=== PATIENT | male | born 1945 | race Caucasian/White ===

== ENCOUNTER 2017-10-27 09:12 | Observation (INO) | payer MEDICARE, OTHER ==
[2017-10-27] VITALS (9 sets, daily range): BP systolic 100–132; BP diastolic 65–89; PULSE 86–107; RESP 16–20; TEMP 96.9–97.9; O2SAT 96–98
[~2017-10-27] VITALS: Ht 185.4 cm; Wt 118.0 kg
[2017-10-27] MEDS ORDERED: CENTCHW4 CHEW (09:22)
[2017-10-27] MEDS ORDERED: LIPI10TA PO (09:22)
[2017-10-27] MEDS ORDERED: LISI2.5T3 PO (09:22)
[2017-10-27] MEDS ORDERED: CORE25TA PO (09:22)
[2017-10-27] MEDS ORDERED: APIX2.5T PO (09:22)
[2017-10-27] MEDS ORDERED: METF500T PO (09:22)
[2017-10-27] MEDS ORDERED: FENO50TA PO (09:22)
[2017-10-27] MEDS ORDERED: ASPI-516 CHEW (09:22)
--- NOTE | 2017-10-27 10:06 | PD ---
HPI Chief Complaint: Back/ Neck Pain or Injury Time Seen by Provider: 09:33 Travel History International Travel<30 days: No Contact w/Intl Traveler<30days: No Traveled to known affect area: No History of Present Illness HPI 72yo M with PMH of CAD, AICD, sleep apnea presents to the ED with c/o bilateral lower extremity numbness that lasted about 5 minutes today. Pt said he was at [facility] and all of a sudden felt a little tingling in left leg. Then he was not able to feel both his legs from thigh down. He said he was not able to move as well. Said he has never had this before. He does have history of sciatica but never had numbness in bilateral lower extremities. Denies any history of TIA or CVA. Denies any fever, chest pain, sob, n/v, abdominal pain, back pain, fall. PFSH Past Medical History Hx Anticoagulant Therapy: Yes Atrial Fibrillation: Yes Heart Rhythm Problems: Yes (A-fib) Cardiac Catheterization: Yes Cardiovascular Problems: Yes (A-fib, MCCARTHY x5) High Cholesterol: Yes Chest Pain: Yes Diabetes: Yes Patient Takes Glucophage: Yes Diminished Hearing: No Hypertension: Yes Myocardial Infarction: Yes (x5) Tetanus Vaccination: Unknown Influenza Vaccination: No ?: Not Past Surgical History AICD: Yes Cardiac Surgery: Yes (CABG x5, Pacer in/out, second pacer in) Coronary Stent: Yes Social History Alcohol Use: No Tobacco Use: No Substance Use: No Allergies-Medications (Allergen,Severity, Reaction): Coded Allergies: MRI PRECAUTION (Verified Allergy, Severe, DEFIBRILLATOR, 10/27/17) PACEMAKER DIFIBRILLATOR, 10/27/17 DML amitriptyline (Verified Allergy, Unknown, 10/27/17) indomethacin (Verified Allergy, Unknown, 10/27/17) meperidine (Verified Allergy, Unknown, 10/27/17) Reported Meds & Prescriptions Reported Meds & Active Scripts Active Reported Lasix (Furosemide) 20 Mg Tab Unknown Dose PO BID Ecotrin Low Strength (Aspirin) 81 Mg Tabdr 81 Mg PO DAILY Eliquis (Apixaban) 2.5 Mg Tab 2.5 Mg PO BID Tricor (Fenofibrate) 145 Mg Tab 145 Mg PO EVERY OTHER DAY Takw with food. Metformin (Metformin HCl) 500 Mg Tab 500 Mg PO BIDPC Lisinopril 2.5 Mg Tab 2.5 Mg PO DAILY Lipitor (Atorvastatin Calcium) 10 Mg Tab 10 Mg PO HS Coreg (Carvedilol) 25 Mg Tab 25 Mg PO DAILY Centrum (Multiple Vitamins W/ Minerals) 1 Chew 1 Tab CHEW DAILY Review of Systems Except as stated in HPI: all other systems reviewed are Neg Physical Exam Narrative GENERAL: 72yo M not in distress. SKIN: Focused skin assessment warm/dry. HEAD: Atraumatic. Normocephalic. EYES: Pupils equal and round. No scleral icterus. No injection or drainage. CARDIOVASCULAR: Regular rate and rhythm. No murmur appreciated. RESPIRATORY: No accessory muscle use. Clear to auscultation. Breath sounds equal bilaterally. GASTROINTESTINAL: Abdomen soft, non-tender, nondistended. BACK: No midline ttp thoracic or lumbar ttp. MUSCULOSKELETAL: No obvious deformities. No clubbing. No cyanosis. No edema. NEUROLOGICAL: Awake and alert. No obvious cranial nerve deficits. Motor grossly within normal limits. Normal speech. PSYCHIATRIC: Appropriate mood and affect; insight and judgment normal. Data Data Last Documented VS Vital Signs Date Time Temp Pulse Resp B/P (MAP) Pulse Ox O2 Delivery O2 Flow Rate FiO2 10/27/17 11:08 95 102/66 (78) 96 10/27/17 09:23 97[address] Brain W/O Iv Contrast(Rout) (10/27/17 ) Complete Blood Count With Diff (10/27/17 09:43) Basic Metabolic Panel (Bmp) (10/27/17 09:43) Prothrombin Time / Inr (Pt) (10/27/17 09:43) Act Partial Throm Time (Ptt) (10/27/17 09:43) Electrocardiogram (10/27/17 ) Admit Order (Ed Use Only) (10/27/17 11:34) Labs Laboratory Tests Test 10/27/17 10:02 White Blood Count 4.0 TH/MM3 Red Blood Count 4.40 MIL/MM3 Hemoglobin 12.1 GM/DL Hematocrit 38.3 % Mean Corpuscular Volume 87.1 FL Mean Corpuscular Hemoglobin 27.5 PG Mean Corpuscular Hemoglobin Concent 31.6 % Red Cell Distribution Width 16.2 % Platelet Count 214 TH/MM3 Mean Platelet Volume 8.7 FL Neutrophils (%) (Auto) 64.7 % Lymphocytes (%) (Auto) 20.4 % Monocytes (%) (Auto) 8.2 % Eosinophils (%) (Auto) 3.0 % Basophils (%) (Auto) 3.7 % Neutrophils # (Auto) 2.7 TH/MM3 Lymphocytes # (Auto) 0.8 TH/MM3 Monocytes # (Auto) 0.3 TH/MM3 Eosinophils # (Auto) 0.1 TH/MM3 Basophils # (Auto) 0.1 TH/MM3 CBC Comment DIFF FINAL Differential Comment Prothrombin Time 16.2 SEC Prothromb Time International Ratio 1.6 RATIO Activated Partial Thromboplast Time 27.1 SEC Blood Urea Nitrogen 24 MG/DL Creatinine 1.30 MG/DL Random Glucose 100 MG/DL Calcium Level 8.8 MG/DL Sodium Level 141 MEQ/L Potassium Level 4.1 MEQ/L Chloride Level 104 MEQ/L Carbon Dioxide Level 27.6 MEQ/L Anion Gap 9 MEQ/L Estimat Glomerular Filtration Rate 55 ML/MIN MDM Medical Decision Making Medical Screen Exam Complete: Yes Emergency Medical Condition: Yes Interpretation(s) EKG: Paced rhythm. Differential Diagnosis TIA vs. sciatica vs. radiculopathy Narrative Course 72yo M here with sudden onset bilateral lower extremity numbness for about 5 minutes. Said he was not able to feel his legs from waist down and was not able to move. However, pt has full sensation now and no focal neurologic deficit. Denies any fall, back pain or urinary complaints. Labs reviewed, no leukocytosis. BMP unremarkable. CT brain negative. Pt given aspirin. Will admit for TIA work up and consult neurology. Discussed with Dr. Henriquez and accepted to his service. Pt took his ecotrin today already. Diagnosis Primary Impression: TIA (transient ischemic attack) Qualified Codes: G45.9 - Transient cerebral ischemic attack, unspecified Admitting Information Admitting Physician Requests: Observation JerilynMarily DO Oct 27, 2017 10:06
[2017-10-27 10:09] LABS: AUTOMATED NEUTROPHIL # 2.7 TH/MM3 (1.8-7.7); BASOPHIL # 0.1 TH/MM3 (0-0.2); BASOPHIL % 3.7 % (0.0-2.0); EOSINOPHIL # 0.1 TH/MM3 (0-0.4); HEMATOCRIT 38.3 % (39.0-51.0); HEMOGLOBIN 12.1 GM/DL (13.0-17.0); LYMPH % 20.4 % (9.0-44.0); LYMPHOCYTE # 0.8 TH/MM3 (1.0-4.8); MEAN CELL VOLUME 87.1 FL (80.0-100.0); MEAN CORPUSCULAR HEMOGLOBIN 27.5 PG (27.0-34.0); MEAN CORPUSCULAR HGB CONC 31.6 % (32.0-36.0); MEAN PLATELET VOLUME 8.7 FL (7.0-11.0); MONO % 8.2 % (0.0-8.0); MONOCYTE # 0.3 TH/MM3 (0-0.9); NEUT % 64.7 % (16.0-70.0); PLATELET COUNT 214 TH/MM3 (150-450); RED CELL DISTRIBUTION WIDTH 16.2 % (11.6-17.2)
[2017-10-27 10:27] LABS: CALCIUM 8.8 MG/DL (8.5-10.1)
[2017-10-27 10:28] LABS: BICARBONATE 27.6 MEQ/L (21.0-32.0)
[2017-10-27 10:30] LABS: INTERNATIONAL NORMALIZED RATIO 1.6 RATIO; PROTHROMBIN TIME - PATIENT 16.2 SEC (9.8-11.6)
[2017-10-27 10:31] LABS: CREATININE 1.3 MG/DL (0.60-1.30)
--- NOTE | 2017-10-27 10:56 | RADRPT ---
EXAM DATE/TIME: 10/27/2017 10:21 [facility] COMPARISON: No previous studies available for comparison. INDICATIONS : Leg weakness, TIA RADIATION DOSE: 64.16 CTDIvol (mGy) MEDICAL HISTORY : Cardiovascular disease. Hypercholesterolemia. Afib, stents SURGICAL HISTORY : CABG Pacemaker. ENCOUNTER: Initial ACUITY: 2 days PAIN SCALE: 0/10 LOCATION: Bilateral lower extremity TECHNIQUE: Multiple contiguous axial images were obtained of the head. Using automated exposure control and adj ustment of the mA and/or kV according to patient size, radiation dose was kept as low as reasonably a chievable to obtain optimal diagnostic quality images. DICOM format image data is available electro nically for review and comparison. FINDINGS: CEREBRUM: The ventricles are normal for age. No evidence of midline shift, mass lesion, hemorrhage or acute in farction. No extra-axial fluid collections are seen. POSTERIOR FOSSA: The cerebellum and brainstem are intact. The 4th ventricle is midline. The cerebellopontine angle i s unremarkable. EXTRACRANIAL: The visualized portion of the orbits is intact. SKULL: The calvaria is intact. No evidence of skull fracture. CONCLUSION: Normal examination. Jaci Aquino MD on October 27, 2017 at 10:53 Board Certified Radiologist. This report was verified electronically.
[2017-10-27] MEDS ORDERED: ASPI-147 PO (11:36)
[2017-10-27] MEDS ORDERED: FURO1TAB62 PO (12:56)
[2017-10-27] MEDS ORDERED: BISACODYL 10 MG SUPP RECTAL PRN (13:15)
[2017-10-27] MEDS ORDERED: MAGNESIUM HYDROXIDE SUSP 30 ML CUP PO PRN (13:15)
[2017-10-27] MEDS ORDERED: NALOXONE HCL 0.4 MG/ML AMP IV PUSH PRN (13:15)
[2017-10-27] MEDS ORDERED: SENNOSIDES 8.6 MG TAB PO PRN (13:15)
[2017-10-27] MEDS ORDERED: ACETAMINOPHEN 325 MG TAB PO PRN (13:15)
[2017-10-27] MEDS ORDERED: ONDANSETRON HCL 4 MG/2 ML VIAL IVP PRN (13:15)
[2017-10-27] MEDS ORDERED: SODIUM CHLORIDE 0.9% FLUSH 10 ML FLUSH IV FLUSH PRN (13:15)
[2017-10-27] MEDS ORDERED: PILL SPLITTER OTHER PRN (13:45)
--- NOTE | 2017-10-27 14:53 | RADRPT ---
EXAM DATE/TIME: 10/27/2017 13:42 [facility] COMPARISON: No previous studies available for comparison. INDICATIONS : Transient ischemic attack. MEDICAL HISTORY : Myocardial infarction. Hypercholesterolemia. Hypertension. Atrial fibrillation. Anticoagulant therapy . Diabetes. SURGICAL HISTORY : Pacemaker. Coronary artery stent. Cardiac catheterization. Rotator cuff surgery. Bilateral knee art hroscopy. ENCOUNTER: Initial ACUITY: 1 day PAIN SCORE: 0/10 LOCATION: Bilateral neck PEAK SYSTOLIC VELOCITIES (cm/sec): ICA/CCA RATIO: Right: 1.4 Left: 0.8 ICA: Right: 82.7 Left: 62.5 CCA: Right: 57.0 Left: 77.4 ECA: Right: 54.8 Left: 50.5 VERTEBRAL: Right: 36.2 antegrade Left: 36.5 antegrade Elevated flow velocities and ICA/CCA ratios have been found to correlate with increased degrees of vessel stenosis, calculated as percentage of diameter relative to a normal segment of distal ICA/CCA FINDINGS: RIGHT CAROTID: No significant stenosis is visualized. The waveforms are within normal limits. LEFT CAROTID: No significant stenosis is visualized. The waveforms are within normal limits. VERTEBRAL ARTERIES: Antegrade flow is seen in both vertebral arteries. MISCELLANEOUS: None. CONCLUSION: No evidence of hemodynamically significant carotid stenosis. Sixto Garcia MD on October 27, 2017 at 14:50 Board Certified Radiologist. This report was verified electronically.
[2017-10-27] MEDS ORDERED: ASPIRIN 325 MG TAB PO ONE (15:30)
[2017-10-27] MEDS: APIXABAN 2.5 MG TABLET PO SCH (20:11)
[2017-10-27] MEDS: CARVEDILOL 12.5 MG TAB PO SCH (20:12)
[2017-10-27] MEDS: FUROSEMIDE 40 MG TAB PO SCH (20:12)
[2017-10-27] MEDS: SODIUM CHLORIDE 0.9% FLUSH 10 ML FLUSH IV FLUSH SCH (20:12)
[2017-10-27] MEDS: DOCUSATE SODIUM 50 MG/SENNA 8.6 MG TAB PO SCH (20:12)
[2017-10-27] MEDS: metFORMIN HCL 500 MG TAB PO SCH (20:12)
--- NOTE | 2017-10-27 20:22 | RADRPT ---
EXAM DATE/TIME: 10/27/2017 19:20 [facility] COMPARISON: No previous studies available for comparison. INDICATIONS : Low back pain and leg weakness RADIATION DOSE: 40.45 CTDIvol (mGy) ; Patient body habitus MEDICAL HISTORY : Cardiovascular disease. Hypertension. Diabetes mellitus type 2. SURGICAL HISTORY : Pacemaker. CABGrotator cuff, bilat knee ENCOUNTER: Initial ACUITY: 1 day PAIN SCALE: 5/10 LOCATION: lower back TECHNIQUE: Volumetric scanning of the lumbar spine was performed. Multiplanar reconstructions in the sagittal, coronal and oblique axial planes were performed. Using automated exposure control and adjustment of the mA and/or kV according to patient size, radiation dose was kept as low as reasonably achievable t o obtain optimal diagnostic quality images. DICOM format image data is available electronically for review and comparison. FINDINGS: Mild to moderate levoconvex curvature of the lumbar spine centered around L3. No fracture or subluxat ion. Vertebral bodies have normal height. T12-L1: The disc height is within normal limits. Mild bilateral facet osteoarthritis. No foraminal or spinal stenosis. L1-L2: The disc has mild/moderate loss of height and vacuum phenomena. There is a small, broad/diffuse disc osteophyte complex and mild bilateral facet osteoarthritis. There is mild spinal stenosis, mostly lef t lateral recess. There is mild right and mild to moderate left foraminal stenosis. L2-L3: The disc has moderate to severe loss of height and vacuum phenomena. There is a small, broad/diffuse disc osteophyte complex and moderate bilateral facet osteoarthritis. No significant spinal stenosis. There is moderate bilateral foraminal stenosis. L3-L4: The disc has moderate loss of height and vacuum phenomena. There is a small, broad/diffuse disc osteo phyte complex. A superimposed and potentially more acute broad right paracentral/foraminal disc protr usion is present and probably impinging on the exiting right L3 nerve root. There is also mild mass e ffect on the right lateral recess. There is moderate to severe chronic appearing foraminal stenosis o n the left. L4-L5: The disc has moderate loss of height and vacuum phenomena. There is a small moderate, broad/diffuse d isc osteophyte complex and moderate to severe bilateral facet osteoarthritis. There is mild spinal st enosis, mostly the right lateral recess. There is moderate right and mild to moderate left foraminal stenosis. L5-S1: The disc has moderate loss of height and vacuum phenomena. There is a small, broad/diffuse disc osteo phyte complex and moderate to severe bilateral facet osteoarthritis. No significant spinal stenosis. There is severe bilateral foraminal stenosis. CONCLUSION: 1. Multilevel lumbar spine degenerative changes as above. 2. High-grade bilateral foraminal stenosis at L5/S1 and on the right at L3/L4.. Mostly mild and moder ate degrees foraminal stenosis at the other levels. Please see above. 3. No high-grade spinal stenosis demonstrated. 4. Mild to moderate levoconvex curvature. No fracture or acute appearing malalignment. Santana Garcia MD on October 27, 2017 at 20:12 Board Certified Radiologist. This report was verified electronically.
[2017-10-27] MEDS ORDERED: ATORVASTATIN 10 MG TAB PO SCH (21:00)
--- NOTE | 2017-10-27 21:10 | MB ---
cc: MIGUELINA NGUYỄN MD DATE OF CONSULTATION 10/27/17 He is a 72-year-old seen in neurological consultation. The patient was at the ____ store today when he developed leg numbness bilaterally. It started with lower back pain. It was a bit different from his usual sciatica in the past, because this time both legs were involved and, in the past, it used to be only one leg. He has a history of sciatica and he took shots to the lower back for quite some time but has not had a shot in months. He also has a history of left foot neuropathy which he admits being related to a vein being harvested for surgery in the past. He is diabetic. He describes that he was not quite able to walk for five or 10 minutes this morning. Then the symptoms subsided. He did not lose bladder control. He feels he is back to baseline. He has a history of atrial fibrillation. MEDICATIONS 1. Eliquis 2. Ecotrin. 3. Tricor 4. Metformin, 5. Lisinopril 6. Lipitor 7. Coreg NEUROLOGIC EXAM The patient is alert and very pleasant, oriented. Mentation is completely normal. Multiple family members are at bedside. Ocular movements and visual singh full. His strength seems normal. He is able to walk independently. He has good dorsiflexion of the feet. His reflexes were absent throughout and plantar response is flexor. Perception to position sense was normal in the distal lower extremities. ASSESSMENT 1. Transient lower back pain with some numbness in the lower extremities, lasting only a few minutes. 2. History of sciatica treated with injections in the past. 3. History of atrial fibrillation on aspirin and Eliquis. CT brain and carotid ultrasound were unremarkable. He denies a history of cancer. CBC essentially unremarkable as well as basic chemistry. I am going to add a lumbar spine CT scan without contrast. The patient has a pacemaker/AICD and there had been some arrhythmia. If the CT scan lumbar spine is unremarkable, then neurologic wong he could be followed as outpatient. Thank you for asking us to assist in his care. MD KAMRAN Izaguirre/SA /4:51 PM /8:44 PM
[2017-10-28] VITALS: BP 105/72; PULSE 84; RESP 16; TEMP 97.4; O2SAT 98
[2017-10-28 04:00] VITALS: BP 104/73; PULSE 70; RESP 16; TEMP 96.5; O2SAT 99
[2017-10-28 08:00] VITALS: BP 141/79; PULSE 78; RESP 18; TEMP 97.2; O2SAT 93
[2017-10-28 08:03] LABS: AUTOMATED NEUTROPHIL # 2.4 TH/MM3 (1.8-7.7); EOSINOPHIL # 0.1 TH/MM3 (0-0.4); EOSINOPHIL % 3.3 % (0.0-4.0); HEMATOCRIT 37.7 % (39.0-51.0); HEMOGLOBIN 11.9 GM/DL (13.0-17.0); LYMPH % 29.8 % (9.0-44.0); LYMPHOCYTE # 1.3 TH/MM3 (1.0-4.8); MEAN CELL VOLUME 87.3 FL (80.0-100.0); MEAN CORPUSCULAR HEMOGLOBIN 27.7 PG (27.0-34.0); MEAN CORPUSCULAR HGB CONC 31.7 % (32.0-36.0); MEAN PLATELET VOLUME 8.9 FL (7.0-11.0); MONO % 10.6 % (0.0-8.0); MONOCYTE # 0.4 TH/MM3 (0-0.9); NEUT % 55.3 % (16.0-70.0); PLATELET COUNT 201 TH/MM3 (150-450); RED BLOOD COUNT 4.31 MIL/MM3 (4.50-5.90); RED CELL DISTRIBUTION WIDTH 15.6 % (11.6-17.2); WHITE BLOOD COUNT 4.2 TH/MM3 (4.0-11.0)
--- NOTE | 2017-10-28 08:15 | HHI.HP ---
[facility]Staff Ad[facility] Diagnosis TIA Diagnoses: Travel History International Travel<30 Days: No Contact w/Intl Traveler <30 Da: No Traveled to Known Affected Are: No History of Present Illness LATE ENTRY DOS 10/27 72-year-old white male being admitted for possible strokelike symptoms. Patient was in his usual state of health until earlier today when he was at a gas station and experienced a sudden onset of bilateral lower extremity dysesthesias. He says this was alarming to him since he only has some pain and dysesthesias intermittently in his left leg with a known history of sciatica. But this was a new bilateral onset picture and he felt as if he also had an unsteady gait at the same time. This spontaneously self resolved shortly afterwards but alarmed him enough to come to the emergency department. He denies having any new pain anywhere in his body. Denies any facial droop, slurred speech, visual disturbances, or any focal weakness in any limb. He denies having any changes in his urinary or defecation abilities. He reports being compliant with all his medications. Identifies himself as a snowbird. Past Medical History Atrial Fibrillation: CAD Diabetes Hypertension Past Surgical History AICD: CABG x5, Pacer in/out, second pacer in Coronary Stent Social History Alcohol Use: No Tobacco Use: No Substance Use: No Review of Systems Except as stated in HPI: all other systems reviewed are Neg Past Family Social History Allergies: Coded Allergies: MRI PRECAUTION (Verified Allergy, Severe, DEFIBRILLATOR, 10/27/17) PACEMAKER DIFIBRILLATOR, 10/27/17 DML amitriptyline (Verified Allergy, Unknown, 10/27/17) indomethacin (Verified Allergy, Unknown, 10/27/17) meperidine (Verified Allergy, Unknown, 10/27/17) Physical Exam Vital Signs Vital Signs Date Time Temp Pulse Resp B/P (MAP) Pulse Ox O2 Delivery O2 Flow Rate FiO2 10/28/17 04:00 96.5 70 16 104/73 (83) 99 10/28/17 00:00 97.4 84 16 105/72 (83) 98 1/27/18 20:16 96 21 10/27/17 20:15 100/82 (88) 10/27/17 20:00 97.8 98 16 100/89 (93) 97 10/27/17 15:50 96.9 107 20 132/76 (94) 96 10/27/17 15:01 99 10/27/17 13:45 97.2 86 20 115/65 (82) 96 10/27/17 13:30 10/27/17 13:00 102 16 108/74 (85) 98 Room Air 10/27/17 11:08 95 102/66 (78) 96 10/27/17 09:23 97.9 91 18 115/89 (98) 96 Physical Exam VS: afebrile GENERAL: [Elderly white male, well-nourished, no acute distress SKIN: Warm and dry. EYES: Pupils equal and round. No scleral icterus. No injection or drainage. ENT: No nasal bleeding or discharge. CARDIOVASCULAR: Regular rate and rhythm. no murmurs RESPIRATORY: No accessory muscle use. Clear to auscultation. Breath sounds equal bilaterally. GASTROINTESTINAL: Abdomen soft, non-tender, nondistended. Extremities: No clubbing, cyanosis, or edema. No obvious deformities. MUSCULOSKELETAL: grossly intact ROM with 5/5 strength in upper and lower extremities proximally; adequate muscle bulk and tone for age and habitus NEUROLOGICAL: Awake and alert. No obvious cranial nerve deficits. No facial droop nor slurred speech noted. Intact sensation to light finger touch bilaterally over face, upper extremities and lower extremities. Has symmetrical +1 reflexes over bilateral patellas. PSYCHIATRIC: Appropriate mood and affect; insight and judgment normal. Laboratory Laboratory Tests Test 10/27/17 10:02 10/28/17 07:31 White Blood Count 4.0 4.2 Red Blood Count 4.40 4.31 Hemoglobin 12.1 11.9 Hematocrit 38.3 37.7 Mean Corpuscular Volume 87.1 87.3 Mean Corpuscular Hemoglobin 27.5 27.7 Mean Corpuscular Hemoglobin Concent 31.6 31.7 Red Cell Distribution Width 16.2 15.6 Platelet Count 214 201 Mean Platelet Volume 8.7 8.9 Neutrophils (%) (Auto) 64.7 55.3 Lymphocytes (%) (Auto) 20.4 29.8 Monocytes (%) (Auto) 8.2 10.6 Eosinophils (%) (Auto) 3.0 3.3 Basophils (%) (Auto) 3.7 1.0 Neutrophils # (Auto) 2.7 2.4 Lymphocytes # (Auto) 0.8 1.3 Monocytes # (Auto) 0.3 0.4 Eosinophils # (Auto) 0.1 0.1 Basophils # (Auto) 0.1 0.0 CBC Comment DIFF FINAL DIFF FINAL Differential Comment Prothrombin Time 16.2 Prothromb Time International Ratio 1.6 Activated Partial Thromboplast Time 27.1 Blood Urea Nitrogen 24 Creatinine 1.30 Random Glucose 100 Calcium Level 8.8 Sodium Level 141 141 Potassium Level 4.1 3.5 Chloride Level 104 103 Carbon Dioxide Level 27.6 Anion Gap 9 Estimat Glomerular Filtration Rate 55 Result Diagram: 10/28/17 0731 10/27/17 1002 Gabrielle VTE Risk Assessment Caprini VTE Risk Assessment: Mod/High Risk (score >= 2) Caprini Risk Assessment Model Point Value = 1 Point Value = 2 Point Value = 3 Point Value = 5 Age 41-60 Minor surgery BMI > 25 kg/m2 Swollen legs Varicose veins or History of unexplained or recurrent spontaneous Oral contraceptives or hormone replacement Sepsis (< 1 month) Serious lung disease, including pneumonia (< 1 month) Abnormal pulmonary function Acute myocardial infarction Congestive heart failure (< 1 month) History of inflammatory bowel disease Medical patient at bed rest Age 61-74 Arthroscopic surgery Major open surgery (> 45 min) Laparoscopic surgery (> 45 min) Malignancy Confined to bed (> 72 hours) Immobilizing plaster cast Central venous access Age >= 75 History of VTE Family history of VTE Factor V Leiden Prothrombin [id number] Lupus anticoagulant Anticardiolipin antibodies Elevated serum homocysteine Heparin-induced thrombocytopenia Other congenital or acquired thrombophilia Stroke (< 1 month) Elective arthroplasty Hip, pelvis, or leg fracture Acute spinal cord injury (< 1 month) Prophylaxis Regimen Total Risk Factor Score Risk Level Prophylaxis Regimen 0-1 Low Early ambulation 2 Moderate Order ONE of the following: *Sequential Compression Device (SCD) *Heparin 5000 units SQ BID 3-4 Higher Order ONE of the following medications: *Heparin 5000 units SQ TID *Enoxaparin/Lovenox 40 mg SQ daily (WT < 150 kg, CrCl > 30 mL/min) *Enoxaparin/Lovenox 30 mg SQ daily (WT < 150 kg, CrCl > 10-29 mL/min) *Enoxaparin/Lovenox 30 mg SQ BID (WT < 150 kg, CrCl > 30 mL/min) AND/OR *Sequential Compression Device (SCD) 5 or more Highest Order ONE of the following medications: *Heparin 5000 units SQ TID (Preferred with Epidurals) *Enoxaparin/Lovenox 40 mg SQ daily (WT < 150 kg, CrCl > 30 mL/min) *Enoxaparin/Lovenox 30 mg SQ daily (WT < 150 kg, CrCl > 10-29 mL/min) *Enoxaparin/Lovenox 30 mg SQ BID (WT < 150 kg, CrCl > 30 mL/min) AND *Sequential Compression Device (SCD) Assessment and Plan Assessment and Plan Bilateral lower stomach dysesthesias - Suspect some nerve pinching, maybe spinal stenosis. Appreciate neurology consultation. Case was discussed with emergency room physician. CT spine scan is pending - aspirin A. fib - Continue home Eliquis Diabetes - Continue home metformin CAD/hypertension - Continue Lasix, lisinopril, Coreg On eliquis. Bennett Henriquez MD Oct 28, 2017 08:15
[2017-10-28 08:19] LABS: BICARBONATE 30.9 MEQ/L (21.0-32.0); CALCIUM 8.7 MG/DL (8.5-10.1)
[2017-10-28 08:23] LABS: CREATININE 1.3 MG/DL (0.60-1.30)
[2017-10-28] MEDS ORDERED: ASPIRIN 81 MG CHEW TAB CHEW SCH (09:00)
[2017-10-28] MEDS ORDERED: LISINOPRIL 5 MG TAB PO SCH (09:00)
[2017-10-28] MEDS: DOCUSATE SODIUM 50 MG/SENNA 8.6 MG TAB PO SCH (09:00)
[2017-10-28] MEDS: APIXABAN 2.5 MG TABLET PO SCH (09:32)
[2017-10-28] MEDS: CARVEDILOL 12.5 MG TAB PO SCH (09:33)
[2017-10-28] MEDS: metFORMIN HCL 500 MG TAB PO SCH (09:33)
[2017-10-28] MEDS: FUROSEMIDE 40 MG TAB PO SCH (09:33)
[2017-10-28] MEDS: SODIUM CHLORIDE 0.9% FLUSH 10 ML FLUSH IV FLUSH SCH (09:34)
--- NOTE | 2017-10-28 09:48 | HHI.DCPOC ---
Discharge Care Plan Diagnosis: (1) Lumbar foraminal stenosis Goals to Promote Your Health * To prevent worsening of your condition and complications * To maintain your health at the optimal level Directions to Meet Your Goals Take your medications as prescribed Follow your dietary instruction Follow activity as directed Keep your appointments as scheduled Take your immunizations and boosters as scheduled If your symptoms worsen call your PCP, if no PCP go to Urgent Care Center or Emergency Room Smoking is Dangerous to Your Health. Avoid second hand smoke Call the 24-hour hour crisis hotline for domestic abuse at Bennett Henriquez MD Oct 28, 2017 09:48
--- NOTE | 2017-10-28 09:51 | HHI.PR ---
Subjective Remarks Nursing denies any deterioration since last night. Patient says he feels great , just as well as a. Wanting to go home. Objective Vital Signs Date Time Temp Pulse Resp B/P (MAP) Pulse Ox O2 Delivery O2 Flow Rate FiO2 10/28/17 08:00 97.2 78 18 141/79 (99) 93 10/28/17 04:00 96.5 70 16 104/73 (83) 99 10/28/17 00:00 97.4 84 16 105/72 (83) 98 10/27/17 20:16 96 21 10/27/17 20:15 100/82 (88) 10/27/17 20:00 97.8 98 16 100/89 (93) 97 10/27/17 15:50 96.9 107 20 132/76 (94) 96 10/27/17 15:01 99 10/27/17 13:45 97.2 86 20 115/65 (82) 96 10/27/17 13:30 10/27/17 13:00 102 16 108/74 (85) 98 Room Air 10/27/17 11:08 95 102/66 (78) 96 I/O 10/27/17 10/27/17 10/27/17 10/28/17 10/28/17 10/28/17 07:00 15:00 23:00 07:00 15:00 23:00 Intake Total 480 ml 480 ml Balance 480 ml 480 ml Intake Oral 480 ml 480 ml # Voids 4 3 # Bowel Movements 0 0 Result Diagram: 10/28/17 0731 10/28/17 0731 Objective Remarks Stands up with no issue, intact gait which is steady No acute distress A/P Assessment and Plan Lower extremity dysesthesias - This is most likely from the lumbar foraminal stenosis that is noted on the patient's CT. No evidence of any strokelike symptoms in the history or during his hospitalization. Patient was counseled on the importance of seeing a neurosurgeon sometime in the future especially if his symptoms return. Patient has met maximal benefit from hospitalization and is currently stable for discharge. Requires no assistive ambulatory devices from physical therapy standpoint. Bennett Henriquez MD Oct 28, 2017 09:51
--- NOTE | 2017-10-28 11:01 | HHI.PR ---
Review/Management Daily Summary 10/28 no sx recurrence ok neuro wong to d/c and follow as outpt Subjective Subjective Comments No acute events reported No headache No chest pain No dyspnea Active Medications Current Medications Medications (Trade) Dose Ordered Sig/Ruperto Route Start Time Stop Time Status Last Admin (NS Flush) 2 ml UNSCH PRN IV FLUSH 10/27/17 13:15 (NS Flush) 2 ml BID IV FLUSH 10/27/17 21:00 10/28/17 09:34 (Tylenol) 650 mg Q4H PRN PO 10/27/17 13:15 (Zofran Inj) 4 mg Q6H PRN IVP 10/27/17 13:15 (Narcan Inj) 0.4 mg UNSCH PRN IV PUSH 10/27/17 13:15 (Samantha-Colace) 1 tab BID PO 10/27/17 21:00 (Milk Of Magnesia Liq) 30 ml Q12H PRN PO 10/27/17 13:15 (Senokot) 17.2 mg Q12H PRN PO 10/27/17 13:15 (Dulcolax Supp) 10 mg DAILY PRN RECTAL 10/27/17 13:15 (Lipitor) 10 mg HS PO 10/27/17 21:00 10/27/17 20:12 (Coreg) 12.5 mg BID PO 10/27/17 21:00 10/28/17 09:33 (Tricor) 145 mg EVERY OTHER DAY PO 10/29/17 09:00 (Prinivil) 2.5 mg DAILY PO 10/28/17 09:00 10/28/17 09:33 (Pill Splitter) 1 ea UNSCH PRN OTHER 10/27/17 13:45 (Aspirin Chew) 81 mg DAILY CHEW 10/28/17 09:00 10/28/17 09:33 (Lasix) 40 mg BID@0900,1900 PO 10/27/17 19:00 10/28/17 09:33 (Glucophage) 500 mg BIDPC PO 10/27/17 19:00 10/28/17 09:33 (Eliquis) 2.5 mg BID PO 10/27/17 21:00 10/28/17 09:32 Allergies Allergies Coded Allergies MRI PRECAUTION (Verified Allergy, Severe, DEFIBRILLATOR, 10/27/17) amitriptyline (Verified Allergy, Unknown, 10/27/17) indomethacin (Verified Allergy, Unknown, 10/27/17) meperidine (Verified Allergy, Unknown, 10/27/17) Exam I&O / VS Vital Signs Date Time Temp Pulse Resp B/P (MAP) Pulse Ox O2 Delivery O2 Flow Rate FiO2 10/28/17 08:00 97.2 78 18 141/79 (99) 93 10/28/17 04:00 96.5 70 16 104/73 (83) 99 10/28/17 00:00 97.4 84 16 105/72 (83) 98 10/27/17 20:16 96 21 10/27/17 20:15 100/82 (88) 10/27/17 20:00 97.8 98 16 100/89 (93) 97 10/27/17 15:50 96.9 107 20 132/76 (94) 96 10/27/17 15:01 99 10/27/17 13:45 97.2 86 20 115/65 (82) 96 10/27/17 13:30 10/27/17 13:00 102 16 108/74 (85) 98 Room Air 10/27/17 11:08 95 102/66 (78) 96 Objective Radiology Results Last 48 hours Impressions Lumbar Spine CT 10/27/17 0000 Signed Impressions: Service Date/Time: Friday, October 27, 2017 19:20 - CONCLUSION: 1. Multilevel lumbar spine degenerative changes as above. 2. High-grade bilateral foraminal stenosis at L5/S1 and on the right at L3/L4.. Mostly mild and moderate degrees foraminal stenosis at the other levels. Please see above. 3. No high-grade spinal stenosis demonstrated. 4. Mild to moderate levoconvex curvature. No fracture or acute appearing malalignment. Santana Garcia MD Head CT 10/27/17 0000 Signed Impressions: Service Date/Time: Friday, October 27, 2017 10:21 - CONCLUSION: Normal examination. Jaci Aquino MD Carotid Artery Ultrasound 10/27/17 0000 Signed Impressions: Service Date/Time: Friday, October 27, 2017 13:42 - CONCLUSION: No evidence of hemodynamically significant carotid stenosis. Sixto Garcia MD Micro and Labs Laboratory Tests Test 10/28/17 07:31 White Blood Count 4.2 Red Blood Count 4.31 Hemoglobin 11.9 Hematocrit 37.7 Mean Corpuscular Volume 87.3 Mean Corpuscular Hemoglobin 27.7 Mean Corpuscular Hemoglobin Concent 31.7 Red Cell Distribution Width 15.6 Platelet Count 201 Mean Platelet Volume 8.9 Neutrophils (%) (Auto) 55.3 Lymphocytes (%) (Auto) 29.8 Monocytes (%) (Auto) 10.6 Eosinophils (%) (Auto) 3.3 Basophils (%) (Auto) 1.0 Neutrophils # (Auto) 2.4 Lymphocytes # (Auto) 1.3 Monocytes # (Auto) 0.4 Eosinophils # (Auto) 0.1 Basophils # (Auto) 0.0 CBC Comment DIFF FINAL Differential Comment Blood Urea Nitrogen 22 Creatinine 1.30 Random Glucose 81 Calcium Level 8.7 Sodium Level 141 Potassium Level 3.5 Chloride Level 103 Carbon Dioxide Level 30.9 Anion Gap 7 Estimat Glomerular Filtration Rate 55 Sarah Burgos MD Oct 28, 2017 11:01
--- NOTE | 2017-10-28 12:41 | EKG ---
Date Performed: 10/27/2017 Time Performed: 10:54:22 PTAGE: 72 years EKG: UNCERTAIN IRREGULAR RHYTHM ELECTRONIC VENTRICULAR PACEMAKER -- CONTOUR ANALYSIS BASED ON IN TRINSIC RHYTHM INTRAVENTRICULAR CONDUCTION DELAY Clinical correlation is recommended ABNORMAL ECG PREVIOUS TRACING : 10/27/2017 10.11 DOCTOR: Marquez Almanzar Interpretating Date/Time 10/28/2017 12:39:29
[2017-10-29] MEDS ORDERED: FENOFIBRATE 145 MG TAB PO SCH (09:00)
== END 2017-10-28 11:54 | disposition home or self-care (01) ==
LOC: PHED 09:12 → PHEDA 11:35 → PH3B 13:24
PROVIDERS: ADMIT Hospitalist; ATTEND Hospitalist
DX: M48.061 Spinal stenosis, lumbar region without neurogenic claudication (principal); R20.8 Other disturbances of skin sensation; I10 Essential (primary) hypertension; I25.10 Atherosclerotic heart disease of native coronary artery without angina pectoris; I25.2 Old myocardial infarction; I48.91 Unspecified atrial fibrillation; E11.9 Type 2 diabetes mellitus without complications; E78.00 Pure hypercholesterolemia, unspecified; G47.30 Sleep apnea, unspecified; Z79.84 Long term (current) use of oral hypoglycemic drugs; Z95.0 Presence of cardiac pacemaker; Z95.5 Presence of coronary angioplasty implant and graft; Z95.1 Presence of aortocoronary bypass graft
CPT/HCPCS: 70450; 72131; 80048; 85025; 85610; 85730; 93005; 93880; 97161; 97166; 99285; G0378; G8987; G8988; G8989

== ENCOUNTER 2017-12-09 11:24 | Inpatient (IN) | payer MEDICARE, OTHER ==
[2017-12-09] VITALS (33 sets, daily range): BP systolic 74–113; BP diastolic 46–75; PULSE 108–140; RESP 18–34; TEMP 99.1–99.9; O2SAT 92–100
[~2017-12-09] VITALS: Ht 182.9 cm; Wt 116.9 kg
[~2017-12-09 11:24] MED LIST: APIX2.5T PO; ASPI-147 PO; CENTCHW4 CHEW; CORE25TA PO; FENO50TA PO; FURO1TAB62 PO; LIPI10TA PO; LISI2.5T3 PO; METF500T PO
[2017-12-09 12:15] LABS: AUTOMATED NEUTROPHIL # 10.6 TH/MM3 (1.8-7.7); BASOPHIL # 0.3 TH/MM3 (0-0.2); BASOPHIL % 2.7 % (0.0-2.0); HEMATOCRIT 36.9 % (39.0-51.0); HEMOGLOBIN 12.3 GM/DL (13.0-17.0); LYMPH % 5.7 % (9.0-44.0); LYMPHOCYTE # 0.7 TH/MM3 (1.0-4.8); MEAN CELL VOLUME 87.5 FL (80.0-100.0); MEAN CORPUSCULAR HEMOGLOBIN 29.1 PG (27.0-34.0); MEAN CORPUSCULAR HGB CONC 33.2 % (32.0-36.0); MEAN PLATELET VOLUME 10.2 FL (7.0-11.0); MONO % 6.1 % (0.0-8.0); MONOCYTE # 0.7 TH/MM3 (0-0.9); NEUT % 85.5 % (16.0-70.0); PLATELET COUNT 127 TH/MM3 (150-450); RED BLOOD COUNT 4.21 MIL/MM3 (4.50-5.90); RED CELL DISTRIBUTION WIDTH 16.8 % (11.6-17.2); WHITE BLOOD COUNT 12.3 TH/MM3 (4.0-11.0)
[2017-12-09] MEDS ORDERED: SODIUM CHLORID 0.9% 500 ML INJ 500 ML IV ONE (12:15)
[2017-12-09] MEDS ORDERED: cefTRIAXone INJ 1,000 MG in SODIUM CHLORIDE 0.9% INJ 100 ML IV ONE (12:15)
--- NOTE | 2017-12-09 12:23 | PD ---
HPI Chief Complaint: Complaint Time Seen by Provider: 12:11 Travel History International Travel<30 days: No Contact w/Intl Traveler<30days: No Traveled to known affect area: No History of Present Illness HPI Patient primarily presents with complaints of dysuria and urinary retention over the last 2-3 days. Reports a subjective fever. States that his urine is concentrated and foul-smelling. Denies any pain on urination frequency of urination or hematuria. Denies any history of enlarged prostate. Reports a recent history of constipation with a bowel movement this morning. Reports a past medical history of cardiomyopathy with coronary artery disease and CABG. [place] 5. Defibrillator placement. History of atrial fibrillation. Currently on Eliquis. Uses C Pap for obstructive sleep apnea. No local patient placement coordinator[place] Additionally reports left testicular discomfort with any manipulation. Denies any new chest pain or shortness of breath. Denies any nausea vomiting or diarrhea. No new rashes. PFSH Past Medical History Hx Anticoagulant Therapy: Yes Arthritis: Yes Atrial Fibrillation: Yes Heart Rhythm Problems: Yes (A-fib) Cancer: No Cardiac Catheterization: Yes Cardiovascular Problems: Yes (A-fib, MCCARTHY x5) High Cholesterol: Yes Chest Pain: Yes Cerebrovascular Accident: Yes (WORKUP WITH THIS ADMISSION ) Diabetes: Yes (TYPE 2 ) Patient Takes Glucophage: No Diminished Hearing: No Endocrine: Yes Genitourinary: No Hypertension: Yes Implanted Vascular Access Dvce: Yes Musculoskeletal: Yes Neurologic: Yes Psychiatric: No Reproductive: No Respiratory: No Myocardial Infarction: Yes (x5) ?: Not Past Surgical History AICD: Yes Cardiac Surgery: Yes (DOUBLE BYPASS, Pacer in/out, DEFIB ABD PACER IN ) Coronary Stent: Yes Pacemaker: Yes Other Surgery: Yes Social History Alcohol Use: No Tobacco Use: No Substance Use: No Allergies-Medications (Allergen,Severity, Reaction): Coded Allergies: MRI PRECAUTION (Verified Allergy, Severe, DEFIBRILLATOR, 12/09/17) PACEMAKER DIFIBRILLATOR, 10/27/17 DML amitriptyline (Verified Allergy, Unknown, 12/09/17) indomethacin (Verified Allergy, Unknown, 12/09/17) meperidine (Verified Allergy, Unknown, 12/09/17) Reported Meds & Prescriptions Reported Meds & Active Scripts Active Reported Lasix (Furosemide) 20 Mg Tab Unknown Dose PO BID Ecotrin Low Strength (Aspirin) 81 Mg Tabdr 81 Mg PO DAILY Eliquis (Apixaban) 2.5 Mg Tab 2.5 Mg PO BID Tricor (Fenofibrate) 145 Mg Tab 145 Mg PO EVERY OTHER DAY Takw with food. Lisinopril 2.5 Mg Tab 2.5 Mg PO DAILY Coreg (Carvedilol) 25 Mg Tab 25 Mg PO DAILY Centrum (Multiple Vitamins W/ Minerals) 1 Chew 1 Tab CHEW DAILY Review of Systems General / Constitutional: Positive: Chills Eyes: No: Visual changes HENT: No: Headaches Cardiovascular: No: Chest Pain or Discomfort Respiratory: No: Shortness of Breath Gastrointestinal: No: Abdominal Pain Genitourinary: Positive: Dysuria, Decreased Urinary Output Musculoskeletal: No: Pain Skin: No Rash Neurologic: No: Weakness Psychiatric: No: Depression Endocrine: No: Polydipsia Hematologic/Lymphatic: No: Easy Bruising Physical Exam Narrative GENERAL: Well-nourished, well-developed patient. SKIN: Focused skin assessment warm/dry. HEAD: Normocephalic. EYES: No scleral icterus. No injection or drainage. NECK: Supple, trachea midline. No JVD or lymphadenopathy. CARDIOVASCULAR: Tachycardic with irregular rhythm RESPIRATORY: Breath sounds equal bilaterally. No accessory muscle use. GASTROINTESTINAL: Abdomen soft, non-tender, nondistended. Examination left testicle reveals no abnormalities tender to touch MUSCULOSKELETAL: No cyanosis, or edema. BACK: Nontender without obvious deformity. No CVA tenderness. Data Data Last Documented VS Vital Signs Date Time Temp Pulse Resp B/P (MAP) Pulse Ox O2 Delivery O2 Flow Rate FiO2 12/09/17 14:41 120 20 76/64 (68) 100 Nasal Cannula 1.00 12/09/17 13:29 99.9 Orders Orders Complete Blood Count With Diff (12/09/17 11:38) Comprehensive Metabolic Panel (12/09/17 11:38) Urinalysis - C+S If Indicated (12/09/17 11:38) Troponin I (12/09/17 11:38) Act Partial Throm Time (Ptt) (12/09/17 11:38) Prothrombin Time / Inr (Pt) (12/09/17 11:38) Electrocardiogram (12/09/17 ) Lactic Acid Sepsis Protocol (12/09/17 12:11) Blood Culture (12/09/17 12:11) Chest, Single Ap (12/09/17 12:11) Blood Glucose (12/09/17 12:11) Ecg Monitoring (12/09/17 12:11) Iv Access Insert/Monitor (12/09/17 12:11) Oximetry (12/09/17 12:11) Oxygen Administration (12/09/17 12:11) Sodium Chlorid 0.9% 500 Ml Inj (Ns 500 M (12/09/17 12:15) Ceftriaxone Inj (Rocephin Inj) (12/09/17 12:15) Sepsis Workup Initiated (12/09/17 ) Urinary Catheter Insert/Apply (12/09/17 12:23) Urine Culture (12/09/17 13:10) Admit Order (Ed Use Only) (12/09/17 ) Inshore [employer]sea [employer] Officer / Telemetry [id number] (12/09/17 15:07) Vital Signs (Adult) Q4H (12/09/17 15:07) Activity Oob With Assistance (12/09/17 15:07) Notify Dr: Other (12/09/17 15:07) Labs Laboratory Tests Test 12/09/17 11:45 12/09/17 12:20 12/09/17 13:10 White Blood Count 12.3 TH/MM3 Red Blood Count 4.21 MIL/MM3 Hemoglobin 12.3 GM/DL Hematocrit 36.9 % Mean Corpuscular Volume 87.5 FL Mean Corpuscular Hemoglobin 29.1 PG Mean Corpuscular Hemoglobin Concent 33.2 % Red Cell Distribution Width 16.8 % Platelet Count 127 TH/MM3 Mean Platelet Volume 10.2 FL Neutrophils (%) (Auto) 85.5 % Lymphocytes (%) (Auto) 5.7 % Monocytes (%) (Auto) 6.1 % Eosinophils (%) (Auto) 0.0 % Basophils (%) (Auto) 2.7 % Neutrophils # (Auto) 10.6 TH/MM3 Lymphocytes # (Auto) 0.7 TH/MM3 Monocytes # (Auto) 0.7 TH/MM3 Eosinophils # (Auto) 0.0 TH/MM3 Basophils # (Auto) 0.3 TH/MM3 CBC Comment AUTO DIFF Differential Total Cells Counted 100 Neutrophils % (Manual) 72 % Band Neutrophils % 15 % Lymphocytes % 5 % Monocytes % 8 % Neutrophils # (Manual) 10.7 TH/MM3 Differential Comment FINAL DIFF MANUAL Platelet Estimate LOW Platelet Morphology Comment NORMAL Red Cell Morphology Comment NORMAL Prothrombin Time 17.4 SEC Prothromb Time International Ratio 1.7 RATIO Activated Partial Thromboplast Time 30.8 SEC Blood Urea Nitrogen 35 MG/DL Creatinine 1.80 MG/DL Random Glucose 103 MG/DL Total Protein 7.4 GM/DL Albumin 3.3 GM/DL Calcium Level 9.2 MG/DL Alkaline Phosphatase 74 U/L Aspartate Amino Transf (AST/SGOT) 20 U/L Alanine Aminotransferase (ALT/SGPT) 25 U/L Total Bilirubin 2.4 MG/DL Sodium Level 135 MEQ/L Potassium Level 4.2 MEQ/L Chloride Level 99 MEQ/L Carbon Dioxide Level 25.1 MEQ/L Anion Gap 11 MEQ/L Estimat Glomerular Filtration Rate 37 ML/MIN Troponin I 0.02 NG/ML Lactic Acid Level 1.6 mmol/L Urine Collection Type CLEAN CATCH Urine Color ORANGE Urine Turbidity TURBID Urine pH 5.0 Urine Specific [place] GREATER/EQUAL 1.030 Urine Protein 100 mg/dL Urine Glucose (UA) NEG mg/dL Urine Ketones TRACE mg/dL Urine Occult Blood LARGE Urine Nitrite POS Urine Bilirubin MOD Urine Urobilinogen MG/DL Urine Leukocyte Esterase TRACE Urine RBC 15-19 /hpf Urine WBC 9-14 /hpf Urine WBC Clumps FEW Urine Squamous Epithelial Cells 6-8 /hpf Urine Amorphous Sediment MOD Urine Bacteria FEW /hpf Urine Hyaline Casts 0-2 /lpf Microscopic Urinalysis Comment CULTURE INDICATED Urine Collection Time 1300 MDM Medical Decision Making Medical Screen Exam Complete: Yes Emergency Medical Condition: Yes Differential Diagnosis Urinary retention, UTI, urosepsis, uncontrolled A. fib with RVR, hypotension Narrative Course Assessment and plan discussed with patient and at bedside. EKG reveals atrial fibrillation with RVR rate of 136. Septic workup initiated. Hypotension noted with 500 cc normal saline given. We'll reassess tachycardia after fluids. Urinary catheter for retention. Initial dose of antibiotics provided. Urinalysis was positive for UTI. Leukocytosis is noted. Patient continues with a fibrillation with or the RVR and mild hypotension. Chest X-Ray 12/09/17 1211 Signed Impressions: Service Date/Time: Saturday, December 09, 2017 12:22 - CONCLUSION: 1. Cardiomegaly without evidence of significant congestion or acute air space disease. 2. Status post open heart surgery. 3. Cardiac pacemaker. Fracisco Espinoza MD Sepsis Criteria SIRS Criteria (2 or more): Heart rate over 90, WBC > 93935, < 4000 or > 10% bands Sepsis Criteria (SIRS+source): Infect source susp/known Severe Sepsis (+one): Hypotension Physician Communication Physician Communication Spoke with Dr Juan Ureña who is in agreement will admit. Diagnosis Primary Impression: UTI (urinary tract infection) Qualified Codes: N39.0 - Urinary tract infection, site not specified; R31.9 - Hematuria, unspecified Additional Impressions: Leukocytosis Qualified Codes: D72.829 - Elevated white blood cell count, unspecified Hypotension Qualified Codes: I95.9 - Hypotension, unspecified Tachycardia Afib Qualified Codes: I48.1 - Persistent atrial fibrillation Flako Balbuena MD Dec 09, 2017 12:23
[2017-12-09 12:37] LABS: INTERNATIONAL NORMALIZED RATIO 1.7 RATIO; PROTHROMBIN TIME - PATIENT 17.4 SEC (9.8-11.6)
--- NOTE | 2017-12-09 12:46 | RADRPT ---
EXAM DATE/TIME: 12/09/2017 12:22 [facility] COMPARISON: No previous studies available for comparison. INDICATIONS : Fever, cough MEDICAL HISTORY : None. SURGICAL HISTORY : Pacemaker. CABG. ENCOUNTER: Initial ACUITY: 3 days PAIN SCORE: 0/10 LOCATION: Bilateral chest FINDINGS: Heart is moderately enlarged. Postsurgical changes from prior open heart surgery are noted. Pacemaker is in place. The lungs are hypoaerated but otherwise free of significant airspace disease or congestion. Osseous structures appear intact. CONCLUSION: 1. Cardiomegaly without evidence of significant congestion or acute air space disease. 2. Status post open heart surgery. 3. Cardiac pacemaker. Fracisco Espinoza MD on December 09, 2017 at 12:43 Board Certified Radiologist. This report was verified electronically.
[2017-12-09 12:55] LABS: CHLORIDE 99 MEQ/L (98-107); SODIUM (NA) 135 MEQ/L (136-145)
[2017-12-09 12:59] LABS: CALCIUM 9.2 MG/DL (8.5-10.1)
[2017-12-09 13:00] LABS: ALBUMIN 3.3 GM/DL (3.4-5.0); BANDS 15 % (0-6); BICARBONATE 25.1 MEQ/L (21.0-32.0); BLOOD UREA NITROGEN 35 MG/DL (7-18); GLUCOSE,RANDOM 103 MG/DL (74-106); LYMPHOCYTES 5 % (9-44); MONOCYTES 8 % (0-8); NEUTROPHIL # MANUAL DIFF 10.7 TH/MM3 (1.8-7.7); POLYS (SEG NEUTROPHILS) 72 % (16-70)
[2017-12-09 13:03] LABS: ALT (GPT) 25 U/L (12-78); AST (GOT) 20 U/L (15-37); GLOMERULAR FILTRATION RATE 37 ML/MIN (>89)
[2017-12-09 13:04] LABS: TOTAL BILIRUBIN ADULT 2.4 MG/DL (0.2-1.0)
[2017-12-09 13:05] LABS: TOTAL PROTEIN 7.4 GM/DL (6.4-8.2)
[2017-12-09 13:06] LABS: ALKALINE PHOSPHATASE 74 U/L (45-117)
[2017-12-09 13:08] LABS: TROPONIN I 0.02 NG/ML (0.02-0.05)
[2017-12-09 13:32] LABS: BILIRUBIN, URINE MOD (NEG); BLOOD, URINE LARGE (NEG); GLUCOSE,URINE NEG (NEG); KETONE, URINE TRACE mg/dL (NEG); NITRITE,URINE POS (NEG); URINE LEUKOCYTE ESTERASE TRACE (NEG)
[2017-12-09 13:41] LABS: URINE COLOR ORANGE (YELLW/STRAW)
[2017-12-09 14:11] LABS: AMORPHOUS SEDIMENT, URINE MOD; BACTERIA, URINE FEW /hpf; HYALINE CAST, URINE 0-2 /lpf (RARE); RBC, URINE 15-19 /hpf (0-3); WHITE BLOOD CELL CLUMPS FEW
[2017-12-09] MEDS ORDERED: MAGNESIUM HYDROXIDE SUSP 30 ML CUP PO PRN (15:30)
[2017-12-09] MEDS ORDERED: TERBUTALINE INJ 1 MG/ML AMP SQ PRN (15:30)
[2017-12-09] MEDS ORDERED: SODIUM CHLORIDE 0.9% FLUSH 10 ML FLUSH IV FLUSH PRN ×2 (15:30)
[2017-12-09] MEDS ORDERED: CHLORHEXIDINE GLUCONATE 2 % 1 PACK (2 CLOTHS) TOP PRN (15:30)
[2017-12-09] MEDS ORDERED: NALOXONE HCL 0.4 MG/ML AMP IV PUSH PRN (15:30)
[2017-12-09] MEDS ORDERED: MISCELLANEOUS NURSING INFORMATION XX SCH (15:30)
[2017-12-09] MEDS ORDERED: ONDANSETRON HCL 4 MG/2 ML VIAL IVP PRN (15:30)
[2017-12-09] MEDS ORDERED: ENOXAPARIN SODIUM 40 MG/0.4 ML SYRINGE SQ SCH (16:00)
[2017-12-09] MEDS ORDERED: GLUCAGON 1 MG/ML VIAL OTHER PRN (16:30)
[2017-12-09] MEDS ORDERED: DEXTROSE 50% IN WATER 50 ML VIAL(D50) IV PUSH PRN (16:30)
[2017-12-09] MEDS ORDERED: Vancomycin Consult Pharmacy 1 EA OTHER SCH (16:30)
[2017-12-09] MEDS ORDERED: VANCOMYCIN INJ 1,000 MG in SODIUM CHLOR 0.9% 250 ML INJ 250 ML IV SCH (16:30)
--- NOTE | 2017-12-09 16:42 | HHI.HP ---
[facility]Staff Admission Diagnosis Urosepsis vs UTI with Afib and RVR Diagnoses: Travel History International Travel<30 Days: No Contact w/Intl Traveler <30 Da: No Traveled to Known Affected Are: No History of Present Illness Mr. Dunlap is a 72-year-old male. She does not have any knowledge of a history of BPH. He says that for the past 3 days she's been having difficulty urinating and difficulty holding his urine. She cites numerous episodes of extenuating himself. He is also been feeling bad, with decreased energy and chills. He came in to the emergency department and is found to have urinary retention, fever, and tachycardia. At baseline he has A. fib. This may be A. fib RVR or represent tachycardia sepsis. Blood cultures have been obtained in the ER. His hypotension makes poor candidate for diltiazem drip. Fluid boluses have been provided in the emergency department and are not providing much long-term benefit in regards to his blood pressure. He has no previous history of urinary tract infection. At baseline he does have cardiomyopathy, 5 myocardial infarctions, 2 vessel bypass surgery, and 7 coronary stents. She does not smoke or drink alcohol. 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 Review of Systems Constitutional: COMPLAINS OF: Fatigue, Fever, Chills, Night Sweats Eyes: DENIES: Blurred vision, Diplopia, Eye inflammation, Eye pain Ears, nose, mouth, throat: DENIES: Tinnitus, Hearing loss, Vertigo, Nasal discharge Respiratory: DENIES: Apneas, Cough, Snoring, Wheezing Cardiovascular: DENIES: Chest pain, Palpitations, Syncope, Dyspnea on Exertion Genitourinary: COMPLAINS OF: Urinary frequency, Urinary incontinence, Urgency, Dysuria Musculoskeletal: DENIES: Joint pain, Muscle aches, Stiffness, Joint Swelling Integumentary: DENIES: Abnormal pigmentation, Nail changes, Pruritus, Rash Hematologic/lymphatic: DENIES: Bruising, Lymphadenopathy Immunologic/allergic: DENIES: Eczema, Urticaria Neurologic: DENIES: Abnormal gait, Headache, Paresthesias Psychiatric: DENIES: Anxiety, Confusion, Hallucinations Past Family Social History Past Medical History Coronary artery disease Diabetes mellitus type 2 Hypertension Hyperlipidemia Atrial fibrillation Old myocardial infarction 5 Past Surgical History CABG 2 Defibrillator placement Bilateral knee surgeries Right rotator cuff surgery Coronary stents Reported Medications Reported Meds & Active Scripts Active Reported Lasix (Furosemide) 20 Mg Tab Unknown Dose PO BID Ecotrin Low Strength (Aspirin) 81 Mg Tabdr 81 Mg PO DAILY Eliquis (Apixaban) 2.5 Mg Tab 2.5 Mg PO BID Tricor (Fenofibrate) 145 Mg Tab 145 Mg PO EVERY OTHER DAY Takw with food. Lisinopril 2.5 Mg Tab 2.5 Mg PO DAILY Coreg (Carvedilol) 25 Mg Tab 25 Mg PO DAILY Centrum (Multiple Vitamins W/ Minerals) 1 Chew 1 Tab CHEW DAILY Allergies: Coded Allergies: MRI PRECAUTION (Verified Allergy, Severe, DEFIBRILLATOR, 12/09/17) PACEMAKER DIFIBRILLATOR, 10/27/17 DML amitriptyline (Verified Allergy, Unknown, 12/09/17) indomethacin (Verified Allergy, Unknown, 12/09/17) meperidine (Verified Allergy, Unknown, 12/09/17) Active Ordered Medications Administered Medications Medications (Trade) Dose Ordered Sig/Ruperto Route PRN Reason Start Time Stop Time Status Last Admin Dose Admin Enoxaparin Sodium (Lovenox Inj) 40 mg Q24H SQ 12/09/17 16:00 12/09/17 16:10 Family History No smoking, no alcohol, no illicit drug abuse Social History Coronary artery disease in patient's father and numerous males on father's side of the family Physical Exam Vital Signs Vital Signs Date Time Temp Pulse Resp B/P (MAP) Pulse Ox O2 Delivery O2 Flow Rate FiO2 12/09/17 16:00 122 20 100/70 (80) 96 Nasal Cannula 2.00 12/09/17 15:34 129 20 85/48 (60) 98 Nasal Cannula 1.00 12/09/17 14:41 120 20 76/64 (68) 100 Nasal Cannula 1.00 12/09/17 13:29 99.9 122 20 95/47 (63) 96 12/09/17 13:03 113 20 84/67 (73) 94 12/09/17 12:18 131 20 76/57 (63) 94 12/09/17 12:17 95 12/09/17 11:26 99.9 140 18 91/46 (20) 93 Physical Exam GENERAL: NAD, A&Ox3 HEAD: Normocephalic. NECK: Supple, trachea midline. No lymphadenopathy. EYES: No scleral icterus. No injection or drainage. CARDIOVASCULAR: Irregularly irregular rhythm with tachycardia, no murmurs RESPIRATORY: Breath sounds equal bilaterally. No accessory muscle use. GASTROINTESTINAL: Abdomen soft, non-tender, nondistended. MUSCULOSKELETAL: No cyanosis, or edema. SKIN: Warm and dry. NEURO: No focal neurological deficitis. Laboratory Laboratory Tests Test 12/09/17 11:45 12/09/17 12:20 12/09/17 13:10 White Blood Count 12.3 Red Blood Count 4.21 Hemoglobin 12.3 Hematocrit 36.9 Mean Corpuscular Volume 87.5 Mean Corpuscular Hemoglobin 29.1 Mean Corpuscular Hemoglobin Concent 33.2 Red Cell Distribution Width 16.8 Platelet Count 127 Mean Platelet Volume 10.2 Neutrophils (%) (Auto) 85.5 Lymphocytes (%) (Auto) 5.7 Monocytes (%) (Auto) 6.1 Eosinophils (%) (Auto) 0.0 Basophils (%) (Auto) 2.7 Neutrophils # (Auto) 10.6 Lymphocytes # (Auto) 0.7 Monocytes # (Auto) 0.7 Eosinophils # (Auto) 0.0 Basophils # (Auto) 0.3 CBC Comment AUTO DIFF Differential Total Cells Counted 100 Neutrophils % (Manual) 72 Band Neutrophils % 15 Lymphocytes % 5 Monocytes % 8 Neutrophils # (Manual) 10.7 Differential Comment FINAL DIFF MANUAL Platelet Estimate LOW Platelet Morphology Comment NORMAL Red Cell Morphology Comment NORMAL Prothrombin Time 17.4 Prothromb Time International Ratio 1.7 Activated Partial Thromboplast Time 30.8 Blood Urea Nitrogen 35 Creatinine 1.80 Random Glucose 103 Total Protein 7.4 Albumin 3.3 Calcium Level 9.2 Alkaline Phosphatase 74 Aspartate Amino Transf (AST/SGOT) 20 Alanine Aminotransferase (ALT/SGPT) 25 Total Bilirubin 2.4 Sodium Level 135 Potassium Level 4.2 Chloride Level 99 Carbon Dioxide Level 25.1 Anion Gap 11 Estimat Glomerular Filtration Rate 37 Troponin I 0.02 Lactic Acid Level 1.6 Urine Collection Type CLEAN CATCH Urine Color ORANGE Urine Turbidity TURBID Urine pH 5.0 Urine Specific [place] GREATER/EQUAL 1.030 Urine Protein 100 Urine Glucose (UA) NEG Urine Ketones TRACE Urine Occult Blood LARGE Urine Nitrite POS Urine Bilirubin MOD Urine Urobilinogen Urine Leukocyte Esterase TRACE Urine RBC 15-19 Urine WBC 9-14 Urine WBC Clumps FEW Urine Squamous Epithelial Cells 6-8 Urine Amorphous Sediment MOD Urine Bacteria FEW Urine Hyaline Casts 0-2 Microscopic Urinalysis Comment CULTURE INDICATED Urine Collection Time 1300 Date/Time Source Procedure Growth Status 12/09/17 12:20 Blood Peripheral Aerobic Blood Culture Pending Received 12/09/17 12:20 Blood Peripheral Anaerobic Blood Culture Pending Received 12/09/17 13:10 Urine Clean Catch Urine Culture Pending Received Result Diagram: 12/09/17 1145 12/09/17 1145 Imaging Last Impressions Chest X-Ray 12/09/17 1211 Signed Impressions: Service Date/Time: Saturday, December 09, 2017 12:22 - CONCLUSION: 1. Cardiomegaly without evidence of significant congestion or acute air space disease. 2. Status post open heart surgery. 3. Cardiac pacemaker. Fracisco Espinoza MD Septic Shock Reassessment Septic shock perfusion: reassessment completed Caprini VTE Risk Assessment Caprini VTE Risk Assessment: Mod/High Risk (score >= 2) Caprini Risk Assessment Model Point Value = 1 Point Value = 2 Point Value = 3 Point Value = 5 Age 41-60 Minor surgery BMI > 25 kg/m2 Swollen legs Varicose veins or History of unexplained or recurrent spontaneous Oral contraceptives or hormone replacement Sepsis (< 1 month) Serious lung disease, including pneumonia (< 1 month) Abnormal pulmonary function Acute myocardial infarction Congestive heart failure (< 1 month) History of inflammatory bowel disease Medical patient at bed rest Age 61-74 Arthroscopic surgery Major open surgery (> 45 min) Laparoscopic surgery (> 45 min) Malignancy Confined to bed (> 72 hours) Immobilizing plaster cast Central venous access Age >= 75 History of VTE Family history of VTE Factor V Leiden Prothrombin [id number] Lupus anticoagulant Anticardiolipin antibodies Elevated serum homocysteine Heparin-induced thrombocytopenia Other congenital or acquired thrombophilia Stroke (< 1 month) Elective arthroplasty Hip, pelvis, or leg fracture Acute spinal cord injury (< 1 month) Prophylaxis Regimen Total Risk Factor Score Risk Level Prophylaxis Regimen 0-1 Low Early ambulation 2 Moderate Order ONE of the following: *Sequential Compression Device (SCD) *Heparin 5000 units SQ BID 3-4 Higher Order ONE of the following medications: *Heparin 5000 units SQ TID *Enoxaparin/Lovenox 40 mg SQ daily (WT < 150 kg, CrCl > 30 mL/min) *Enoxaparin/Lovenox 30 mg SQ daily (WT < 150 kg, CrCl > 10-29 mL/min) *Enoxaparin/Lovenox 30 mg SQ BID (WT < 150 kg, CrCl > 30 mL/min) AND/OR *Sequential Compression Device (SCD) 5 or more Highest Order ONE of the following medications: *Heparin 5000 units SQ TID (Preferred with Epidurals) *Enoxaparin/Lovenox 40 mg SQ daily (WT < 150 kg, CrCl > 30 mL/min) *Enoxaparin/Lovenox 30 mg SQ daily (WT < 150 kg, CrCl > 10-29 mL/min) *Enoxaparin/Lovenox 30 mg SQ BID (WT < 150 kg, CrCl > 30 mL/min) AND *Sequential Compression Device (SCD) Assessment and Plan Problem List: (1) Afib ICD Code: I48.91 - Unspecified atrial fibrillation Status: Acute (2) Hypotension ICD Code: I95.9 - Hypotension, unspecified Status: Acute (3) UTI (urinary tract infection) ICD Code: N39.0 - Urinary tract infection, site not specified Status: Acute (4) Tachycardia ICD Code: R00.0 - Tachycardia, unspecified Status: Acute (5) Leukocytosis ICD Code: D72.829 - Elevated white blood cell count, unspecified Status: Acute (6) Septic shock ICD Code: A41.9 - Sepsis, unspecified organism; R65.21 - Severe sepsis with septic shock Assessment and Plan 72-year-old male admitted secondary to septic shock related to urinary tract infection Septic shock IV Levophed Admit to ICU Fluid boluses provided in the ER Treatment infections as below Follow blood cultures Urinary tract infection Rocephin Vancomycin Follow urine cultures A. fib RVR RVR may be related to tachycardia from sepsis Patient is a poor candidate for diltiazem IV right now due to hypotension Monitor on telemetry for now Treat infection Consider amiodarone if needed Diabetes mellitus type 2 Follow blood sugars Insulin sliding scale Diabetic diet Hyperlipidemia Continue present treatment Follow as an outpatient Hx of HTN Hold BP treatments for now Follow BP Old myocardial infarction CAD Asymptomatic Follow clinically No change to baseline management planned at this point Physician Certification 2 Midnight Certification Type: Admission for Inpatient Services Order for Inpatient Services The services are ordered in accordance with Medicare regulations or non- Medicare payer requirements, as applicable. In the case of services not specified as inpatient-only, they are appropriately provided as inpatient services in accordance with the 2-midnight benchmark. Estimated LOS (days): 5 days is the estimated time the patient will need to remain in the hospital, assuming treatment plan goals are met and no additional complications. Post-Hospital Plan: Home Problem Qualifiers (1) Afib: Qualified Codes: I48.1 - Persistent atrial fibrillation (2) Hypotension: Qualified Codes: I95.9 - Hypotension, unspecified (3) UTI (urinary tract infection): Qualified Codes: N39.0 - Urinary tract infection, site not specified; R31.9 - Hematuria, unspecified (4) Leukocytosis: Qualified Codes: D72.829 - Elevated white blood cell count, unspecified Hector Ureña MD Dec 09, 2017 16:42
[2017-12-09] MEDS: INSULIN ASPART SUPPLEMENTAL SCALE SQ SCH ×2 (17:00→20:37)
[2017-12-09] MEDS: VANCOMYCIN INJ 1,700 MG in SODIUM CHLORID 0.9% 500 ML INJ 500 ML IV SCH (17:41)
[2017-12-09] MEDS: NOREPINEPHRINE-DEXTROSE DRIP 250 ML IV PRN (18:43)
[2017-12-09] MEDS: APIXABAN 2.5 MG TABLET PO SCH (20:36)
[2017-12-09] MEDS: SODIUM CHLORIDE 0.9% FLUSH 10 ML FLUSH IV FLUSH SCH (20:36)
[2017-12-09] MEDS ORDERED: FAMOTIDINE 20 MG/2 ML VIAL IV PUSH PRN (21:00)
[2017-12-09] MEDS ORDERED: SODIUM CHLORIDE 0.9% FLUSH 10 ML FLUSH IV FLUSH SCH (21:00)
[2017-12-09] MEDS ORDERED: FAMOTIDINE 20 MG TAB PO SCH (21:00)
[2017-12-10] VITALS (48 sets, daily range): BP systolic 78–133; BP diastolic 56–84; PULSE 98–138; RESP 15–39; TEMP 97.8–99.1; O2SAT 90–98
[2017-12-10] MEDS ORDERED: DOCUSATE SODIUM 100 MG CAP PO ONE (00:30)
[2017-12-10] MEDS: NOREPINEPHRINE-DEXTROSE DRIP 250 ML IV PRN ×3 (02:22→17:17)
[2017-12-10] MEDS: CHLORHEXIDINE GLUCONATE 2 % 1 PACK (2 CLOTHS) TOP SCH (04:00)
[2017-12-10 05:30] LABS: BASOPHIL # 0.1 TH/MM3 (0-0.2); BASOPHIL % 0.8 % (0.0-2.0); EOSINOPHIL % 0.2 % (0.0-4.0); HEMATOCRIT 35.8 % (39.0-51.0); HEMOGLOBIN 11.8 GM/DL (13.0-17.0); LYMPH % 8.6 % (9.0-44.0); LYMPHOCYTE # 1.1 TH/MM3 (1.0-4.8); MEAN CORPUSCULAR HEMOGLOBIN 28.7 PG (27.0-34.0); MEAN PLATELET VOLUME 9.8 FL (7.0-11.0); MONO % 5.8 % (0.0-8.0); MONOCYTE # 0.7 TH/MM3 (0-0.9); NEUT % 84.6 % (16.0-70.0); PLATELET COUNT 128 TH/MM3 (150-450); RED BLOOD COUNT 4.11 MIL/MM3 (4.50-5.90); RED CELL DISTRIBUTION WIDTH 17.1 % (11.6-17.2); WHITE BLOOD COUNT 12.9 TH/MM3 (4.0-11.0)
[2017-12-10 05:37] LABS: CHLORIDE 101 MEQ/L (98-107); SODIUM (NA) 137 MEQ/L (136-145)
[2017-12-10 05:41] LABS: CALCIUM 8.6 MG/DL (8.5-10.1)
[2017-12-10 05:42] LABS: BLOOD UREA NITROGEN 39 MG/DL (7-18); GLUCOSE,RANDOM 174 MG/DL (74-106)
[2017-12-10 05:45] LABS: ALT (GPT) 19 U/L (12-78); AST (GOT) 10 U/L (15-37); GLOMERULAR FILTRATION RATE 46 ML/MIN (>89)
[2017-12-10 05:47] LABS: TOTAL PROTEIN 6.8 GM/DL (6.4-8.2)
[2017-12-10 05:48] LABS: ALKALINE PHOSPHATASE 62 U/L (45-117)
--- NOTE | 2017-12-10 07:17 | PD.CONS ---
[facility] Service Critical Care Medicine Consult Requested By Dr. Ureña Reason for Consult Severe sepsis requiring vasopressors Primary Care Physician Non-Staff History of Present Illness 72-year-old male. The admission 12/09/2017. Date of consultation 12/10. Past medical history include atrial fibrillation on apixaban, sciatica, coronary disease status post myocardial infarctions 5, hypertension, dyslipidemia, diabetes mellitus type 2 and obstructive sleep apnea requiring CPAP. History of CABG 2. Patient presents to [facility] on with a 3 days history of urinary retention. Documentation of prior attempts to self catheterize he is also been feeling bad, with decreased energy and chills. He came in to the emergency department and is found to have urinary retention, fever, and atrial fibrillation with RVR. Urine culture blood cultures have been obtained in the ER. Patient received multiple fluid boluses have been provided in the emergency department and are not providing much long- term benefit in regards to his blood pressure. Patient started on ceftriaxone and vancomycin is currently on a norepinephrine drip at 12 mcg/min. He will require central line placement for vasopressor support and just with antibiotic Review of Systems Constitutional: COMPLAINS OF: Fatigue, Fever, Weight loss, Chills, DENIES: Weight gain Endocrine: DENIES: Polydipsia, Polyuria Eyes: DENIES: Blurred vision Ears, nose, mouth, throat: DENIES: Tinnitus, Hearing loss Respiratory: DENIES: Cough Cardiovascular: DENIES: Chest pain, Palpitations Gastrointestinal: DENIES: Abdominal pain Genitourinary: COMPLAINS OF: Urinary frequency, Urinary incontinence, Urgency, Dysuria, DENIES: Testicular Pain Musculoskeletal: DENIES: Joint pain Integumentary: DENIES: Abnormal pigmentation Hematologic/lymphatic: DENIES: Bruising Immunologic/allergic: DENIES: Eczema Neurologic: DENIES: Abnormal gait Psychiatric: DENIES: Anxiety, Depression Past Family Social History Allergies: Coded Allergies: MRI PRECAUTION (Verified Allergy, Severe, DEFIBRILLATOR, 12/09/17) PACEMAKER DIFIBRILLATOR, 10/27/17 DML amitriptyline (Verified Allergy, Unknown, 12/09/17) indomethacin (Verified Allergy, Unknown, 12/09/17) meperidine (Verified Allergy, Unknown, 12/09/17) Past Medical History Atrial fibrillation Coronary artery disease history of myocardial infarction 5 Hypertension Dyslipidemia Diabetes mellitus type 2 SANTOS requiring CPAP Past Surgical History Coronary artery stent Right rotator cuff repair CABG 2 Bilateral total knee replacement Reported Medications Apixaban 2.5 mg p.o. twice daily Fenofibrate 145 mg p.o. every other day Lisinopril 2.5 mg p.o. daily Multivitamin 1 tablet p.o. daily Carvedilol 20 mg p.o. daily Furosemide 20 mg p.o. twice daily Enteric-coated aspirin 81 mg p.o. daily Active Ordered Medications Reviewed in EMR Family History Father and several first-degree relatives with coronary artery disease/GA Social History Denies tobacco, alcohol or illicit drug use Physical Exam Vital Signs Vital Signs Date Time Temp Pulse Resp B/P (MAP) Pulse Ox O2 Delivery O2 Flow Rate FiO2 12/10/17 06:01 112 19 99/73 (82) 98 12/10/17 06:00 118 12/10/17 06:00 118 99/73 12/10/17 05:31 106 15 85/65 (72) 97 12/10/17 05:16 108 15 97/67 (77) 97 12/10/17 05:01 110 16 93/68 (76) 96 12/10/17 04:46 106 27 85/64 (71) 98 12/10/17 04:31 106 19 95/64 (74) 97 12/10/17 04:16 114 22 98/66 (77) 97 12/10/17 04:01 97.8 110 19 101/72 (82) 97 12/10/17 04:00 121 12/10/17 03:46 114 18 97/65 (76) 98 12/10/17 03:31 112 18 98/67 (77) 97 12/10/17 03:01 112 20 102/68 (79) 97 12/10/17 02:46 114 17 92/66 (75) 98 12/10/17 02:31 104 16 86/68 (74) 98 12/10/17 02:22 124 95/65 12/10/17 02:01 112 18 100/68 (79) 96 12/10/17 02:00 103 12/10/17 01:46 126 24 95/84 (88) 97 12/10/17 01:31 116 18 97/71 (80) 97 12/10/17 01:16 114 17 87/65 (72) 96 12/10/17 01:01 112 19 87/74 (78) 97 12/10/17 01:01 112 19 87/74 (78) 97 12/10/17 00:46 122 26 86/69 (75) 96 12/10/17 00:46 122 26 86/69 (75) 96 12/10/17 00:31 118 27 90/67 (75) 96 12/10/17 00:31 118 27 90/67 (75) 96 12/10/17 00:16 134 29 99/81 (87) 93 12/10/17 00:16 134 29 99/81 (87) 93 12/10/17 00:15 126 35 92 12/10/17 00:01 124 22 78/56 (63) 96 12/10/17 00:01 99.1 124 22 78/56 (63) 96 12/10/17 00:00 124 21 96 12/10/17 00:00 116 12/09/17 23:31 122 21 89/63 (72) 95 12/09/17 23:16 116 24 81/62 (68) 96 12/09/17 23:01 116 21 83/62 (69) 96 12/09/17 22:31 134 30 113/68 (83) 12/09/17 22:16 108 21 88/59 (69) 95 12/09/17 22:01 110 26 77/59 (65) 95 12/09/17 22:00 123 12/09/17 21:46 126 21 76/50 (59) 94 12/09/17 21:31 120 21 77/59 (65) 94 12/09/17 21:01 126 23 82/72 (75) 96 12/09/17 21:01 96 Nasal Cannula 2.00 12/09/17 20:46 122 25 83/57 (66) 95 12/09/17 20:31 124 23 81/56 (64) 95 12/09/17 20:16 124 25 75/62 (66) 94 12/09/17 20:01 99.5 122 27 84/65 (71) 95 12/09/17 20:00 124 12/09/17 19:46 120 22 85/58 (67) 96 12/09/17 19:31 132 34 96/75 (82) 95 12/09/17 19:16 120 23 81/52 (62) 94 12/09/17 19:14 130 27 74/58 (63) 93 12/09/17 19:07 126 26 85/64 (71) 92 12/09/17 18:43 124 77/55 12/09/17 18:30 126 27 85/52 (63) 97 12/09/17 18:20 118 28 77/55 (62) 94 12/09/17 18:15 122 22 77/59 (65) 96 12/09/17 18:00 122 20 85/64 (71) 95 12/09/17 18:00 124 12/09/17 17:10 99.1 124 20 83/59 (67) 96 12/09/17 17:10 126 12/09/17 17:08 12/09/17 16:00 122 20 100/70 (80) 96 Nasal Cannula 2.00 12/09/17 15:34 129 20 85/48 (60) 98 Nasal Cannula 1.00 12/09/17 14:41 120 20 76/64 (68) 100 Nasal Cannula 1.00 12/09/17 13:29 99.9 122 20 95/47 (63) 96 12/09/17 13:03 113 20 84/67 (73) 94 12/09/17 12:18 131 20 76/57 (63) 94 12/09/17 12:17 95 12/09/17 11:26 99.9 140 18 91/46 (61) 93 Physical Exam GENERAL: 72-year-old male currently resting in bed in no acute distress SKIN: Warm and dry. No rash HEAD: Atraumatic. Normocephalic. EYES: Pupils equal and round. No scleral icterus. No injection or drainage. ENT: No nasal bleeding or discharge. Mucous membranes pink and moist. NECK: Trachea midline. No JVD. CARDIOVASCULAR: Tachycardic, IR. Intermittently paced. S1, S2. No S4. RESPIRATORY: No accessory muscle use. Clear to auscultation. Breath sounds equal bilaterally. GASTROINTESTINAL: Abdomen soft, non-tender, nondistended. Hepatic and splenic margins not palpable. MUSCULOSKELETAL: Extremities with trace bilateral lower extremity edema NEUROLOGICAL: Awake and alert. No obvious cranial nerve deficits. Motor grossly within normal limits. Five out of 5 muscle strength in the arms and legs. Normal speech. PSYCHIATRIC: Appropriate mood and affect; insight and judgment normal. Laboratory Laboratory Tests Test 12/09/17 11:45 12/09/17 12:20 12/09/17 13:10 12/09/17 17:10 White Blood Count 12.3 Red Blood Count 4.21 Hemoglobin 12.3 Hematocrit 36.9 Mean Corpuscular Volume 87.5 Mean Corpuscular Hemoglobin 29.1 Mean Corpuscular Hemoglobin Concent 33.2 Red Cell Distribution Width 16.8 Platelet Count 127 Mean Platelet Volume 10.2 Neutrophils (%) (Auto) 85.5 Lymphocytes (%) (Auto) 5.7 Monocytes (%) (Auto) 6.1 Eosinophils (%) (Auto) 0.0 Basophils (%) (Auto) 2.7 Neutrophils # (Auto) 10.6 Lymphocytes # (Auto) 0.7 Monocytes # (Auto) 0.7 Eosinophils # (Auto) 0.0 Basophils # (Auto) 0.3 CBC Comment AUTO DIFF Differential Total Cells Counted 100 Neutrophils % (Manual) 72 Band Neutrophils % 15 Lymphocytes % 5 Monocytes % 8 Neutrophils # (Manual) 10.7 Differential Comment FINAL DIFF MANUAL Platelet Estimate LOW Platelet Morphology Comment NORMAL Red Cell Morphology Comment NORMAL Prothrombin Time 17.4 Prothromb Time International Ratio 1.7 Activated Partial Thromboplast Time 30.8 Blood Urea Nitrogen 35 Creatinine 1.80 Random Glucose 103 Total Protein 7.4 Albumin 3.3 Calcium Level 9.2 Alkaline Phosphatase 74 Aspartate Amino Transf (AST/SGOT) 20 Alanine Aminotransferase (ALT/SGPT) 25 Total Bilirubin 2.4 Sodium Level 135 Potassium Level 4.2 Chloride Level 99 Carbon Dioxide Level 25.1 Anion Gap 11 Estimat Glomerular Filtration Rate 37 Troponin I 0.02 Lactic Acid Level 1.6 Urine Collection Type CLEAN CATCH Urine Color ORANGE Urine Turbidity TURBID Urine pH 5.0 Urine Specific [place] GREATER/EQUAL 1.030 Urine Protein 100 Urine Glucose (UA) NEG Urine Ketones TRACE Urine Occult Blood LARGE Urine Nitrite POS Urine Bilirubin MOD Urine Urobilinogen Urine Leukocyte Esterase TRACE Urine RBC 15-19 Urine WBC 9-14 Urine WBC Clumps FEW Urine Squamous Epithelial Cells 6-8 Urine Amorphous Sediment MOD Urine Bacteria FEW Urine Hyaline Casts 0-2 Microscopic Urinalysis Comment CULTURE INDICATED Urine Collection Time 1300 Nasal Screen MRSA (PCR) MRSA NOT DETECTED Test 12/09/17 17:40 12/10/17 05:00 Lactic Acid Level 1.6 White Blood Count 12.9 Red Blood Count 4.11 Hemoglobin 11.8 Hematocrit 35.8 Mean Corpuscular Volume 87.0 Mean Corpuscular Hemoglobin 28.7 Mean Corpuscular Hemoglobin Concent 33.0 Red Cell Distribution Width 17.1 Platelet Count 128 Mean Platelet Volume 9.8 Neutrophils (%) (Auto) 84.6 Lymphocytes (%) (Auto) 8.6 Monocytes (%) (Auto) 5.8 Eosinophils (%) (Auto) 0.2 Basophils (%) (Auto) 0.8 Neutrophils # (Auto) 11.0 Lymphocytes # (Auto) 1.1 Monocytes # (Auto) 0.7 Eosinophils # (Auto) 0.0 Basophils # (Auto) 0.1 CBC Comment DIFF FINAL Differential Comment Blood Urea Nitrogen 39 Creatinine 1.50 Random Glucose 174 Total Protein 6.8 Albumin 3.0 Calcium Level 8.6 Alkaline Phosphatase 62 Aspartate Amino Transf (AST/SGOT) 10 Alanine Aminotransferase (ALT/SGPT) 19 Total Bilirubin 2.0 Sodium Level 137 Potassium Level 3.8 Chloride Level 101 Carbon Dioxide Level 27.0 Anion Gap 9 Estimat Glomerular Filtration Rate 46 Date/Time Source Procedure Growth Status 12/09/17 12:20 Blood Peripheral Aerobic Blood Culture Pending Received 12/09/17 12:20 Blood Peripheral Anaerobic Blood Culture Pending Received 12/09/17 13:10 Urine Clean Catch Urine Culture Pending Received Result Diagram: 12/10/17 0500 12/10/17 0500 Imaging Last Impressions Chest X-Ray 12/09/17 1211 Signed Impressions: Service Date/Time: Saturday, December 09, 2017 12:22 - CONCLUSION: 1. Cardiomegaly without evidence of significant congestion or acute air space disease. 2. Status post open heart surgery. 3. Cardiac pacemaker. Fracisco Espinoza MD Septic Shock Reassessment Septic shock perfusion: reassessment completed Assessment and Plan Assessment and Plan Neuro/Psych: Acetaminophen 650 mg p.o. every 6 hours as needed fever Hydrocodone/acetaminophen 5/325 tablet every 4 hours as needed pain 1 through 5 Morphine sulfate 2 mg IV every 4 hours. Pain 6-10 CV: Atrial fibrillation with rapid ventricular response History of hypertension Dyslipidemia Coronary artery disease status post CABG 2 Placement of defibrillator Patient is currently on norepinephrine at 12 mg/min to maintain mean arterial pressure greater than or equal to [address] CVL and check CVP Limited 2D echocardiogram will be ordered to evaluate ejection fraction Holding lisinopril 2.5 mg p.o. daily light of hypotension Holding carvedilol 25 mg p.o. daily in light of hypotension Resume fenofibrate 145 mg p.o. every other day when clinically indicated Currently holding furosemide 20 mg twice daily Continue aspirin 81 mg p.o. daily Resp: Obstructive sleep apnea requiring CPAP Nasal cannula to maintain saturations greater than equal to 92% Incentive spirometry while awake Albuterol/ipratropium aerosols every 6 hours with albuterol aerosols every 2 hours. Dyspnea Follow-up chest x-ray in am. Chest x-ray admission revealed cardiomegaly. No focal infiltrates and/or effusions GI: Hypoalbuminemia Heart healthy/ADA diet Famotidine 20 mg daily for GI prophylaxis Docusate sodium 100 mg twice daily for bowel regimen : BPH? Placement of Rangel catheter if clinically indicated Start tamsulosin 0.4 mg p.o. daily once able to wean down vasopressors Endo: Diabetes mellitus type 2 Sliding scale insulin with Novulin R with Accu-Cheks before meals/at bedtime to maintain euglycemia/moderate regimen Check TSH Renal: Acute kidney injury Creatinine currently 1.5. Check urine electrolytes and eosinophils Continue gentle hydration Heme: Leukocytosis Normocytic anemia Thrombocytopenia Chronic apixaban use Monitor CBC daily. Follow trends Continue apixaban 2.5 mg p.o. twice daily ID: Severe sepsis with urinary tract infection Adjust antibiotics to cefepime and vancomycin. Discontinue ceftriaxone Pertinent cultures 12/09 -blood cultures 2 -pending 12/09 -urine culture -pending MSK: Sciatica PT evaluate and treat FEN: Replace electrolytes as clinically indicated Access -Utilize peripheral IV. We will place central line Prophylaxis -GI -famotidine -DVT -SCD/apixaban provides pharmacological prophylaxis Critical Care: The total critical care time was 35 minutes. Time to perform other separately billable procedures was not included in the critical care time. Code Status Full code Discussed Condition With Patient. FLIGHT AGENT. CARE plan discussed and all questions answered. Carlos Márquez MD Dec 10, 2017 07:17
[2017-12-10] MEDS ORDERED: MORPHINE SULFATE 4 MG/ML INJ IV PUSH PRN (08:00)
[2017-12-10] MEDS ORDERED: RESP: ALBUTEROL 2.5 MG/3 ML NEB (PRN) INH (08:00)
[2017-12-10] MEDS ORDERED: oxyCODONE/ACETAMINOPHEN 5 MG/325 MG TAB PO PRN (08:00)
[2017-12-10] MEDS ORDERED: ACETAMINOPHEN 325 MG TAB PO PRN (08:00)
[2017-12-10] MEDS ORDERED: SODIUM CHLORIDE 0.9% FLUSH 10 ML FLUSH IV FLUSH PRN (08:00)
[2017-12-10] MEDS: INSULIN ASPART SUPPLEMENTAL SCALE SQ SCH ×4 (08:00→19:53)
--- NOTE | 2017-12-10 08:02 | PD.PROCEDR ---
Central Line Procedure REASON FOR PROCEDURE Central venous access PROCEDURE PERFORMED Central line placement: Left IJ CVL CONSENT Informed consent for procedure was obtained. The risks and benefits of the procedure were discussed to include but limited to bleeding, clot formation, infection, and even . ANESTHESIA Local injection of 1% Lidocaine DESCRIPTION OF THE PROCEDURE The patient was placed in supine, mild Trendelenburg position. The area was exposed and cleansed with ChloraPrep, times two. Large sterile drape was used to cover the patient, with the site exposed, under sterile conditions including cap, face mask, sterile gown, and sterile gloves. On single attempt, the introducer needle was inserted with negative pressure in syringe and venous flash was obtained. The guide wire was then advanced without any restriction and the needle was removed. The dilator was used without any complications. Using Seldinger technique the antibiotic coated triple lumen catheter was advanced over the guide wire to a depth of 20 centimeters. The guide wire was removed. All ports were aspirated with dark venous blood return and flushed easily with sterile saline. All ports were capped. Antibiotic disc was placed around central line at puncture site. The central line was secured to the skin with a StatLock per [facility] policy. The area was bandaged with sterile see-through central line bandage. RADIOLOGICAL DATA Ultrasound guidance was used to locate left internal jugular vein. Doppler/ color flow was used to confirm venous flow. COMPLICATIONS: No apparent complications ESTIMATED BLOOD LOSS: Less than 1 cc. Carlos Márquez MD Dec 10, 2017 08:02
--- NOTE | 2017-12-10 08:17 | RADRPT ---
EXAM DATE/TIME: 12/10/2017 07:53 [place] COMPARISON: CHEST SINGLE AP, December 09, 2017, 12:22. INDICATIONS : Central line placement. MEDICAL HISTORY : None. SURGICAL HISTORY : Pacemaker. CABG. ENCOUNTER: Subsequent ACUITY: 4 - 6 days PAIN SCORE: 0/10 LOCATION: Left chest FINDINGS: Interval placement of left IJ central line with tip in the brachiocephalic SVC junction. There is no significant pneumothorax. Minimal left basilar airspace disease. Cardiomediastinal contours are stabl e. Remainder of exam is unchanged. CONCLUSION: 1. Left IJ central line with tip in the brachiocephalic SVC junction. No significant pneumothorax. 2. Minimal left lung base airspace disease, likely atelectasis. William Brar MD on December 10, 2017 at 8:14 Board Certified Radiologist. This report was verified electronically.
[2017-12-10] MEDS ORDERED: DIGOXIN 0.5 MG/2 ML VIAL IV PUSH ONE (08:30)
--- NOTE | 2017-12-10 08:37 | PD.CONS ---
HPI Consult Requested By Primary Care Physician Non-Staff History of Present Illness 72-year-old male with a past medical history of cardiomyopathy status post AICD/ pacer, NH 5, CABG 2, A. fib on Eliquis, SANTOS who presented for urinary retention. The patient presented with a three-day history of urinary retention and slightly pink urine. He is here visiting from [place] 3 months of the year and follows with cardiology up there. He denies any fevers. He was found to have urosepsis and is currently on norepinephrine drip to maintain BP, lisinopril and carvedilol have been held. Overnight the patient has had A. fib with RVR rate currently around 130. Creatinine has improved to 1.5 today. He denies any chest pain, shortness of breath, palpitations. (Mukesh Centeno) Review of Systems Negative except as stated in history of present illness (Mukesh Centeno) Past Family Social History Allergies: Coded Allergies: MRI PRECAUTION (Verified Allergy, Severe, DEFIBRILLATOR, 12/09/17) PACEMAKER DIFIBRILLATOR, 10/27/17 DML amitriptyline (Verified Allergy, Unknown, 12/09/17) indomethacin (Verified Allergy, Unknown, 12/09/17) meperidine (Verified Allergy, Unknown, 12/09/17) Past Medical History Atrial fibrillation Coronary artery disease with history of NH 5 Hypertension Sleep apnea Past Surgical History Coronary artery bypass grafting 2 PCI with 7 total stents Rotator cuff repair Reported Medications Reported Meds & Active Scripts Active Reported Lasix (Furosemide) 20 Mg Tab Unknown Dose PO BID Ecotrin Low Strength (Aspirin) 81 Mg Tabdr 81 Mg PO DAILY Eliquis (Apixaban) 2.5 Mg Tab 2.5 Mg PO BID Lisinopril 2.5 Mg Tab 2.5 Mg PO DAILY Coreg (Carvedilol) 25 Mg Tab 25 Mg PO DAILY Centrum (Multiple Vitamins W/ Minerals) 1 Chew 1 Tab CHEW DAILY Active Ordered Medications Current Medications Medications (Trade) Dose Ordered Sig/Ruperto Route Start Time Stop Time Status Last Admin (NS Flush) 2 ml UNSCH PRN IV FLUSH 12/09/17 15:30 (NS Flush) 2 ml BID IV FLUSH 12/09/17 21:00 12/09/17 20:36 (Zofran Inj) 4 mg Q6H PRN IVP 12/09/17 15:30 (Narcan Inj) 0.4 mg UNSCH PRN IV PUSH 12/09/17 15:30 (Pepcid Inj) 20 mg Q12HR PRN IV PUSH 12/09/17 21:00 Miscellaneous Information 1 Q361D XX 12/09/17 15:30 12/09/17 15:30 (Chlorhexidine 2% Cloth) 3 pack Taper DAILY@04 TOP 12/10/17 04:00 12/06/18 03:59 12/10/17 04:00 (Chlorhexidine 2% Cloth) 3 pack UNSCH PRN TOP 12/09/17 15:30 Norepinephrine Bitartrate 250 ml @ 7.5 mls/hr TITRATE PRN IV 12/09/17 15:30 12/10/17 02:22 (Brethine Inj) 1 mg UNSCH PRN SQ 12/09/17 15:30 Pharmacy Profile Note 0 ml @ 0 mls/hr UNSCH OTHER 12/09/17 16:30 (D50w (Vial) Inj) 50 ml UNSCH PRN IV PUSH 12/09/17 16:30 (Glucagon Inj) 1 mg UNSCH PRN OTHER 12/09/17 16:30 (NovoLOG SUPPLEMENTAL SCALE) 1 ACHS SLIDING SCALE SQ 12/09/17 17:00 12/09/17 20:37 (Eliquis) 2.5 mg BID PO 12/09/17 21:00 12/09/17 20:36 (Ecotrin Ec) 81 mg DAILY PO 12/10/17 09:00 Vancomycin HCl 1700 mg/Sodium Chloride 517 ml @ 250 mls/hr Q18H IV 12/09/17 18:00 12/09/17 17:41 Miscellaneous Information SPECIFIC LAB TO BE DRAWN:[facility] TROUGH DATE TO... ONCE ONCE .XX 12/11/17 23:45 12/11/17 23:46 (Colace) 100 mg BID PO 12/10/17 09:00 (NS Flush) DAILY IV FLUSH 12/10/17 09:00 (NS Flush) UNSCH PRN IV FLUSH 12/10/17 08:00 (Pepcid) 20 mg DAILY PO 12/10/17 09:00 Cefepime HCl 1000 mg/Sodium Chloride 100 ml @ 200 mls/hr Q12H IV 12/10/17 08:00 Sodium Chloride 1,000 ml @ 84 mls/hr [id number] IV 12/10/17 07:54 (NS Flush) 2 ml UNSCH PRN IV FLUSH 12/10/17 08:00 (NS Flush) 2 ml BID IV FLUSH 12/10/17 09:00 (Tylenol) 650 mg Q6H PRN PO 12/10/17 08:00 (Percocet 5-325 Mg) 1 tab Q4H PRN PO 12/10/17 08:00 (Morphine Inj) 2 mg Q2H PRN IV PUSH 12/10/17 08:00 (Duoneb Neb) 1 ampule Q6HR NEB INH 12/10/17 10:00 (Albuterol Neb) 2.5 mg Q2HR NEB PRN INH 12/10/17 08:00 Vasopressin 40 units/Dextrose 100 ml @ 6 mls/hr [id number] IV 12/10/17 09:00 Family History Coronary artery disease in patient's father and numerous males on father's side of the family Social History No smoking, no alcohol, no illicit drug abuse (Mukesh Centeno) Physical Exam Vital Signs Vital Signs Date Time Temp Pulse Resp B/P (MAP) Pulse Ox O2 Delivery O2 Flow Rate FiO2 12/10/17 06:01 112 19 99/73 (82) 98 12/10/17 06:00 118 12/10/17 06:00 118 99/73 12/10/17 05:31 106 15 85/65 (72) 97 12/10/17 05:16 108 15 97/67 (77) 97 12/10/17 05:01 110 16 93/68 (76) 96 12/10/17 04:46 106 27 85/64 (71) 98 12/10/17 04:31 106 19 95/64 (74) 97 12/10/17 04:16 114 22 98/66 (77) 97 12/10/17 04:01 97.8 110 19 101/72 (82) 97 12/10/17 04:00 121 12/10/17 03:46 114 18 97/65 (76) 98 12/10/17 03:31 112 18 98/67 (77) 97 12/10/17 03:01 112 20 102/68 (79) 97 12/10/17 02:46 114 17 92/66 (75) 98 12/10/17 02:31 104 16 86/68 (74) 98 12/10/17 02:22 124 95/65 12/10/17 02:01 112 18 100/68 (79) 96 12/10/17 02:00 103 12/10/17 01:46 126 24 95/84 (88) 97 12/10/17 01:31 116 18 97/71 (80) 97 12/10/17 01:16 114 17 87/65 (72) 96 12/10/17 01:01 112 19 87/74 (78) 97 12/10/17 01:01 112 19 87/74 (78) 97 12/10/17 00:46 122 26 86/69 (75) 96 12/10/17 00:46 122 26 86/69 (75) 96 12/10/17 00:31 118 27 90/67 (75) 96 12/10/17 00:31 118 27 90/67 (75) 96 12/10/17 00:16 134 29 99/81 (87) 93 12/10/17 00:16 134 29 99/81 (87) 93 12/10/17 00:15 126 35 92 12/10/17 00:01 124 22 78/56 (63) 96 12/10/17 00:01 99.1 124 22 78/56 (63) 96 12/10/17 00:00 124 21 96 12/10/17 00:00 116 12/09/17 23:31 122 21 89/63 (72) 95 12/09/17 23:16 116 24 81/62 (68) 96 12/09/17 23:01 116 21 83/62 (69) 96 12/09/17 22:31 134 30 113/68 (83) 12/09/17 22:16 108 21 88/59 (69) 95 12/09/17 22:01 110 26 77/59 (65) 95 12/09/17 22:00 123 12/09/17 21:46 126 21 76/50 (59) 94 12/09/17 21:31 120 21 77/59 (65) 94 12/09/17 21:01 126 23 82/72 (75) 96 12/09/17 21:01 96 Nasal Cannula 2.00 12/09/17 20:46 122 25 83/57 (66) 95 12/09/17 20:31 124 23 81/56 (64) 95 12/09/17 20:16 124 25 75/62 (66) 94 12/09/17 20:01 99.5 122 27 84/65 (71) 95 12/09/17 20:00 124 12/09/17 19:46 120 22 85/58 (67) 96 12/09/17 19:31 132 34 96/75 (82) 95 12/09/17 19:16 120 23 81/52 (62) 94 12/09/17 19:14 130 27 74/58 (63) 93 12/09/17 19:07 126 26 85/64 (71) 92 12/09/17 18:43 124 77/55 12/09/17 18:30 126 27 85/52 (63) 97 12/09/17 18:20 118 28 77/55 (62) 94 12/09/17 18:15 122 22 77/59 (65) 96 12/09/17 18:00 122 20 85/64 (71) 95 12/09/17 18:00 124 12/09/17 17:10 99.1 124 20 83/59 (67) 96 12/09/17 17:10 126 12/09/17 17:08 12/09/17 16:00 122 20 100/70 (80) 96 Nasal Cannula 2.00 12/09/17 15:34 129 20 85/48 (60) 98 Nasal Cannula 1.00 12/09/17 14:41 120 20 76/64 (68) 100 Nasal Cannula 1.00 12/09/17 13:29 99.9 122 20 95/47 (63) 96 12/09/17 13:03 113 20 84/67 (73) 94 12/09/17 12:18 131 20 76/57 (63) 94 12/09/17 12:17 95 12/09/17 11:26 99.9 140 18 91/46 (61) 93 Physical Exam GENERAL: Well-developed well-nourished. In no acute distress. NECK: No carotid bruits. No JVD. CARDIOVASCULAR: Tachycardic irregular rate and rhythm. No murmur appreciated. RESPIRATORY: No accessory muscle use. Clear to auscultation. Breath sounds equal bilaterally. MUSCULOSKELETAL: No clubbing or cyanosis. No edema. NEUROLOGICAL: Awake and alert. Normal speech. Laboratory Laboratory Tests Test 12/09/17 11:45 12/09/17 12:20 12/09/17 13:10 12/09/17 17:10 White Blood Count 12.3 Red Blood Count 4.21 Hemoglobin 12.3 Hematocrit 36.9 Mean Corpuscular Volume 87.5 Mean Corpuscular Hemoglobin 29.1 Mean Corpuscular Hemoglobin Concent 33.2 Red Cell Distribution Width 16.8 Platelet Count 127 Mean Platelet Volume 10.2 Neutrophils (%) (Auto) 85.5 Lymphocytes (%) (Auto) 5.7 Monocytes (%) (Auto) 6.1 Eosinophils (%) (Auto) 0.0 Basophils (%) (Auto) 2.7 Neutrophils # (Auto) 10.6 Lymphocytes # (Auto) 0.7 Monocytes # (Auto) 0.7 Eosinophils # (Auto) 0.0 Basophils # (Auto) 0.3 CBC Comment AUTO DIFF Differential Total Cells Counted 100 Neutrophils % (Manual) 72 Band Neutrophils % 15 Lymphocytes % 5 Monocytes % 8 Neutrophils # (Manual) 10.7 Differential Comment FINAL DIFF MANUAL Platelet Estimate LOW Platelet Morphology Comment NORMAL Red Cell Morphology Comment NORMAL Prothrombin Time 17.4 Prothromb Time International Ratio 1.7 Activated Partial Thromboplast Time 30.8 Blood Urea Nitrogen 35 Creatinine 1.80 Random Glucose 103 Total Protein 7.4 Albumin 3.3 Calcium Level 9.2 Alkaline Phosphatase 74 Aspartate Amino Transf (AST/SGOT) 20 Alanine Aminotransferase (ALT/SGPT) 25 Total Bilirubin 2.4 Sodium Level 135 Potassium Level 4.2 Chloride Level 99 Carbon Dioxide Level 25.1 Anion Gap 11 Estimat Glomerular Filtration Rate 37 Troponin I 0.02 Lactic Acid Level 1.6 Urine Collection Type CLEAN CATCH Urine Color ORANGE Urine Turbidity TURBID Urine pH 5.0 Urine Specific [place] GREATER/EQUAL 1.030 Urine Protein 100 Urine Glucose (UA) NEG Urine Ketones TRACE Urine Occult Blood LARGE Urine Nitrite POS Urine Bilirubin MOD Urine Urobilinogen Urine Leukocyte Esterase TRACE Urine RBC 15-19 Urine WBC 9-14 Urine WBC Clumps FEW Urine Squamous Epithelial Cells 6-8 Urine Amorphous Sediment MOD Urine Bacteria FEW Urine Hyaline Casts 0-2 Microscopic Urinalysis Comment CULTURE INDICATED Urine Collection Time 1300 Nasal Screen MRSA (PCR) MRSA NOT DETECTED Test 12/09/17 17:40 12/10/17 05:00 Lactic Acid Level 1.6 White Blood Count 12.9 Red Blood Count 4.11 Hemoglobin 11.8 Hematocrit 35.8 Mean Corpuscular Volume 87.0 Mean Corpuscular Hemoglobin 28.7 Mean Corpuscular Hemoglobin Concent 33.0 Red Cell Distribution Width 17.1 Platelet Count 128 Mean Platelet Volume 9.8 Neutrophils (%) (Auto) 84.6 Lymphocytes (%) (Auto) 8.6 Monocytes (%) (Auto) 5.8 Eosinophils (%) (Auto) 0.2 Basophils (%) (Auto) 0.8 Neutrophils # (Auto) 11.0 Lymphocytes # (Auto) 1.1 Monocytes # (Auto) 0.7 Eosinophils # (Auto) 0.0 Basophils # (Auto) 0.1 CBC Comment DIFF FINAL Differential Comment Blood Urea Nitrogen 39 Creatinine 1.50 Random Glucose 174 Total Protein 6.8 Albumin 3.0 Calcium Level 8.6 Alkaline Phosphatase 62 Aspartate Amino Transf (AST/SGOT) 10 Alanine Aminotransferase (ALT/SGPT) 19 Total Bilirubin 2.0 Sodium Level 137 Potassium Level 3.8 Chloride Level 101 Carbon Dioxide Level 27.0 Anion Gap 9 Estimat Glomerular Filtration Rate 46 Date/Time Source Procedure Growth Status 12/09/17 12:20 Blood Peripheral Aerobic Blood Culture Pending Received 12/09/17 12:20 Blood Peripheral Anaerobic Blood Culture Pending Received 12/09/17 13:10 Urine Clean Catch Urine Culture Pending Received (Mukesh Centeno) Result Diagram: 12/10/17 0500 12/10/17 0500 Imaging Last Impressions Chest X-Ray 12/10/17 0748 Signed Impressions: Service Date/Time: Sunday, December 10, 2017 07:53 - CONCLUSION: 1. Left IJ central line with tip in the brachiocephalic SVC junction. No significant pneumothorax. 2. Minimal left lung base airspace disease, likely atelectasis. William Brar MD (Mukesh Centeno) Assessment and Plan Assessment and Plan 72-year-old male with a past medical history of cardiomyopathy status post AICD/ pacer, NH 5, CABG 2, A. fib on Eliquis, SANTOS admitted for urosepsis, consulted for A. fib with RVR A. fib with RVR: Give IV digoxin 1. Continue Eliquis for anticoagulation. Cardiomyopathy: Chronic, status post AICD/pacemaker. No evidence of CHF. Lisinopril and carvedilol are on hold for hypotension. CAD: Chronic, currently stable. Continue aspirin. Urosepsis: Management per primary team and critical care. Currently on norepinephrine drip and IV antibiotics. Discussed Condition With Patient with RN at bedside, Dr. Salazar (Mukesh Centeno) Assessment and Plan RVR due to increased adrenergic tone digoxin PRN for rate control due to hypotension follow digoxin level for dosing if BP allows, consider low dose cardizem gtt/PO I suspect RVR will resolve when urosepsis resolves call with further questions will sign off (Roscoe Salazar MD) Mukesh Centeno Dec 10, 2017 08:37 Roscoe Salazar MD Dec 10, 2017 17:56
[2017-12-10] MEDS: CEFEPIME INJ 1,000 MG in SODIUM CHLORIDE 0.9% INJ 100 ML IV SCH ×2 (08:42→19:42)
[2017-12-10] MEDS: FAMOTIDINE 20 MG TAB PO SCH (08:44)
[2017-12-10] MEDS: APIXABAN 2.5 MG TABLET PO SCH ×2 (08:45→19:40)
[2017-12-10] MEDS: ASPIRIN EC 81 MG TABEC PO SCH (08:45)
[2017-12-10] MEDS: DOCUSATE SODIUM 100 MG CAP PO SCH ×3 (08:45→19:53)
[2017-12-10] MEDS: SODIUM CHLORIDE 0.9% FLUSH 10 ML FLUSH IV FLUSH SCH ×5 (08:45→19:42)
[2017-12-10] MEDS: SODIUM CHLOR 0.9% 1000 ML INJ 1,000 ML IV SCH ×2 (09:29→19:41)
[2017-12-10] MEDS: RESP: ALBUTEROL 2.5 MG/IPRATROPIUM 0.5 MG NEB (SCH) INH ×3 (10:00→20:39)
[2017-12-10 10:18] LABS: INTERNATIONAL NORMALIZED RATIO 1.8 RATIO; MAGNESIUM 1.8 MG/DL (1.5-2.5); PROTHROMBIN TIME - PATIENT 18.3 SEC (9.8-11.6)
[2017-12-10] MEDS: VASOPRESSIN INJ 40 UNITS in DEXTROSE 5% IN WATER 100ML INJ 98 ML IV SCH ×2 (10:19)
[2017-12-10 10:21] LABS: PHOSPHORUS 2.6 MG/DL (2.5-4.9)
[2017-12-10 10:26] LABS: TROPONIN I 0.02 NG/ML (0.02-0.05)
[2017-12-10] MEDS ORDERED: POTASSIUM CHLORIDE 20 MEQ CONTROLLED RELEASE TAB PO ONE (11:00)
[2017-12-10] MEDS ORDERED: cefTRIAXone INJ 1,000 MG in SODIUM CHLORIDE 0.9% INJ 100 ML IV SCH (12:00)
[2017-12-10] MEDS: MAGNESIUM SULFATE 1 GM PREMIX 100 ML IV SCH ×2 (12:03→13:12)
--- NOTE | 2017-12-10 12:26 | RADRPT ---
EXAM DATE/TIME: 12/10/2017 10:39 [facility] COMPARISON: No previous studies available for comparison. INDICATIONS : Increased BUN/Creatinine. MEDICAL HISTORY : Hypercholesterolemia. Hypertension. Atrial fibrillation. Diabetes. SURGICAL HISTORY : Pacemaker. Coronary stent. Cardiac catheterization. Double bypass. Right rotator cuff. Bilateral knee arthroscopy. ENCOUNTER: Initial ACUITY: 1 day PAIN SCORE: 0/10 LOCATION: Bilateral flank MEASUREMENTS: RIGHT KIDNEY: 11.9 x 7.2 x 4.9 cm LEFT KIDNEY: 11.5 x 6.4 x 5.4 cm FINDINGS: No renal mass or hydronephrosis. No perinephric fluid. There is a small moderate free fluid around th e liver. Bladder decompressed by Rangel. CONCLUSION: 1. No renal mass or hydronephrosis. Mild ascites. Bladder decompressed by Rangel. Ignacio Lopez MD on December 10, 2017 at 12:24 Board Certified Radiologist. This report was verified electronically.
--- NOTE | 2017-12-10 12:36 | ECHRPT ---
Indication: ATRIAL FIB CONCLUSIONS The left ventricular systolic function is severely reduced with an estimated ejection fraction less than 20%. Moderately dilated left ventricle. Wall thickness is normal. There is global left ventricular dysfunction. A pacemaker wire is noted. Obfi-[id number] mitral valve regurgitation. Mitral annular calcification is present. Diffuse calcification of the aortic valve. Trace aortic valve regurgitation. There is trace tricuspid valve regurgitation. The estimated pulmonary arterial pressure is 48.2 mmHg. Mild pulmonary valve regurgitation. BP: 118 / 78 HR: Rhythm: Atrial fibrillation MEASUREMENTS (Male / Female) Normal Values Technical Quality:Good 2D ECHO LV Diastolic Diameter PLAX 6.7 cm 4.2 - 5.9 / 3.9 - 5.3 cm LV Systolic Diameter PLAX 6.3 cm IVS Diastolic Thickness 0.9 cm 0.6 - 1.0 / 0.6 - 0.9 cm LVPW Diastolic Thickness 0.9 cm 0.6 - 1.0 / 0.6 - 0.9 cm LV Relative Wall Thickness 0.3 RV Internal Dim ED PLAX 2.8 cm LVOT Diameter 1.9 cm LA Systolic Diameter LX 5.6 cm 3.0 - 4.0 / 2.7 - 3.8 cm LV Ejection Fraction MOD 4C 15.9 % LV Ejection Fraction 4C AL 14.5 % M-MODE Aortic Root Diameter MM 3.3 cm LA Systolic Diameter MM 5.6 cm LA Ao Ratio MM 1.7 AV Cusp Separation MM 1.0 cm DOPPLER AV Peak Velocity 169.0 cm/s AV Peak Gradient 11.4 mmHg AV Mean Gradient 8.0 mmHg AV Velocity Time Integral 23.6 cm AI Peak Velocity 316.5 cm/s AI Peak Gradient 40.1 mmHg AI Pressure Half Time 769.0 ms LVOT Peak Velocity 66.1 cm/s LVOT Peak Gradient 1.7 mmHg AV Area Cont Eq pk 1.1 cm MV Peak Velocity 132.0 cm/s MV Peak Gradient 7.0 mmHg MV Mean Velocity 75.9 cm/s MV Mean Gradient 3.0 mmHg MV Area PHT 9.2 cm TR Peak Velocity 309.0 cm/s TR Peak Gradient 38.2 mmHg Right Atrial Pressure 10.0 mmHg Pulmonary Artery Systolic Pressu 48.2 mmHg Right Ventricular Systolic Press 48.2 mmHg PV Peak Velocity 58.4 cm/s PV Peak Gradient 1.4 mmHg FINDINGS LEFT VENTRICLE The left ventricular systolic function is severely reduced with an estimated ejection fraction less than 20%. Moderately dilated left ventricle. Wall thickness is normal. There is global left ventricular dysfunction. RIGHT VENTRICLE A pacemaker wire is noted. LEFT ATRIUM The left atrial size is normal. RIGHT ATRIUM The right atrial size is normal. ATRIAL SEPTUM Normal atrial septal thickness without atrial level shunting by limited color doppler interrogation. AORTA The aortic root and proximal ascending aorta are normal in size on limited imaging. MITRAL VALVE Structurally normal mitral valve. Uhjk-qk-kuinfjse mitral valve regurgitation. Mitral annular calcification is present. AORTIC VALVE Trileaflet aortic valve. Diffuse calcification of the aortic valve. Trace aortic valve regurgitation. TRICUSPID VALVE Structurally normal tricuspid valve. There is trace tricuspid valve regurgitation. The estimated pulmonary arterial pressure is 48.2 mmHg. PULMONARY VALVE Mild pulmonary valve regurgitation. VESSELS The inferior vena cava is normal in size. PERICARDIUM No pericardial effusion. Roscoe Salazar MD, FACC (Electronically Signed) Final Date:10 December 2017 12:35
[2017-12-10] MEDS ORDERED: PHENAZOPYRIDINE HCL 100 MG TAB PO ONE (13:00)
[2017-12-10 13:11] LABS: CREATININE, RANDOM URINE 198.6 MG/DL
[2017-12-10] MEDS: VANCOMYCIN INJ 1,700 MG in SODIUM CHLORID 0.9% 500 ML INJ 500 ML IV SCH (13:12)
--- NOTE | 2017-12-10 13:53 | HHI.PR ---
Subjective Remarks Pressures have stabilized with levo fed. Patient's primary complaint today is dysuria. He remains tachycardic but without symptoms and currently would not tolerate any medications which would suppress blood pressure further. He is not a good candidate for digoxin. Objective Vital Signs Date Time Temp Pulse Resp B/P (MAP) Pulse Ox O2 Delivery O2 Flow Rate FiO2 12/10/17 13:00 107 104/69 12/10/17 12:00 120 12/10/17 12:00 98.4 116 29 107/79 (88) 97 12/10/17 11:00 122 27 109/80 (90) 97 12/10/17 11:00 122 12/10/17 10:19 128 118/78 12/10/17 10:00 116 12/10/17 10:00 118 20 98/81 (87) 97 12/10/17 09:36 96 Nasal Cannula 2.00 12/10/17 09:28 128 99/64 12/10/17 09:00 128 20 110/78 (89) 98 12/10/17 09:00 130 12/10/17 08:00 98.0 134 33 133/82 (99) 12/10/17 08:00 126 12/10/17 07:00 122 12/10/17 07:00 118 26 96/74 (81) 97 12/10/17 06:01 112 19 99/73 (82) 98 12/10/17 06:00 118 12/10/17 06:00 118 99/73 12/10/17 05:31 106 15 85/65 (72) 97 12/10/17 05:16 108 15 97/67 (77) 97 12/10/17 05:01 110 16 93/68 (76) 96 12/10/17 04:46 106 27 85/64 (71) 98 12/10/17 04:31 106 19 95/64 (74) 97 12/10/17 04:16 114 22 98/66 (77) 97 12/10/17 04:01 97.8 110 19 101/72 (82) 97 12/10/17 04:00 121 12/10/17 03:46 114 18 97/65 (76) 98 12/10/17 03:31 112 18 98/67 (77) 97 12/10/17 03:01 112 20 102/68 (79) 97 12/10/17 02:46 114 17 92/66 (75) 98 12/10/17 02:31 104 16 86/68 (74) 98 12/10/17 02:22 124 95/65 12/10/17 02:01 112 18 100/68 (79) 96 12/10/17 02:00 103 12/10/17 01:46 126 24 95/84 (88) 97 12/10/17 01:31 116 18 97/71 (80) 97 12/10/17 01:16 114 17 87/65 (72) 96 12/10/17 01:01 112 19 87/74 (78) 97 12/10/17 01:01 112 19 87/74 (78) 97 12/10/17 00:46 122 26 86/69 (75) 96 12/10/17 00:46 122 26 86/69 (75) 96 12/10/17 00:31 118 27 90/67 (75) 96 12/10/17 00:31 118 27 90/67 (75) 96 12/10/17 00:16 134 29 99/81 (87) 93 12/10/17 00:16 134 29 99/81 (87) 93 12/10/17 00:15 126 35 92 12/10/17 00:01 124 22 78/56 (63) 96 12/10/17 00:01 99.1 124 22 78/56 (63) 96 12/10/17 00:00 124 21 96 12/10/17 00:00 116 12/09/17 23:31 122 21 89/63 (72) 95 12/09/17 23:16 116 24 81/62 (68) 96 12/09/17 23:01 116 21 83/62 (69) 96 12/09/17 22:31 134 30 113/68 (83) 12/09/17 22:16 108 21 88/59 (69) 95 12/09/17 22:01 110 26 77/59 (65) 95 12/09/17 22:00 123 12/09/17 21:46 126 21 76/50 (59) 94 12/09/17 21:31 120 21 77/59 (65) 94 12/09/17 21:01 126 23 82/72 (75) 96 12/09/17 21:01 96 Nasal Cannula 2.00 12/09/17 20:46 122 25 83/57 (66) 95 12/09/17 20:31 124 23 81/56 (64) 95 12/09/17 20:16 124 25 75/62 (66) 94 12/09/17 20:01 99.5 122 27 84/65 (71) 95 12/09/17 20:00 124 12/09/17 19:46 120 22 85/58 (67) 96 12/09/17 19:31 132 34 96/75 (82) 95 12/09/17 19:16 120 23 81/52 (62) 94 12/09/17 19:14 130 27 74/58 (63) 93 12/09/17 19:07 126 26 85/64 (71) 92 12/09/17 18:43 124 77/55 12/09/17 18:30 126 27 85/52 (63) 97 12/09/17 18:20 118 28 77/55 (62) 94 12/09/17 18:15 122 22 77/59 (65) 96 12/09/17 18:00 122 20 85/64 (71) 95 12/09/17 18:00 124 12/09/17 17:10 99.1 124 20 83/59 (67) 96 12/09/17 17:10 126 12/09/17 17:08 12/09/17 16:00 122 20 100/70 (80) 96 Nasal Cannula 2.00 12/09/17 15:34 129 20 85/48 (60) 98 Nasal Cannula 1.00 12/09/17 14:41 120 20 76/64 (68) 100 Nasal Cannula 1.00 I/O 12/09/17 12/09/17 12/09/17 12/10/17 12/10/17 12/10/17 07:00 15:00 23:00 07:00 15:00 23:00 Intake Total 490 ml 695 ml 450 ml Output Total 500 ml Balance 490 ml 195 ml 450 ml Intake Oral 240 ml 240 ml IV Total 250 ml 455 ml 450 ml Output Urine Total 500 ml # Bowel Movements 1 Result Diagram: 12/10/17 0500 12/10/17 0500 Objective Remarks GENERAL: NAD, A&Ox3 HEAD: Normocephalic. NECK: Supple, trachea midline. No lymphadenopathy. EYES: No scleral icterus. No injection or drainage. CARDIOVASCULAR: Tachycardic rate and irregularly irregular rhythm without murmurs, gallops, or rubs. RESPIRATORY: Breath sounds equal bilaterally. No accessory muscle use. GASTROINTESTINAL: Abdomen soft, non-tender, nondistended. MUSCULOSKELETAL: No cyanosis, or edema. SKIN: Warm and dry. NEURO: No focal neurological deficitis. A/P Problem List: (1) Septic shock ICD Code: A41.9 - Sepsis, unspecified organism; R65.21 - Severe sepsis with septic shock (2) Afib ICD Code: I48.91 - Unspecified atrial fibrillation Status: Acute (3) Hypotension ICD Code: I95.9 - Hypotension, unspecified Status: Acute (4) UTI (urinary tract infection) ICD Code: N39.0 - Urinary tract infection, site not specified Status: Acute (5) Tachycardia ICD Code: R00.0 - Tachycardia, unspecified Status: Acute (6) Leukocytosis ICD Code: D72.829 - Elevated white blood cell count, unspecified Status: Acute Assessment and Plan 72-year-old male admitted secondary to septic shock related to urinary tract infection Septic shock Continue IV Levophed Continue to follow in ICU Treatment infections as below Follow blood cultures Urinary tract infection Rocephin Vancomycin Follow urine cultures A. fib RVR RVR may be related to tachycardia from sepsis Patient is a poor candidate for beta owen or diltiazem IV right now due to hypotension Monitor on telemetry for now Treat infection Consider amiodarone if needed Diabetes mellitus type 2 Follow blood sugars Insulin sliding scale Diabetic diet Hyperlipidemia Continue present treatment Follow as an outpatient Hx of HTN Hold BP treatments for now Follow BP Old myocardial infarction CAD Asymptomatic Follow clinically No change to baseline management planned at this point Problem Qualifiers (1) Afib: Qualified Codes: I48.1 - Persistent atrial fibrillation (2) Hypotension: Qualified Codes: I95.9 - Hypotension, unspecified (3) UTI (urinary tract infection): Qualified Codes: N39.0 - Urinary tract infection, site not specified; R31.9 - Hematuria, unspecified (4) Leukocytosis: Qualified Codes: D72.829 - Elevated white blood cell count, unspecified Hector Ureña MD Dec 10, 2017 13:53
[2017-12-10] MEDS ORDERED: DIGOXIN 0.5 MG/2 ML VIAL IVS ONE (18:00)
[2017-12-10] MEDS: PHENAZOPYRIDINE HCL 100 MG TAB PO SCH (19:40)
--- NOTE | 2017-12-10 20:23 | PD.CONS ---
History of Present Illness Service Infectious disease Consult Requested By Dr Hector Ureña Reason for Consult Urosepsis Primary Care Physician Non-Staff Diagnoses: (1) UTI (urinary tract infection) (2) Septic shock (3) Afib History of Present Illness 72 ? M with no past h/o UTI or prostate problems- is visiting here from [place] and says he started feeling bad on Sunday with dysuria and incontinence and so came to hosp - found to be in septic shock with hypotension and fast HR - feels better tooday though still with some dysuria and bladder cramps. Review of Systems Constitutional: COMPLAINS OF: Fatigue, Fever, Chills Endocrine: COMPLAINS OF: Polyuria, DENIES: Heat/cold intolerance Eyes: DENIES: Diplopia, Eye inflammation Ears, nose, mouth, throat: DENIES: Vertigo, Nasal discharge Respiratory: DENIES: Cough, Snoring, Wheezing, Hemoptysis Cardiovascular: DENIES: Dyspnea on Exertion, Lower Extremity Edema, Orthopnea Gastrointestinal: COMPLAINS OF: Abdominal pain, DENIES: Diarrhea, Nausea, Vomiting Genitourinary: COMPLAINS OF: Urinary frequency, Urinary incontinence, Urgency, Hematuria, Dysuria Musculoskeletal: DENIES: Muscle aches, Stiffness Integumentary: DENIES: Abnormal pigmentation, Pruritus Hematologic/lymphatic: DENIES: Lymphadenopathy Neurologic: DENIES: Abnormal gait, Headache, Localized weakness Psychiatric: DENIES: Confusion, Mood changes Past Family Social History Allergies: Coded Allergies: MRI PRECAUTION (Verified Allergy, Severe, DEFIBRILLATOR, 12/09/17) PACEMAKER DIFIBRILLATOR, 10/27/17 DML amitriptyline (Verified Allergy, Unknown, 12/09/17) indomethacin (Verified Allergy, Unknown, 12/09/17) meperidine (Verified Allergy, Unknown, 12/09/17) Past Medical History Coronary artery disease Diabetes mellitus type 2 Hypertension Hyperlipidemia Atrial fibrillation Old myocardial infarction 5 Past Surgical History CABG 2 Defibrillator placement Bilateral knee surgeries Right rotator cuff surgery Coronary stents Active Ordered Medications Cefepime, Vancomycin Family History Coronary artery disease in patient's father and numerous males on father's side of the family Social History - lives with his No h/o smoking Lives in [place] - here for the winter months. Physical Exam Vital Signs Vital Signs Date Time Temp Pulse Resp B/P (MAP) Pulse Ox O2 Delivery O2 Flow Rate FiO2 12/10/17 18:00 138 12/10/17 18:00 138 39 110/81 (91) 90 12/10/17 17:17 118 107/70 12/10/17 17:16 117 107/70 12/10/17 17:00 126 23 116/81 (93) 95 12/10/17 16:26 118 108/90 12/10/17 16:00 118 12/10/17 16:00 98.2 114 22 111/78 (89) 97 12/10/17 15:00 124 12/10/17 15:00 118 29 119/56 (77) 98 12/10/17 14:30 104 99/75 12/10/17 14:00 106 22 92/76 (81) 98 12/10/17 14:00 108 12/10/17 13:00 112 12/10/17 13:00 118 22 103/76 (85) 98 12/10/17 13:00 107 104/69 12/10/17 13:00 118 103/76 (85) 12/10/17 12:00 120 12/10/17 12:00 98.4 116 29 107/79 (88) 97 12/10/17 11:00 122 27 109/80 (90) 97 12/10/17 11:00 122 12/10/17 10:19 128 118/78 12/10/17 10:00 116 12/10/17 10:00 118 20 98/81 (87) 97 12/10/17 09:36 96 Nasal Cannula 2.00 12/10/17 09:28 128 99/64 12/10/17 09:00 128 20 110/78 (89) 98 12/10/17 09:00 130 12/10/17 08:00 98.0 134 33 133/82 (99) 12/10/17 08:00 126 12/10/17 07:00 122 12/10/17 07:00 118 26 96/74 (81) 97 12/10/17 06:01 112 19 99/73 (82) 98 12/10/17 06:00 118 12/10/17 06:00 118 99/73 12/10/17 05:31 106 15 85/65 (72) 97 12/10/17 05:16 108 15 97/67 (77) 97 12/10/17 05:01 110 16 93/68 (76) 96 12/10/17 04:46 106 27 85/64 (71) 98 12/10/17 04:31 106 19 95/64 (74) 97 12/10/17 04:16 114 22 98/66 (77) 97 12/10/17 04:01 97.8 110 19 101/72 (82) 97 12/10/17 04:00 121 12/10/17 03:46 114 18 97/65 (76) 98 12/10/17 03:31 112 18 98/67 (77) 97 12/10/17 03:01 112 20 102/68 (79) 97 12/10/17 02:46 114 17 92/66 (75) 98 12/10/17 02:31 104 16 86/68 (74) 98 12/10/17 02:22 124 95/65 12/10/17 02:01 112 18 100/68 (79) 96 12/10/17 02:00 103 12/10/17 01:46 126 24 95/84 (88) 97 12/10/17 01:31 116 18 97/71 (80) 97 12/10/17 01:16 114 17 87/65 (72) 96 12/10/17 01:01 112 19 87/74 (78) 97 12/10/17 01:01 112 19 87/74 (78) 97 12/10/17 00:46 122 26 86/69 (75) 96 12/10/17 00:46 122 26 86/69 (75) 96 12/10/17 00:31 118 27 90/67 (75) 96 12/10/17 00:31 118 27 90/67 (75) 96 12/10/17 00:16 134 29 99/81 (87) 93 12/10/17 00:16 134 29 99/81 (87) 93 12/10/17 00:15 126 35 92 12/10/17 00:01 124 22 78/56 (63) 96 12/10/17 00:01 99.1 124 22 78/56 (63) 96 12/10/17 00:00 124 21 96 12/10/17 00:00 116 12/09/17 23:31 122 21 89/63 (72) 95 12/09/17 23:16 116 24 81/62 (68) 96 12/09/17 23:01 116 21 83/62 (69) 96 12/09/17 22:31 134 30 113/68 (83) 12/09/17 22:16 108 21 88/59 (69) 95 12/09/17 22:01 110 26 77/59 (65) 95 12/09/17 22:00 123 12/09/17 21:46 126 21 76/50 (59) 94 12/09/17 21:31 120 21 77/59 (65) 94 12/09/17 21:01 126 23 82/72 (75) 96 12/09/17 21:01 96 Nasal Cannula 2.00 12/09/17 20:46 122 25 83/57 (66) 95 12/09/17 20:31 124 23 81/56 (64) 95 Physical Exam GENERAL: This is a chronically ill pleasant atient, in no apparent distress. SKIN: No rashes, ecchymoses or lesions. Cool and dry. HEAD: Atraumatic. Normocephalic. No temporal or scalp tenderness. EYES: Pupils equal round and reactive. Extraocular motions intact. No scleral icterus. No injection or drainage. ENT: Nose without bleeding, purulent drainage or septal hematoma. Throat without erythema, tonsillar hypertrophy or exudate. Uvula midline. Airway patent. NECK: Trachea midline. No JVD or lymphadenopathy. Supple, nontender, no meningeal signs. CARDIOVASCULAR: Irregular rate and rhythm with soft systolic murmurs,No gallops , or rubs. RESPIRATORY: Clear to auscultation. Breath sounds equal bilaterally. No wheezes , rales, or rhonchi. GASTROINTESTINAL: Abdomen soft, non-tender, nondistended. No hepato-splenomegaly , or palpable masses. No guarding. MUSCULOSKELETAL: Extremities without clubbing, cyanosis, or edema. No joint tenderness, effusion, or edema noted. No calf tenderness. Negative Homans sign bilaterally. NEUROLOGICAL: Awake and alert. Cranial nerves II through XII intact. Motor and sensory grossly within normal limits. Five out of 5 muscle strength in all muscle groups. Normal speech. Laboratory Laboratory Tests Test 12/10/17 05:00 12/10/17 09:35 12/10/17 09:36 White Blood Count 12.9 Red Blood Count 4.11 Hemoglobin 11.8 Hematocrit 35.8 Mean Corpuscular Volume 87.0 Mean Corpuscular Hemoglobin 28.7 Mean Corpuscular Hemoglobin Concent 33.0 Red Cell Distribution Width 17.1 Platelet Count 128 Mean Platelet Volume 9.8 Neutrophils (%) (Auto) 84.6 Lymphocytes (%) (Auto) 8.6 Monocytes (%) (Auto) 5.8 Eosinophils (%) (Auto) 0.2 Basophils (%) (Auto) 0.8 Neutrophils # (Auto) 11.0 Lymphocytes # (Auto) 1.1 Monocytes # (Auto) 0.7 Eosinophils # (Auto) 0.0 Basophils # (Auto) 0.1 CBC Comment DIFF FINAL Differential Comment Blood Urea Nitrogen 39 Creatinine 1.50 Random Glucose 174 Total Protein 6.8 Albumin 3.0 Calcium Level 8.6 Alkaline Phosphatase 62 Aspartate Amino Transf (AST/SGOT) 10 Alanine Aminotransferase (ALT/SGPT) 19 Total Bilirubin 2.0 Sodium Level 137 Potassium Level 3.8 Chloride Level 101 Carbon Dioxide Level 27.0 Anion Gap 9 Estimat Glomerular Filtration Rate 46 Prothrombin Time 18.3 Prothromb Time International Ratio 1.8 Activated Partial Thromboplast Time 32.4 Fibrinogen 368 Lactic Acid Level 1.4 Phosphorus Level 2.6 Magnesium Level 1.8 Total Creatine Kinase 28 Troponin I 0.02 Amylase Level 9 Lipase 74 Thyroid Stimulating Hormone 3rd Gen 2.600 Urine Eosinophils NONE SEEN Urine Random Creatinine 198.6 Urine Random Sodium 5 Date/Time Source Procedure Growth Status 12/09/17 12:20 Blood Peripheral Aerobic Blood Culture - Preliminary NO GROWTH IN 1 DAY Resulted 12/09/17 12:20 Blood Peripheral Anaerobic Blood Culture - Preliminary NO GROWTH IN 1 DAY Resulted 12/09/17 13:10 Urine Clean Catch Urine Culture - Preliminary Gram Negative Berry Resulted Result Diagram: 12/10/17 0500 12/10/17 0500 Assessment and Plan Problem List: (1) Septic shock ICD Codes: A41.9 - Sepsis, unspecified organism; R65.21 - Severe sepsis with septic shock Status: Acute Plan: Follow Blood cultures (2) UTI (urinary tract infection) ICD Codes: N39.0 - Urinary tract infection, site not specified Status: Acute Plan: Urine culture with GNR Stop IV Vancomycin Continue IV Cefepime Add Cipro 400 mg IV q12hrs (3) Leukocytosis ICD Codes: D72.829 - Elevated white blood cell count, unspecified Status: Acute Plan: Follow CBC (4) Afib ICD Codes: I48.91 - Unspecified atrial fibrillation Status: Acute Problem Qualifiers (1) UTI (urinary tract infection): Qualified Codes: N39.0 - Urinary tract infection, site not specified; R31.9 - Hematuria, unspecified (2) Afib: Qualified Codes: I48.1 - Persistent atrial fibrillation (3) Leukocytosis: Qualified Codes: D72.829 - Elevated white blood cell count, unspecified Anita Bell MD Dec 10, 2017 20:23
--- NOTE | 2017-12-10 20:24 | EKG ---
Date Performed: 12/09/2017 Time Performed: 11:40:13 PTAGE: 72 years EKG: ATRIAL FIBRILLATION WITH RAPID VENTRICULAR RESPONSE INTRAVENTRICULAR CONDUCTION DELAY Andrei red to previous tracing, there's no evidence of ventricular pacing, although there may be some pacema ker spikes without appropriate capture. There's been an increase to the ventricular response to what was probably underlying atrial fibrillation on the previous tracing. Clincal correlation will be impo rtant to assess the serial changes and pacemaker function ABNORMAL ECG PREVIOUS TRACING : 10/27/2017 10.54 DOCTOR: Zonia Soto Interpretating Date/Time 12/10/2017 20:22:45
[2017-12-10] MEDS: CIPROFLOXACIN 400 MG PREMIX 200 ML IV SCH (20:34)
[2017-12-11] VITALS (38 sets, daily range): BP systolic 81–114; BP diastolic 54–84; PULSE 78–126; RESP 18–35; TEMP 97.1–98.4; O2SAT 79–99
[2017-12-11] MEDS: VASOPRESSIN INJ 40 UNITS in DEXTROSE 5% IN WATER 100ML INJ 98 ML IV SCH ×2 (01:50)
[2017-12-11] MEDS: CHLORHEXIDINE GLUCONATE 2 % 1 PACK (2 CLOTHS) TOP SCH (04:00)
[2017-12-11] MEDS: RESP: ALBUTEROL 2.5 MG/IPRATROPIUM 0.5 MG NEB (SCH) INH ×4 (04:22→21:30)
[2017-12-11] MEDS: PHENAZOPYRIDINE HCL 100 MG TAB PO SCH ×3 (05:03→20:33)
[2017-12-11 05:14] LABS: AUTOMATED NEUTROPHIL # 6.9 TH/MM3 (1.8-7.7); BASOPHIL % 0.4 % (0.0-2.0); EOSINOPHIL % 0.6 % (0.0-4.0); HEMATOCRIT 33.8 % (39.0-51.0); HEMOGLOBIN 11.5 GM/DL (13.0-17.0); LYMPH % 10.9 % (9.0-44.0); LYMPHOCYTE # 0.9 TH/MM3 (1.0-4.8); MEAN CELL VOLUME 87.6 FL (80.0-100.0); MEAN CORPUSCULAR HEMOGLOBIN 29.8 PG (27.0-34.0); MEAN PLATELET VOLUME 10.1 FL (7.0-11.0); MONO % 5.3 % (0.0-8.0); MONOCYTE # 0.4 TH/MM3 (0-0.9); NEUT % 82.8 % (16.0-70.0); PLATELET COUNT 137 TH/MM3 (150-450); RED BLOOD COUNT 3.86 MIL/MM3 (4.50-5.90); RED CELL DISTRIBUTION WIDTH 17.1 % (11.6-17.2); WHITE BLOOD COUNT 8.3 TH/MM3 (4.0-11.0)
[2017-12-11 05:23] LABS: CHLORIDE 103 MEQ/L (98-107); SODIUM (NA) 137 MEQ/L (136-145)
[2017-12-11 05:29] LABS: ALBUMIN 2.8 GM/DL (3.4-5.0); CALCIUM 8.1 MG/DL (8.5-10.1)
[2017-12-11 05:30] LABS: BICARBONATE 26.3 MEQ/L (21.0-32.0); BLOOD UREA NITROGEN 35 MG/DL (7-18); GLUCOSE,RANDOM 139 MG/DL (74-106)
[2017-12-11 05:58] LABS: ALKALINE PHOSPHATASE 58 U/L (45-117); ALT (GPT) 22 U/L (12-78); AST (GOT) 26 U/L (15-37); GLOMERULAR FILTRATION RATE 60 ML/MIN (>89); PHOSPHORUS 1.8 MG/DL (2.5-4.9); TOTAL BILIRUBIN ADULT 1.7 MG/DL (0.2-1.0); TOTAL PROTEIN 6.6 GM/DL (6.4-8.2)
--- NOTE | 2017-12-11 06:10 | HHI.CCPN ---
Subjective Remarks/Hospital Course 72-year-old male. The admission 12/09/2017. Date of consultation 12/10. Past medical history include atrial fibrillation on apixaban, sciatica, coronary disease status post myocardial infarctions 5, hypertension, dyslipidemia, diabetes mellitus type 2 and obstructive sleep apnea requiring CPAP. History of CABG 2. Patient presents to [facility] on with a 3 days history of urinary retention. Documentation of prior attempts to self catheterize he is also been feeling bad, with decreased energy and chills. He came in to the emergency department and is found to have urinary retention, fever, and atrial fibrillation with RVR. Urine culture blood cultures have been obtained in the ER. Patient received multiple fluid boluses have been provided in the emergency department and are not providing much long- term benefit in regards to his blood pressure. Patient started on ceftriaxone and vancomycin is currently on a norepinephrine drip at 12 mcg/min. He will require central line placement for vasopressor support and just with antibiotic SUBJECTIVE: 12/11: Afebrile. Currently on 4 mcg/min of norepinephrine. Brought in home CPAP currently saturating 94%. Heart rate currently 80s. Objective Vital Signs Date Time Temp Pulse Resp B/P (MAP) Pulse Ox O2 Delivery O2 Flow Rate FiO2 12/11/17 05:02 88 24 104/80 (88) 95 12/11/17 04:02 97.4 12/10/17 20:40 Nasal Cannula 3.00 Result Diagram: 12/11/17 0445 12/11/17 0445 Other Results Microbiology Date/Time Source Procedure Growth Status 12/09/17 12:20 Blood Peripheral Aerobic Blood Culture - Preliminary NO GROWTH IN 1 DAY Resulted 12/09/17 12:20 Blood Peripheral Anaerobic Blood Culture - Preliminary NO GROWTH IN 1 DAY Resulted 12/09/17 13:10 Urine Clean Catch Urine Culture - Preliminary Gram Negative Berry Resulted Imaging Last Impressions Chest X-Ray 12/11/17 0600 Signed Impressions: Service Date/Time: Monday, December 11, 2017 06:22 - CONCLUSION: Mild cardiomegaly. Clear lungs. Neftali Reyna Jr., MD Renal Ultrasound 12/10/17 0000 Signed Impressions: Service Date/Time: Sunday, December 10, 2017 10:39 - CONCLUSION: 1. No renal mass or hydronephrosis. Mild ascites. Bladder decompressed by Rangel. Ignacio Lopez MD Objective Remarks GENERAL: 72-year-old male currently resting in bed in no acute distress SKIN: Warm and dry. No rash HEAD: Atraumatic. Normocephalic. EYES: Pupils equal and round. No scleral icterus. No injection or drainage. ENT: No nasal bleeding or discharge. Mucous membranes pink and moist. NECK: Trachea midline. No JVD. Left IJ is clean dry and intact CARDIOVASCULAR: IRR. Intermittently paced. S1, S2. No S4. RESPIRATORY: No accessory muscle use. Clear to auscultation. Breath sounds equal bilaterally. GASTROINTESTINAL: Abdomen soft, non-tender, nondistended. Hepatic and splenic margins not palpable. MUSCULOSKELETAL: Extremities with trace bilateral lower extremity edema NEUROLOGICAL: Awake and alert. No obvious cranial nerve deficits. Motor grossly within normal limits. Five out of 5 muscle strength in the arms and legs. Normal speech. PSYCHIATRIC: Appropriate mood and affect; insight and judgment normal. Urinary Catheter: Yes Assessment to: Continue Rangel insert reason: Prolonged Immobilization Vascular Central Line Catheter: Yes Assessment to: Continue Date of Insertion: Dec 10, 2017 Line: Central Venous Catheter Location: Internal, Jugular A/P Assessment and Plan Neuro/Psych: Acetaminophen 650 mg p.o. every 6 hours as needed fever Oxycodone/acetaminophen 5/325 tablet every 4 hours as needed pain 1 through 5 Morphine sulfate 2 mg IV every 4 hours. Pain 6-10 CV: Atrial fibrillation with rapid ventricular response History of hypertension Dyslipidemia Coronary artery disease status post CABG 2 Placement of defibrillator Patient is currently on norepinephrine at 4 mg/min to maintain mean arterial pressure greater than or equal to [address] CVL and check CVP - 17 Limited 2D echocardiogram will be ordered to evaluate ejection fraction pending Holding lisinopril 2.5 mg p.o. daily light of hypotension Holding carvedilol 25 mg p.o. daily in light of hypotension Resume fenofibrate 145 mg p.o. every other day when clinically indicated Currently holding furosemide 20 mg twice daily Continue aspirin 81 mg p.o. daily Evaluated by Dr. Salazar, cardiology. Signed off. Received 2 doses of digoxin 0.5 mg at 0830 and 1800 on on 312. Level 2.4 this a.m. Resp: Obstructive sleep apnea requiring CPAP Nasal cannula to maintain saturations greater than equal to 92% Incentive spirometry while awake Albuterol/ipratropium aerosols every 6 hours with albuterol aerosols every 2 hours. Dyspnea Using CPAP at night from home GI: Hypoalbuminemia Heart healthy/ADA diet Famotidine 20 mg daily for GI prophylaxis Docusate sodium 100 mg twice daily for bowel regimen : BPH? Placement of Rangel catheter if clinically indicated Start tamsulosin 0.4 mg p.o. daily once able to wean down vasopressors Endo: Diabetes mellitus type 2 Sliding scale insulin with Novulin R with Accu-Cheks before meals/at bedtime to maintain euglycemia/moderate regimen TSH -2.6 Renal: Acute kidney injury Creatinine currently 1.2 Urine sodium 5. Urine creatinine 198. Urine eosinophils negative. Continue gentle hydration with normal saline at 84 cc an hour Heme: Normocytic anemia Thrombocytopenia Chronic apixaban use Monitor CBC daily. Follow trends Continue apixaban 2.5 mg p.o. twice daily ID: Severe sepsis with urinary tract infection -gram-negative berry Adjust antibiotics to cefepime and ciprofloxacin day #2. Vancomycin and ceftriaxone discontinued Pertinent cultures 3/11 -blood cultures 2 -results pending 3/11 -urine culture -gram-negative berry Started on Phenazopyridine 100 mg TID MSK: Sciatica PT evaluate and treat FEN: Hypophosphatemia 30 mmol sodium phosphate IV 1 now. Recheck in am Replace electrolytes as clinically indicated Access Left IJ CVL day #2 placed 3/12 Prophylaxis -GI -famotidine -DVT -SCD/apixaban provides pharmacological prophylaxis Critical Care: The total critical care time was 35 minutes. Time to perform other separately billable procedures was not included in the critical care time. Carlos Márquez MD Dec 11, 2017 06:10
[2017-12-11 06:20] LABS: DIGOXIN 2.4 NG/ML (0.8-2.0)
--- NOTE | 2017-12-11 06:40 | RADRPT ---
EXAM DATE/TIME: 12/11/2017 06:22 [facility] COMPARISON: CHEST SINGLE AP, December 10, 2017, 7:53. INDICATIONS : Shortness of breath. MEDICAL HISTORY : None. SURGICAL HISTORY : Pacemaker. CABG. ENCOUNTER: Subsequent ACUITY: 3 days PAIN SCORE: Non-responsive. LOCATION: Bilateral chest FINDINGS: A single view of the chest demonstrates the lungs to be symmetrically aerated without evidence of mas s, infiltrate or effusion. Mild cardiomegaly. Osseous structures are intact. Median sternotomy wires . Left-sided pacing device. CONCLUSION: Mild cardiomegaly. Clear lungs. Neftali Reyna Jr., MD on December 11, 2017 at 6:38 Board Certified Radiologist. This report was verified electronically.
[2017-12-11] MEDS ORDERED: SODIUM PHOSPHATE INJ 30 MMOL in SODIUM CHLOR 0.9% 250 ML INJ 250 ML IV ONE (07:00)
[2017-12-11 07:38] LABS: DOHLE BODIES PRESENT (NONE SEEN)
[2017-12-11] MEDS: SODIUM CHLOR 0.9% 1000 ML INJ 1,000 ML IV SCH ×2 (07:44→19:39)
[2017-12-11] MEDS: INSULIN ASPART SUPPLEMENTAL SCALE SQ SCH ×4 (08:00→20:32)
[2017-12-11 08:28] LABS: CHOLESTEROL 84 MG/DL (120-200); TRIGLYCERIDES 102 MG/DL (42-150)
[2017-12-11 08:30] LABS: CHOLESTEROL/ HDL RATIO 3.34 RATIO; HDL CHOLESTEROL 25.1 MG/DL (40.0-60.0); LDL CHOLESTEROL 39 MG/DL (0-99)
[2017-12-11] MEDS: CEFEPIME INJ 1,000 MG in SODIUM CHLORIDE 0.9% INJ 100 ML IV SCH ×2 (08:55→20:31)
[2017-12-11] MEDS: CIPROFLOXACIN 400 MG PREMIX 200 ML IV SCH ×2 (08:58→20:31)
[2017-12-11] MEDS: SODIUM CHLORIDE 0.9% FLUSH 10 ML FLUSH IV FLUSH SCH ×3 (08:58→08:59)
[2017-12-11] MEDS: DOCUSATE SODIUM 100 MG CAP PO SCH ×2 (09:00→21:00)
[2017-12-11] MEDS: ASPIRIN EC 81 MG TABEC PO SCH (09:01)
[2017-12-11] MEDS: APIXABAN 2.5 MG TABLET PO SCH ×2 (09:01→20:31)
[2017-12-11] MEDS: FAMOTIDINE 20 MG TAB PO SCH ×2 (09:01→20:32)
[2017-12-11] MEDS: NOREPINEPHRINE-DEXTROSE DRIP 250 ML IV PRN (09:54)
--- NOTE | 2017-12-11 15:25 | HHI.PR ---
Subjective Remarks Patient has been weaned off norepinephrine. Lopressor wean possible this afternoon. Patient is feeling better. Decreased dysuria. Objective Vital Signs Date Time Temp Pulse Resp B/P (MAP) Pulse Ox O2 Delivery O2 Flow Rate FiO2 12/11/17 14:00 78 12/11/17 13:00 84 12/11/17 13:00 82 95/66 (76) 12/11/17 12:00 82 12/11/17 11:00 86 12/11/17 11:00 86 29 95/67 (76) 96 12/11/17 10:59 85 111/69 12/11/17 10:00 88 24 111/73 (86) 96 12/11/17 10:00 88 12/11/17 09:54 92 105/74 12/11/17 09:00 92 26 110/81 (91) 96 12/11/17 09:00 92 12/11/17 08:00 82 12/11/17 08:00 98.4 88 20 113/78 (90) 95 12/11/17 07:00 88 21 114/82 (93) 95 12/11/17 07:00 88 12/11/17 07:00 100 110/81 (91) 12/11/17 06:02 90 22 113/77 (89) 95 12/11/17 06:00 94 12/11/17 05:02 88 24 104/80 (88) 95 12/11/17 04:02 97.4 88 18 114/77 (89) 94 12/11/17 04:00 86 12/11/17 03:02 86 18 114/78 (90) 96 12/11/17 02:02 86 22 114/78 (90) 95 12/11/17 02:00 88 12/11/17 01:50 99 110/85 12/11/17 01:02 90 20 106/77 (87) 95 12/11/17 01:02 90 106/77 (87) 12/11/17 00:02 97.1 86 19 105/74 (84) 95 12/11/17 00:00 92 12/10/17 23:02 102 37 98/68 (78) 96 12/10/17 22:04 112 28 110/66 (81) 96 12/10/17 22:00 118 12/10/17 21:02 100 32 100/62 (75) 94 12/10/17 20:40 96 Nasal Cannula 3.00 12/10/17 20:02 98.9 98 22 110/76 (87) 97 12/10/17 20:00 110 12/10/17 19:02 108 24 101/70 (80) 97 12/10/17 19:02 108 101/70 (80) 12/10/17 18:00 138 12/10/17 18:00 138 39 110/81 (91) 90 12/10/17 17:17 118 107/70 12/10/17 17:16 117 107/70 12/10/17 17:00 126 23 116/81 (93) 95 12/10/17 16:26 118 108/90 12/10/17 16:00 118 12/10/17 16:00 98.2 114 22 111/78 (89) 97 I/O 12/10/17 12/10/17 12/10/17 12/11/17 12/11/17 12/11/17 06:59 14:59 22:59 06:59 14:59 22:59 Intake Total 695 ml 550 ml 2567 ml 1159 ml 250 ml Output Total 500 ml 350 ml 350 ml Balance 195 ml 550 ml 2217 ml 809 ml 250 ml Intake Oral 240 ml 750 ml IV Total 455 ml 550 ml 1817 ml 1159 ml 250 ml Output Urine Total 500 ml 350 ml 350 ml # Bowel Movements 1 1 Result Diagram: 12/11/1744412/11/17444 Objective Remarks GENERAL: NAD, A&Ox3 HEAD: Normocephalic. NECK: Supple, trachea midline. No lymphadenopathy. EYES: No scleral icterus. No injection or drainage. CARDIOVASCULAR: Tachycardic rate and irregularly irregular rhythm without murmurs, gallops, or rubs. RESPIRATORY: Breath sounds equal bilaterally. No accessory muscle use. GASTROINTESTINAL: Abdomen soft, non-tender, nondistended. MUSCULOSKELETAL: No cyanosis, or edema. SKIN: Warm and dry. NEURO: No focal neurological deficitis. A/P Problem List: (1) Septic shock ICD Code: A41.9 - Sepsis, unspecified organism; R65.21 - Severe sepsis with septic shock Status: Acute (2) Afib ICD Code: I48.91 - Unspecified atrial fibrillation Status: Acute (3) Hypotension ICD Code: I95.9 - Hypotension, unspecified Status: Acute (4) UTI (urinary tract infection) ICD Code: N39.0 - Urinary tract infection, site not specified Status: Acute (5) Tachycardia ICD Code: R00.0 - Tachycardia, unspecified Status: Acute (6) Leukocytosis ICD Code: D72.829 - Elevated white blood cell count, unspecified Status: Acute Assessment and Plan 72-year-old male admitted secondary to septic shock related to urinary tract infection. Procedures are being weaned. Continue IV antibiotic. Monitor cultures. Follow clinically for further improvement. Potential transfer out of ICU tomorrow, if patient continues to improve. Septic shock Continue IV Levophed Continue to follow in ICU Treatment infections as below Follow blood cultures Urinary tract infection Rocephin Vancomycin Follow urine cultures A. fib RVR RVR may be related to tachycardia from sepsis Patient is a poor candidate for beta owen or diltiazem IV right now due to hypotension Monitor on telemetry for now Treat infection Consider amiodarone if needed Diabetes mellitus type 2 Follow blood sugars Insulin sliding scale Diabetic diet Hyperlipidemia Continue present treatment Follow as an outpatient Hx of HTN Hold BP treatments for now Follow BP Old myocardial infarction CAD Asymptomatic Follow clinically No change to baseline management planned at this point Problem Qualifiers (1) Afib: Qualified Codes: I48.1 - Persistent atrial fibrillation (2) Hypotension: Qualified Codes: I95.9 - Hypotension, unspecified (3) UTI (urinary tract infection): Qualified Codes: N39.0 - Urinary tract infection, site not specified; R31.9 - Hematuria, unspecified (4) Leukocytosis: Qualified Codes: D72.829 - Elevated white blood cell count, unspecified Hector Ureña MD Dec 11, 2017 15:25
[2017-12-11 16:00] LABS: HEMOGLOBIN A1C 6.5 % (4.3-6.0)
[2017-12-11] MEDS: BENZOCAINE 6 MG/MENTHOL 10 MG LOZENGE BUCCAL PRN (16:19)
[2017-12-11] MEDS: guaiFENesin SOLUTION 200 MG/10 ML CUP PO PRN (16:19)
--- NOTE | 2017-12-11 17:47 | HHI.IDPN ---
Note Infectious Disease Note ID coverage. Chart reviewed. 72 WM with no past h/o UTI or prostate problems- is visiting here from [place] and says he started feeling bad on Sunday with dysuria and incontinence and so came to hosp - found to be in septic shock with hypotension and fast HR. Patient was in a chair and states that when he got up to come to the bed his leg felt wobbly. His systolic blood pressure is 73 currently. He was on Levophed which was stopped earlier. He is now on vasopressin. He is awake and alert currently. He denies chills. Afebrile. Allergies: Coded Allergies: MRI PRECAUTION (Verified Allergy, Severe, DEFIBRILLATOR, 12/09/17) PACEMAKER DIFIBRILLATOR, 10/27/17 DML amitriptyline (Verified Allergy, Unknown, 12/09/17) indomethacin (Verified Allergy, Unknown, 12/09/17) meperidine (Verified Allergy, Unknown, 12/09/17) Past Medical History Coronary artery disease Diabetes mellitus type 2 Hypertension Hyperlipidemia Atrial fibrillation Old myocardial infarction 5 Past Surgical History CABG 2 Defibrillator placement Bilateral knee surgeries Right rotator cuff surgery Coronary stents MEDICATIONS: Current Medications Medications (Trade) Dose Ordered Sig/Ruperto Route PRN Reason Start Time Stop Time Status Last Admin Dose Admin Sodium Chloride (NS Flush) 2 ml UNSCH PRN IV FLUSH FLUSH AFTER USING IV ACCESS 12/09/17 15:30 Sodium Chloride (NS Flush) 2 ml BID IV FLUSH 12/09/17 21:00 12/11/17 08:58 Ondansetron HCl (Zofran Inj) 4 mg Q6H PRN IVP NAUSEA OR VOMITING 12/09/17 15:30 Naloxone HCl (Narcan Inj) 0.4 mg UNSCH PRN IV PUSH SEE LABEL COMMENTS 12/09/17 15:30 Miscellaneous Information 1 Q361D XX 12/09/17 15:30 12/09/17 15:30 Chlorhexidine Gluconate (Chlorhexidine 2% Cloth) 3 pack Taper DAILY@04 TOP 12/10/17 04:00 12/06/18 03:59 12/11/17 04:00 Chlorhexidine Gluconate (Chlorhexidine 2% Cloth) 3 pack UNSCH PRN TOP HYGIENIC CARE 12/09/17 15:30 Norepinephrine Bitartrate 250 ml @ 7.5 mls/hr TITRATE PRN IV Blood pressure management 12/09/17 15:30 12/11/17 09:54 Terbutaline Sulfate (Brethine Inj) 1 mg UNSCH PRN SQ For Extravasation 12/09/17 15:30 Dextrose (D50w (Vial) Inj) 50 ml UNSCH PRN IV PUSH HYPOGLYCEMIA-SEE COMMENTS 12/09/17 16:30 Glucagon (Glucagon Inj) 1 mg UNSCH PRN OTHER HYPOGLYCEMIA-SEE COMMENTS 12/09/17 16:30 Insulin Aspart (NovoLOG SUPPLEMENTAL SCALE) 1 ACHS SLIDING SCALE SQ 12/09/17 17:00 12/11/17 12:00 Apixaban (Eliquis) 2.5 mg BID PO 12/09/17 21:00 12/11/17 09:01 Aspirin (Ecotrin Ec) 81 mg DAILY PO 12/10/17 09:00 12/11/17 09:01 Docusate Sodium (Colace) 100 mg BID PO 12/10/17 09:00 12/10/17 08:45 Sodium Chloride (NS Flush) DAILY IV FLUSH 12/10/17 09:00 12/11/17 08:58 Sodium Chloride (NS Flush) UNSCH PRN IV FLUSH SEE PROTOCOL 12/10/17 08:00 Cefepime HCl 1000 mg/Sodium Chloride 100 ml @ 200 mls/hr Q12H IV 12/10/17 08:00 12/11/17 08:55 Sodium Chloride 1,000 ml @ 84 mls/hr [id number] IV 12/10/17 07:54 12/12/17 07:00 12/10/17 19:41 Sodium Chloride (NS Flush) 2 ml UNSCH PRN IV FLUSH FLUSH AFTER USING IV ACCESS 12/10/17 08:00 Sodium Chloride (NS Flush) 2 ml BID IV FLUSH 12/10/17 09:00 12/11/17 08:59 Acetaminophen (Tylenol) 650 mg Q6H PRN PO FEVER >100F 12/10/17 08:00 Oxycodone/ Acetaminophen (Percocet 5-325 Mg) 1 tab Q4H PRN PO PAIN SCALE 1 TO 5 12/10/17 08:00 Morphine Sulfate (Morphine Inj) 2 mg Q2H PRN IV PUSH PAIN SCALE 6 TO 10 12/10/17 08:00 Albuterol/ Ipratropium (Duoneb Neb) 1 ampule Q6HR NEB INH 12/10/17 10:00 12/11/17 04:22 Albuterol Sulfate (Albuterol Neb) 2.5 mg Q2HR NEB PRN INH SOB/WHEEZING 12/10/17 08:00 Phenazopyridine HCl (Pyridium) 100 mg Q8HR PO 12/10/17 22:00 12/11/17 15:12 Ciprofloxacin/ Dextrose 200 ml @ 200 mls/hr Q12H IV 12/10/17 21:00 12/11/17 08:58 Famotidine (Pepcid) 20 mg Q12HR PO 12/11/17 21:00 Benzocaine/Menthol (Chloraseptic Juve) 1 lozenge UNSCH PRN BUCCAL ITCHING THROAT 12/11/17 15:30 12/11/17 16:19 Guaifenesin (Robitussin Liq) 200 mg Q4H PRN PO COUGH 12/11/17 15:30 12/11/17 16:19 Family History Coronary artery disease in patient's father and numerous males on father's side of the family Social History - lives with his No h/o smoking Lives in [place] - [facility] for the winter months. Physical Exam Vital Signs Date Time Temp Pulse Resp B/P (MAP) Pulse Ox O2 Delivery O2 Flow Rate FiO2 12/11/17 16:45 90 109/71 12/11/17 16:00 84 12/11/17 14:00 78 12/11/17 13:00 84 12/11/17 13:00 82 95/66 (76) 12/11/17 12:00 82 12/11/17 11:00 86 12/11/17 11:00 86 29 95/67 (76) 96 12/11/17 10:59 85 111/69 12/11/17 10:00 88 24 111/73 (86) 96 12/11/17 10:00 88 12/11/17 09:54 92 105/74 12/11/17 09:00 92 26 110/81 (91) 96 12/11/17 09:00 92 12/11/17 08:00 82 12/11/17 08:00 98.4 88 20 113/78 (90) 95 12/11/17 07:00 88 21 114/82 (93) 95 12/11/17 07:00 88 12/11/17 07:00 100 110/81 (91) 12/11/17 06:02 90 22 113/77 (89) 95 12/11/17 06:00 94 12/11/17 05:02 88 24 104/80 (88) 95 12/11/17 04:02 97.4 88 18 114/77 (89) 94 12/11/17 04:00 86 12/11/17 03:02 86 18 114/78 (90) 96 12/11/17 02:02 86 22 114/78 (90) 95 12/11/17 02:00 88 12/11/17 01:50 99 110/85 12/11/17 01:02 90 20 106/77 (87) 95 12/11/17 01:02 90 106/77 (87) 12/11/17 00:02 97.1 86 19 105/74 (84) 95 12/11/17 00:00 92 12/10/17 23:02 102 37 98/68 (78) 96 12/10/17 22:04 112 28 110/66 (81) 96 12/10/17 22:00 118 12/10/17 21:02 100 32 100/62 (75) 94 12/10/17 20:40 96 Nasal Cannula 3.00 12/10/17 20:02 98.9 98 22 110/76 (87) 97 12/10/17 20:00 110 12/10/17 19:02 108 24 101/70 (80) 97 12/10/17 19:02 108 101/70 (80) 12/10/17 18:00 138 12/10/17 18:00 138 39 110/81 (91) 90 Laboratory Tests Test 12/10/17 05:00 12/11/17 04:45 White Blood Count 12.9 TH/MM3 8.3 TH/MM3 Red Blood Count 4.11 MIL/MM3 3.86 MIL/MM3 Hemoglobin 11.8 GM/DL 11.5 GM/DL Hematocrit 35.8 % 33.8 % Mean Corpuscular Volume 87.0 FL 87.6 FL Mean Corpuscular Hemoglobin 28.7 PG 29.8 PG Mean Corpuscular Hemoglobin Concent 33.0 % 34.0 % Red Cell Distribution Width 17.1 % 17.1 % Platelet Count 128 TH/MM3 137 TH/MM3 Mean Platelet Volume 9.8 FL 10.1 FL Neutrophils (%) (Auto) 84.6 % 82.8 % Lymphocytes (%) (Auto) 8.6 % 10.9 % Monocytes (%) (Auto) 5.8 % 5.3 % Eosinophils (%) (Auto) 0.2 % 0.6 % Basophils (%) (Auto) 0.8 % 0.4 % Neutrophils # (Auto) 11.0 TH/MM3 6.9 TH/MM3 Lymphocytes # (Auto) 1.1 TH/MM3 0.9 TH/MM3 Monocytes # (Auto) 0.7 TH/MM3 0.4 TH/MM3 Eosinophils # (Auto) 0.0 TH/MM3 0.0 TH/MM3 Basophils # (Auto) 0.1 TH/MM3 0.0 TH/MM3 CBC Comment DIFF FINAL AUTO DIFF Differential Comment AUTO DIFF CONFIRMED Dohle Bodies PRESENT Platelet Estimate LOW Platelet Morphology Comment NORMAL Polychromasia 2.0 % Laboratory Tests Test 12/10/17 05:00 12/10/17 09:35 12/11/17 04:45 Blood Urea Nitrogen 39 MG/DL 35 MG/DL Creatinine 1.50 MG/DL 1.20 MG/DL Random Glucose 174 MG/DL 139 MG/DL Total Protein 6.8 GM/DL 6.6 GM/DL Albumin 3.0 GM/DL 2.8 GM/DL Calcium Level 8.6 MG/DL 8.1 MG/DL Alkaline Phosphatase 62 U/L 58 U/L Aspartate Amino Transf (AST/SGOT) 10 U/L 26 U/L Alanine Aminotransferase (ALT/SGPT) 19 U/L 22 U/L Total Bilirubin 2.0 MG/DL 1.7 MG/DL Sodium Level 137 MEQ/L 137 MEQ/L Potassium Level 3.8 MEQ/L 4.5 MEQ/L Chloride Level 101 MEQ/L 103 MEQ/L Carbon Dioxide Level 27.0 MEQ/L 26.3 MEQ/L Anion Gap 9 MEQ/L 8 MEQ/L Estimat Glomerular Filtration Rate 46 ML/MIN 60 ML/MIN Lactic Acid Level 1.4 mmol/L 1.5 mmol/L Phosphorus Level 2.6 MG/DL 1.8 MG/DL Magnesium Level 1.8 MG/DL 2.0 MG/DL Total Creatine Kinase 28 U/L Troponin I 0.02 NG/ML Amylase Level 9 U/L Lipase 74 U/L Thyroid Stimulating Hormone 3rd Gen 2.600 uIU/ML Hemoglobin A1c 6.5 % Triglycerides Level 102 MG/DL Cholesterol Level 84 MG/DL LDL Cholesterol 39 MG/DL HDL Cholesterol 25.1 MG/DL Cholesterol/HDL Ratio 3.34 RATIO Microbiology Date/Time Source Procedure Growth Status 12/09/17 12:20 Blood Peripheral Aerobic Blood Culture - Preliminary NO GROWTH IN 2 DAYS Resulted 12/09/17 12:20 Blood Peripheral Anaerobic Blood Culture - Preliminary NO GROWTH IN 2 DAYS Resulted 12/09/17 12:15 Blood Peripheral Aerobic Blood Culture - Preliminary NO GROWTH IN 2 DAYS Resulted 12/09/17 12:15 Blood Peripheral Anaerobic Blood Culture - Preliminary NO GROWTH IN 2 DAYS Resulted 12/09/17 13:10 Urine Clean Catch Urine Culture - Final Escherichia Coli Complete IMAGING: Chest X-Ray 12/11/17 0600 Signed Impressions: Service Date/Time: Monday, December 11, 2017 06:22 - CONCLUSION: Mild cardiomegaly. Clear lungs. Neftali Reyna Jr., MD Renal Ultrasound 12/10/17 0000 Signed Impressions: Service Date/Time: Sunday, December 10, 2017 10:39 - CONCLUSION: 1. No renal mass or hydronephrosis. Mild ascites. Bladder decompressed by Rangel. Ignacio Lopez MD Physical Exam GENERAL: Patient is awake and alert and in no acute distress. HEAD: Atraumatic. Normocephalic. EYES: Pupils equal round and reactive. Extraocular motions intact. No scleral icterus. ENT: Moist oral mucosa. NECK: Trachea midline. Supple without adenopathy. CARDIOVASCULAR: Irregular rate and rhythm with soft systolic murmurs,No gallops , or rubs. RESPIRATORY: Clear to auscultation. Breath sounds equal bilaterally. No rhonchi. GASTROINTESTINAL: Abdomen soft, non-tender, nondistended. MUSCULOSKELETAL: Extremities without clubbing, cyanosis, or edema. NEUROLOGICAL: Awake and alert. Nonfocal. SKIN: No rash. Warm and moist. ASSESSMENT: 1. Septic shock. Patient appears improved but continues to have hypotension. 2. Urinary tract infection 3. Leukocytosis improved 4. Acute renal failure improved 5. Atrial fibrillation RECOMMENDATIONS: 1. Continue ciprofloxacin. 2. Discontinue cefepime. 3. Monitor temperature. 4. Monitor clinical status. 5. Follow renal function. Discussed with RN. Brayden Vogt MD Dec 11, 2017 17:47
--- NOTE | 2017-12-11 20:09 | EKG ---
Date Performed: 12/10/2017 Time Performed: 17:33:35 PTAGE: 72 years EKG: ATRIAL FIBRILLATION ELECTRONIC VENTRICULAR PACEMAKER -- CONTOUR ANALYSIS BASED ON INTRINSIC RHYTHM INTRAVENTRICULAR CONDUCTION DELAY ABNORMAL ECG PREVIOUS TRACING : 12/09/2017 11.40 Since the previous tracing, no significant change noted DOCTOR: Dia Fonseca Interpretating Date/Time 12/11/2017 20:08:45
[2017-12-11] MEDS ORDERED: PHARMACY ORDERED LAB ONE (23:45)
[2017-12-12] VITALS (37 sets, daily range): BP systolic 92–122; BP diastolic 64–91; PULSE 83–138; RESP 11–35; TEMP 97.9–98.2; O2SAT 92–99
[2017-12-12] MEDS: RESP: ALBUTEROL 2.5 MG/IPRATROPIUM 0.5 MG NEB (SCH) INH ×4 (04:00→21:30)
[2017-12-12] MEDS: CHLORHEXIDINE GLUCONATE 2 % 1 PACK (2 CLOTHS) TOP SCH (04:00)
[2017-12-12] MEDS: SODIUM CHLORIDE 0.9% FLUSH 10 ML FLUSH IV FLUSH SCH ×7 (06:01→20:06)
[2017-12-12] MEDS: PHENAZOPYRIDINE HCL 100 MG TAB PO SCH ×3 (06:02→22:00)
[2017-12-12 06:13] LABS: AUTOMATED NEUTROPHIL # 4.3 TH/MM3 (1.8-7.7); BASOPHIL % 0.5 % (0.0-2.0); EOSINOPHIL # 0.1 TH/MM3 (0-0.4); EOSINOPHIL % 1.9 % (0.0-4.0); HEMATOCRIT 33.3 % (39.0-51.0); HEMOGLOBIN 11.5 GM/DL (13.0-17.0); LYMPH % 14.7 % (9.0-44.0); LYMPHOCYTE # 0.9 TH/MM3 (1.0-4.8); MEAN CELL VOLUME 87.2 FL (80.0-100.0); MEAN CORPUSCULAR HEMOGLOBIN 30.1 PG (27.0-34.0); MEAN CORPUSCULAR HGB CONC 34.5 % (32.0-36.0); MEAN PLATELET VOLUME 9.4 FL (7.0-11.0); MONO % 10.3 % (0.0-8.0); MONOCYTE # 0.6 TH/MM3 (0-0.9); NEUT % 72.6 % (16.0-70.0); PLATELET COUNT 159 TH/MM3 (150-450); RED BLOOD COUNT 3.81 MIL/MM3 (4.50-5.90); WHITE BLOOD COUNT 5.9 TH/MM3 (4.0-11.0)
[2017-12-12 06:23] LABS: CHLORIDE 105 MEQ/L (98-107); SODIUM (NA) 138 MEQ/L (136-145)
--- NOTE | 2017-12-12 06:23 | HHI.CCPN ---
Subjective Remarks/Hospital Course 72-year-old male. The admission 12/09/2017. Date of consultation 12/10. Past medical history include atrial fibrillation on apixaban, sciatica, coronary disease status post myocardial infarctions 5, hypertension, dyslipidemia, diabetes mellitus type 2 and obstructive sleep apnea requiring CPAP. History of CABG 2. Patient presents to [facility] on with a 3 days history of urinary retention. Documentation of prior attempts to self catheterize he is also been feeling bad, with decreased energy and chills. He came in to the emergency department and is found to have urinary retention, fever, and atrial fibrillation with RVR. Urine culture blood cultures have been obtained in the ER. Patient received multiple fluid boluses have been provided in the emergency department and are not providing much long- term benefit in regards to his blood pressure. Patient started on ceftriaxone and vancomycin is currently on a norepinephrine drip at 12 mcg/min. He will require central line placement for vasopressor support and just with antibiotic 12/11: Afebrile. Currently on 4 mcg/min of norepinephrine. Brought in home CPAP currently saturating 94%. Heart rate currently 80s. SUBJECTIVE: 12/12: Afebrile. Remains on 2 mcg/min norepinephrine. HR controlled. Cough controlled. Objective Vital Signs Date Time Temp Pulse Resp B/P (MAP) Pulse Ox O2 Delivery O2 Flow Rate FiO2 12/12/17 06:05 90 19 113/79 (90) 97 12/12/17 04:05 97.9 12/11/17 21:30 Nasal Cannula 2.00 Intake and Output 12/12/17 12/12/17 12/13/17 08:00 16:00 00:00 Intake Total 520 ml Output Total 650 ml Balance -130 ml Result Diagram: 12/12/17 0555 12/12/17 0555 Other Results Microbiology Date/Time Source Procedure Growth Status 12/09/17 12:20 Blood Peripheral Aerobic Blood Culture - Preliminary NO GROWTH IN 2 DAYS Resulted 12/09/17 12:20 Blood Peripheral Anaerobic Blood Culture - Preliminary NO GROWTH IN 2 DAYS Resulted 12/09/17 13:10 Urine Clean Catch Urine Culture - Final Escherichia Coli Complete Imaging Last Impressions Chest X-Ray 12/11/17 0600 Signed Impressions: Service Date/Time: Monday, December 11, 2017 06:22 - CONCLUSION: Mild cardiomegaly. Clear lungs. Neftali Reyna Jr., MD Renal Ultrasound 12/10/17 0000 Signed Impressions: Service Date/Time: Sunday, December 10, 2017 10:39 - CONCLUSION: 1. No renal mass or hydronephrosis. Mild ascites. Bladder decompressed by Rangel. Ignacio Lopez MD Objective Remarks GENERAL: 72-year-old male currently resting in bed in no acute distress SKIN: Warm and dry. No rash HEAD: Atraumatic. Normocephalic. EYES: Pupils equal and round. No scleral icterus. No injection or drainage. ENT: No nasal bleeding or discharge. Mucous membranes pink and moist. NECK: Trachea midline. No JVD. Left IJ is clean dry and intact CARDIOVASCULAR: IRR. Intermittently paced. S1, S2. No S4. RESPIRATORY: No accessory muscle use. Clear to auscultation. Breath sounds equal bilaterally. GASTROINTESTINAL: Abdomen soft, non-tender, nondistended. Hepatic and splenic margins not palpable. MUSCULOSKELETAL: Extremities with trace bilateral lower extremity edema NEUROLOGICAL: Awake and alert. No obvious cranial nerve deficits. Motor grossly within normal limits. Five out of 5 muscle strength in the arms and legs. Normal speech. PSYCHIATRIC: Appropriate mood and affect; insight and judgment normal. Urinary Catheter: No Assessment to: Continue Vascular Central Line Catheter: Yes Assessment to: Continue Date of Insertion: Dec 10, 2017 Line: Central Venous Catheter Location: Internal, Jugular A/P Assessment and Plan Neuro/Psych: Acetaminophen 650 mg p.o. every 6 hours as needed fever Oxycodone/acetaminophen 5/325 tablet every 4 hours as needed pain 1 through 5 Morphine sulfate 2 mg IV every 4 hours. Pain 6-10 CV: Atrial fibrillation with rapid ventricular response History of hypertension Dyslipidemia Coronary artery disease status post CABG 2 Placement of defibrillator CHF - chronic systolic Mod pHTN Patient is currently on norepinephrine at 2 mg/min to maintain mean arterial pressure greater than or equal to 65 CVP - 17 Limited 2D echocardiogram - LVSF is severely reduced with an estimated ejection fraction less than 20%. Moderately dilated left ventricle. There is global left ventricular dysfunction. [id number] mitral valve regurgitation. Mitral annular calcification is present. Diffuse calcification of the aortic valve. Trace aortic valve regurgitation. There is trace tricuspid valve regurgitation. The estimated pulmonary arterial pressure is 48.2 mmHg. Holding lisinopril 2.5 mg p.o. daily light of hypotension Holding carvedilol 25 mg p.o. daily in light of hypotension Resume fenofibrate 145 mg p.o. every other day when clinically indicated Currently holding furosemide 20 mg twice daily. Continue aspirin 81 mg p.o. daily Evaluated by Dr. Salazar, cardiology. Signed off. Received 2 doses of digoxin 0.5 mg at 0830 and 1800 on on 312. Level 2.4 on 12/11 Resp: Obstructive sleep apnea requiring CPAP Nasal cannula to maintain saturations greater than equal to 92% Incentive spirometry while awake Albuterol/ipratropium aerosols every 6 hours with albuterol aerosols every 2 hours. Dyspnea Using CPAP at night from home GI: Hypoalbuminemia Elevated TB and AST Heart healthy/ADA diet Famotidine 20 mg daily for GI prophylaxis Docusate sodium 100 mg twice daily for bowel regimen : BPH? Placement of Rangel catheter if clinically indicated Start tamsulosin 0.4 mg p.o. daily once able to wean down vasopressors Endo: Diabetes mellitus type 2 Sliding scale insulin with Novulin R with Accu-Cheks before meals/at bedtime to maintain euglycemia/moderate regimen 4 U SSI past 24 hrs TSH -2.6 Renal: Acute kidney injury Creatinine currently 1.2 Urine sodium 5. Urine creatinine 198. Urine eosinophils negative. Continue gentle hydration with normal saline at 84 cc an hour. D/c today Heme: Normocytic anemia Chronic apixaban use Monitor CBC daily. Follow trends Continue apixaban 2.5 mg p.o. twice daily ID: Severe sepsis with urinary tract infection -gram-negative day Adjust antibiotics to cefepime and ciprofloxacin day #2. Vancomycin and ceftriaxone discontinued Pertinent cultures 3/11 -blood cultures 2 -results pending 3/ -urine culture -gram-negative day Started on Phenazopyridine 100 mg TID MSK: Sciatica PT evaluate and treat FEN: Replace electrolytes as clinically indicated ICU electrolyte protocol Access Left IJ CVL day #3 placed 3 Prophylaxis -GI -famotidine -DVT -SCD/apixaban provides pharmacological prophylaxis Critical Care: The total critical care time was 35 minutes. Time to perform other separately billable procedures was not included in the critical care time. Carlos Márquez MD Dec 12, 2017 06:23
[2017-12-12 06:26] LABS: CALCIUM 8.2 MG/DL (8.5-10.1)
[2017-12-12 06:27] LABS: ALBUMIN 2.7 GM/DL (3.4-5.0); BICARBONATE 26.4 MEQ/L (21.0-32.0); BLOOD UREA NITROGEN 28 MG/DL (7-18); GLUCOSE,RANDOM 96 MG/DL (74-106); MAGNESIUM 2.1 MG/DL (1.5-2.5)
[2017-12-12 06:30] LABS: ALT (GPT) 34 U/L (12-78)
[2017-12-12 06:42] LABS: ALKALINE PHOSPHATASE 53 U/L (45-117); AST (GOT) 62 U/L (15-37); GLOMERULAR FILTRATION RATE 83 ML/MIN (>89); PHOSPHORUS 1.8 MG/DL (2.5-4.9); TOTAL BILIRUBIN ADULT 1.7 MG/DL (0.2-1.0); TOTAL PROTEIN 6.5 GM/DL (6.4-8.2)
[2017-12-12] MEDS: INSULIN ASPART SUPPLEMENTAL SCALE SQ SCH ×4 (07:59→20:06)
[2017-12-12] MEDS: ASPIRIN EC 81 MG TABEC PO SCH (08:10)
[2017-12-12] MEDS: FAMOTIDINE 20 MG TAB PO SCH ×2 (08:10→20:05)
[2017-12-12] MEDS: DOCUSATE SODIUM 100 MG CAP PO SCH ×2 (08:10→20:06)
[2017-12-12] MEDS: CIPROFLOXACIN 400 MG PREMIX 200 ML IV SCH (08:11)
[2017-12-12] MEDS: SODIUM CHLORIDE 0.9% FLUSH 10 ML FLUSH IV FLUSH PRN (08:11)
[2017-12-12] MEDS: APIXABAN 2.5 MG TABLET PO SCH ×2 (08:11→20:06)
[2017-12-12] MEDS: CEFEPIME INJ 1,000 MG in SODIUM CHLORIDE 0.9% INJ 100 ML IV SCH ×2 (08:11→19:26)
[2017-12-12] MEDS: BENZOCAINE 6 MG/MENTHOL 10 MG LOZENGE BUCCAL PRN ×2 (09:36→23:09)
[2017-12-12] MEDS: guaiFENesin SOLUTION 200 MG/10 ML CUP PO PRN ×2 (11:42→20:05)
--- NOTE | 2017-12-12 14:58 | HHI.PR ---
Subjective Remarks Potential wean off pressors today. Patient's blood pressures are more stable, however he does continue on 1 pressor. No new complaints from the patient. Objective Vital Signs Date Time Temp Pulse Resp B/P (MAP) Pulse Ox O2 Delivery O2 Flow Rate FiO2 12/12/17 14:00 128 32 101/76 (84) 92 12/12/17 14:00 128 12/12/17 13:30 116 27 104/67 (79) 99 12/12/17 13:00 138 100/78 (85) 12/12/17 13:00 138 35 100/78 (85) 92 12/12/17 12:00 122 12/12/17 12:00 98.1 122 31 110/73 (85) 95 12/12/17 11:45 116 28 101/64 (76) 94 12/12/17 11:01 114 25 104/81 (89) 95 12/12/17 10:54 96 21 12/12/17 10:01 120 26 121/72 (88) 95 12/12/17 10:00 118 12/12/17 09:36 98 30 105/78 (87) 93 12/12/17 09:00 118 12/12/17 08:00 104 114/77 (89) 12/12/17 08:00 108 12/12/17 07:44 97.9 98 26 114/77 (89) 97 12/12/17 07:44 98 114/77 (89) 12/12/17 07:05 96 15 121/87 (98) 97 12/12/17 07:00 88 18 96 12/12/17 07:00 88 12/12/17 06:05 90 19 113/79 (90) 97 12/12/17 06:00 88 12/12/17 05:05 94 14 115/79 (91) 97 12/12/17 04:05 97.9 98 20 118/73 (88) 95 12/12/17 04:00 98 12/12/17 03:05 110 19 116/69 (85) 97 12/12/17 02:00 83 12/12/17 02:00 108 22 109/76 (87) 95 12/12/17 01:00 134 18 119/91 (100) 96 12/12/17 01:00 104 92/69 (77) 12/12/17 00:00 98.0 116 20 122/81 (95) 96 12/12/17 00:00 88 12/11/17 23:38 118 23 112/84 (93) 96 12/11/17 23:17 112 20 110/84 (93) 97 12/11/17 23:02 112 22 103/70 (81) 95 12/11/17 22:00 81 12/11/17 21:30 97 Nasal Cannula 2.00 12/11/17 21:17 104 23 107/81 (90) 96 12/11/17 21:02 114 23 90/81 (84) 97 12/11/17 20:47 120 28 104/69 (81) 98 12/11/17 20:32 114 25 113/60 (77) 92 12/11/17 20:17 126 35 96/69 (78) 89 12/11/17 20:02 108 23 110/76 (87) 97 12/11/17 20:00 92 12/11/17 19:47 108 30 92/69 (77) 97 12/11/17 19:32 100 25 103/69 (80) 97 12/11/17 19:00 98.2 100 20 109/69 (82) 98 12/11/17 19:00 104 92/69 (77) 12/11/17 18:00 100 29 81/54 (63) 99 12/11/17 18:00 92 12/11/17 17:48 98 73/61 12/11/17 17:00 88 26 85/67 (73) 97 12/11/17 16:45 90 109/71 12/11/17 16:00 84 12/11/17 16:00 98.3 82 21 90/74 (79) 79 12/11/17 15:00 80 23 96/68 (77) 98 I/O 12/11/17 12/11/17 12/11/17 12/12/17 12/12/17 12/12/17 07:00 15:00 23:00 07:00 15:00 23:00 Intake Total 1159 ml 250 ml 1376.2 ml 520 ml 300 ml Output Total 350 ml 455 ml 650 ml Balance 809 ml 250 ml 921.2 ml -130 ml 300 ml Intake Oral 750 ml 520 ml IV Total 1159 ml 250 ml 626.2 ml 300 ml Output Urine Total 350 ml 455 ml 650 ml # Bowel Movements 0 0 Result Diagram: 12/12/1755 12/12/1755 Objective Remarks GENERAL: NAD, A&Ox3 HEAD: Normocephalic. NECK: Supple, trachea midline. No lymphadenopathy. EYES: No scleral icterus. No injection or drainage. CARDIOVASCULAR: Tachycardic rate and irregularly irregular rhythm without murmurs, gallops, or rubs. RESPIRATORY: Breath sounds equal bilaterally. No accessory muscle use. GASTROINTESTINAL: Abdomen soft, non-tender, nondistended. MUSCULOSKELETAL: No cyanosis, or edema. SKIN: Warm and dry. NEURO: No focal neurological deficitis. A/P Problem List: (1) Septic shock ICD Code: A41.9 - Sepsis, unspecified organism; R65.21 - Severe sepsis with septic shock Status: Acute (2) Afib ICD Code: I48.91 - Unspecified atrial fibrillation Status: Acute (3) Hypotension ICD Code: I95.9 - Hypotension, unspecified Status: Acute (4) UTI (urinary tract infection) ICD Code: N39.0 - Urinary tract infection, site not specified Status: Acute (5) Tachycardia ICD Code: R00.0 - Tachycardia, unspecified Status: Acute (6) Leukocytosis ICD Code: D72.829 - Elevated white blood cell count, unspecified Status: Acute Assessment and Plan 72-year-old male admitted secondary to septic shock related to urinary tract infection. Pressors are being weaned as tolerated. Continue IV antibiotic. Monitor cultures. Potential transfer out of ICU after pressors are stopped and pressures remain stable. Septic shock Continue IV Levophed Continue to follow in ICU Treatment infections as below Follow blood cultures Urinary tract infection Rocephin Vancomycin Follow urine cultures A. fib RVR RVR may be related to tachycardia from sepsis Patient is a poor candidate for beta owen or diltiazem IV right now due to hypotension Monitor on telemetry for now Treat infection Consider amiodarone if needed Diabetes mellitus type 2 Follow blood sugars Insulin sliding scale Diabetic diet Hyperlipidemia Continue present treatment Follow as an outpatient Hx of HTN Hold BP treatments for now Follow BP Old myocardial infarction CAD Asymptomatic Follow clinically No change to baseline management planned at this point Problem Qualifiers (1) Afib: Qualified Codes: I48.1 - Persistent atrial fibrillation (2) Hypotension: Qualified Codes: I95.9 - Hypotension, unspecified (3) UTI (urinary tract infection): Qualified Codes: N39.0 - Urinary tract infection, site not specified; R31.9 - Hematuria, unspecified (4) Leukocytosis: Qualified Codes: D72.829 - Elevated white blood cell count, unspecified Hector Ureña MD Dec 12, 2017 14:58
[2017-12-12] MEDS: CIPROFLOXACIN 500 MG TAB PO SCH (20:05)
[2017-12-13] VITALS (24 sets, daily range): BP systolic 90–131; BP diastolic 69–93; PULSE 76–142; RESP 16–36; TEMP 97.9–98.4; O2SAT 94–98
[2017-12-13] MEDS: RESP: ALBUTEROL 2.5 MG/IPRATROPIUM 0.5 MG NEB (SCH) INH ×4 (03:00→22:00)
[2017-12-13] MEDS: CHLORHEXIDINE GLUCONATE 2 % 1 PACK (2 CLOTHS) TOP SCH (04:00)
--- NOTE | 2017-12-13 05:03 | RADRPT ---
EXAM DATE/TIME: 12/13/2017 04:44 [facility] COMPARISON: CHEST SINGLE AP, December 11, 2017, 6:22. INDICATIONS : Shortness of breath MEDICAL HISTORY : None. SURGICAL HISTORY : Pacemaker. CABG ENCOUNTER: Subsequent ACUITY: 4 - 6 days PAIN SCORE: 0/10 LOCATION: Bilateral chest FINDINGS: Cardiomegaly with pulmonary vascular engorgement. No infiltrate or effusion. Median sternotomy wires. Left-sided pacing device. CONCLUSION: Cardiomegaly with mild pulmonary vascular engorgement. Clear lungs. Neftali Reyna Jr., MD on December 13, 2017 at 5:01 Board Certified Radiologist. This report was verified electronically.
[2017-12-13] MEDS: PHENAZOPYRIDINE HCL 100 MG TAB PO SCH ×3 (05:35→20:33)
[2017-12-13 06:25] LABS: AUTOMATED NEUTROPHIL # 4.3 TH/MM3 (1.8-7.7); BASOPHIL # 0.1 TH/MM3 (0-0.2); BASOPHIL % 1.1 % (0.0-2.0); EOSINOPHIL # 0.1 TH/MM3 (0-0.4); HEMATOCRIT 34.2 % (39.0-51.0); HEMOGLOBIN 10.9 GM/DL (13.0-17.0); LYMPH % 14.4 % (9.0-44.0); LYMPHOCYTE # 0.9 TH/MM3 (1.0-4.8); MEAN CELL VOLUME 87.3 FL (80.0-100.0); MEAN CORPUSCULAR HEMOGLOBIN 27.8 PG (27.0-34.0); MEAN CORPUSCULAR HGB CONC 31.8 % (32.0-36.0); MEAN PLATELET VOLUME 9.3 FL (7.0-11.0); MONO % 11.8 % (0.0-8.0); MONOCYTE # 0.7 TH/MM3 (0-0.9); NEUT % 70.7 % (16.0-70.0); PLATELET COUNT 169 TH/MM3 (150-450); RED BLOOD COUNT 3.92 MIL/MM3 (4.50-5.90); RED CELL DISTRIBUTION WIDTH 16.8 % (11.6-17.2); WHITE BLOOD COUNT 6.1 TH/MM3 (4.0-11.0)
[2017-12-13 06:44] LABS: CHLORIDE 107 MEQ/L (98-107); SODIUM (NA) 141 MEQ/L (136-145)
[2017-12-13 06:48] LABS: ALBUMIN 2.6 GM/DL (3.4-5.0); BICARBONATE 27.6 MEQ/L (21.0-32.0); GLUCOSE,RANDOM 77 MG/DL (74-106)
[2017-12-13 06:49] LABS: BLOOD UREA NITROGEN 24 MG/DL (7-18); MAGNESIUM 2.2 MG/DL (1.5-2.5)
[2017-12-13 07:04] LABS: ALKALINE PHOSPHATASE 56 U/L (45-117); ALT (GPT) 90 U/L (12-78); AST (GOT) 223 U/L (15-37); CREATININE 0.86 MG/DL (0.60-1.30); GLOMERULAR FILTRATION RATE 88 ML/MIN (>89); PHOSPHORUS 1.4 MG/DL (2.5-4.9); TOTAL BILIRUBIN ADULT 1.7 MG/DL (0.2-1.0); TOTAL PROTEIN 6.2 GM/DL (6.4-8.2)
[2017-12-13] MEDS: INSULIN ASPART SUPPLEMENTAL SCALE SQ SCH ×4 (08:00→20:39)
[2017-12-13] MEDS: DOCUSATE SODIUM 100 MG CAP PO SCH ×2 (08:31→20:33)
[2017-12-13] MEDS: CEFEPIME INJ 1,000 MG in SODIUM CHLORIDE 0.9% INJ 100 ML IV SCH (08:36)
[2017-12-13] MEDS: FAMOTIDINE 20 MG TAB PO SCH ×2 (08:39→20:33)
[2017-12-13] MEDS: APIXABAN 2.5 MG TABLET PO SCH ×2 (08:39→20:33)
[2017-12-13] MEDS: SODIUM CHLORIDE 0.9% FLUSH 10 ML FLUSH IV FLUSH SCH ×5 (08:39→20:46)
[2017-12-13] MEDS: CIPROFLOXACIN 500 MG TAB PO SCH ×2 (08:39→20:33)
[2017-12-13] MEDS: ASPIRIN EC 81 MG TABEC PO SCH (08:39)
--- NOTE | 2017-12-13 09:52 | HHI.PR ---
Subjective Remarks Patient is now off pressors. Able to ambulate short distances. Dysuria is improving. Objective Vital Signs Date Time Temp Pulse Resp B/P (MAP) Pulse Ox O2 Delivery O2 Flow Rate FiO2 12/13/17 07:00 76 16 100/69 (79) 97 12/13/17 06:00 88 18 104/77 (86) 97 12/13/17 06:00 88 12/13/17 05:00 85 18 100/80 (87) 97 12/13/17 04:00 92 12/13/17 04:00 98.0 92 19 97/80 (86) 96 12/13/17 03:00 92 20 110/78 (89) 97 12/13/17 02:00 104 12/13/17 02:00 104 24 102/75 (84) 96 12/13/17 01:00 138 100/78 (85) 12/13/17 01:00 101 22 108/80 (89) 96 12/13/17 00:02 98.1 102 35 105/78 (87) 94 12/13/17 00:00 102 12/12/17 23:00 122 26 106/80 (89) 92 12/12/17 22:01 106 11 97/78 (84) 96 12/12/17 22:00 110 12/12/17 21:00 126 25 107/89 (95) 98 12/12/17 21:00 104 12/12/17 20:00 122 12/12/17 20:00 98.0 136 32 104/73 (83) 96 12/12/17 19:00 136 27 112/79 (90) 96 12/12/17 19:00 138 100/78 (85) 12/12/17 18:00 138 29 119/89 (99) 97 12/12/17 18:00 138 12/12/17 17:30 116 24 96/77 (83) 96 12/12/17 17:00 120 22 101/75 (84) 97 12/12/17 16:30 118 12/12/17 16:30 118 30 106/79 (88) 97 12/12/17 16:00 98.2 120 22 117/75 (89) 96 12/12/17 16:00 120 12/12/17 15:00 116 23 114/65 (81) 96 12/12/17 14:30 114 26 104/65 (78) 96 12/12/17 14:00 128 32 101/76 (84) 92 12/12/17 14:00 128 32 101/76 (84) 92 12/12/17 14:00 128 12/12/17 13:30 116 27 104/67 (79) 99 12/12/17 13:00 138 100/78 (85) 12/12/17 13:00 138 35 100/78 (85) 92 12/12/17 12:00 122 12/12/17 12:00 98.1 122 31 110/73 (85) 95 12/12/17 11:45 116 28 101/64 (76) 94 12/12/17 11:01 114 25 104/81 (89) 95 12/12/17 10:54 96 21 12/12/17 10:01 120 26 121/72 (88) 95 12/12/17 10:00 118 I/O 12/12/17 12/12/17 12/12/17 12/13/17 12/13/17 12/13/17 07:00 15:00 23:00 07:00 15:00 23:00 Intake Total 520 ml 415 ml 100 ml 460 ml Output Total 650 ml 1075 ml 600 ml Balance -130 ml 415 ml -975 ml -140 ml Intake Oral 520 ml 460 ml IV Total 415 ml 100 ml Output Urine Total 650 ml 1075 ml 600 ml # Voids 1 # Bowel Movements 0 1 0 Result Diagram: 12/13/1715 12/13/17614 Objective Remarks GENERAL: NAD, A&Ox3 HEAD: Normocephalic. NECK: Supple, trachea midline. No lymphadenopathy. EYES: No scleral icterus. No injection or drainage. CARDIOVASCULAR: Tachycardic rate and irregularly irregular rhythm without murmurs, gallops, or rubs. RESPIRATORY: Breath sounds equal bilaterally. No accessory muscle use. GASTROINTESTINAL: Abdomen soft, non-tender, nondistended. MUSCULOSKELETAL: No cyanosis, or edema. SKIN: Warm and dry. NEURO: No focal neurological deficitis. A/P Problem List: (1) Septic shock ICD Code: A41.9 - Sepsis, unspecified organism; R65.21 - Severe sepsis with septic shock Status: Acute (2) Afib ICD Code: I48.91 - Unspecified atrial fibrillation Status: Acute (3) Hypotension ICD Code: I95.9 - Hypotension, unspecified Status: Acute (4) UTI (urinary tract infection) ICD Code: N39.0 - Urinary tract infection, site not specified Status: Acute (5) Tachycardia ICD Code: R00.0 - Tachycardia, unspecified Status: Acute (6) Leukocytosis ICD Code: D72.829 - Elevated white blood cell count, unspecified Status: Acute Assessment and Plan 72-year-old male admitted secondary to septic shock related to urinary tract infection. Continue to monitor labs. Plan for void trial tomorrow. Continue physical therapy. Transfer out of ICU, now off pressors. Septic shock Continue IV Levophed Continue to follow in ICU Treatment infections as below Follow blood cultures Urinary tract infection Rocephin Vancomycin Follow urine cultures A. fib RVR RVR may be related to tachycardia from sepsis Patient is a poor candidate for beta owen or diltiazem IV right now due to hypotension Monitor on telemetry for now Treat infection Consider amiodarone if needed Diabetes mellitus type 2 Follow blood sugars Insulin sliding scale Diabetic diet Hyperlipidemia Continue present treatment Follow as an outpatient Hx of HTN Hold BP treatments for now Follow BP Old myocardial infarction CAD Asymptomatic Follow clinically No change to baseline management planned at this point Problem Qualifiers (1) Afib: Qualified Codes: I48.1 - Persistent atrial fibrillation (2) Hypotension: Qualified Codes: I95.9 - Hypotension, unspecified (3) UTI (urinary tract infection): Qualified Codes: N39.0 - Urinary tract infection, site not specified; R31.9 - Hematuria, unspecified (4) Leukocytosis: Qualified Codes: D72.829 - Elevated white blood cell count, unspecified Hector Ureña MD Dec 13, 2017 09:52
[2017-12-13] MEDS: guaiFENesin SOLUTION 200 MG/10 ML CUP PO PRN (13:07)
[2017-12-13] MEDS ORDERED: POTASSIUM CHLORIDE 25 MEQ EFFERVESCENT TAB PO PRN (13:45)
[2017-12-13] MEDS ORDERED: POTASSIUM PHOSPHATE MONOBASIC 500 MG TAB PO PRN (13:45)
[2017-12-13] MEDS ORDERED: POTASSIUM CHLOR 20 MEQ PREMIX 100 ML IV PRN ×2 (13:45)
[2017-12-13] MEDS ORDERED: MAGNESIUM SULFATE INJ 4 GM in SODIUM CHLORIDE 0.9% INJ 92 ML IV PRN (13:45)
[2017-12-13] MEDS ORDERED: POTASSIUM PHOSPHATE INJ 30 MMOL in SODIUM CHLOR 0.9% 250 ML INJ 250 ML IV PRN (13:45)
[2017-12-13] MEDS ORDERED: POTASSIUM CHLOR 40 MEQ PREMIX 100 ML IV PRN ×2 (13:45)
[2017-12-13] MEDS ORDERED: MAGNESIUM SULFATE INJ 2 GM in SODIUM CHLORIDE 0.9% INJ 96 ML IV PRN (13:45)
[2017-12-13] MEDS ORDERED: MAGNESIUM OXIDE 400 MG TAB PO PRN (13:45)
[2017-12-13] MEDS ORDERED: POTASSIUM PHOSPHATE MONOBASIC 500 MG TAB PO/TUBE PRN (13:45)
[2017-12-13] MEDS: SODIUM PHOSPHATE INJ 30 MMOL in SODIUM CHLOR 0.9% 250 ML INJ 240 ML IV PRN (15:30)
--- NOTE | 2017-12-13 16:37 | HHI.CCPN ---
Subjective Remarks/Hospital Course 72-year-old male. The admission 12/09/2017. Date of consultation 12/10. Past medical history include atrial fibrillation on apixaban, sciatica, coronary disease status post myocardial infarctions 5, hypertension, dyslipidemia, diabetes mellitus type 2 and obstructive sleep apnea requiring CPAP. History of CABG 2. Patient presents to [facility] on with a 3 days history of urinary retention. Documentation of prior attempts to self catheterize he is also been feeling bad, with decreased energy and chills. He came in to the emergency department and is found to have urinary retention, fever, and atrial fibrillation with RVR. Urine culture blood cultures have been obtained in the ER. Patient received multiple fluid boluses have been provided in the emergency department and are not providing much long- term benefit in regards to his blood pressure. Patient started on ceftriaxone and vancomycin is currently on a norepinephrine drip at 12 mcg/min. He will require central line placement for vasopressor support and just with antibiotic 12/11: Afebrile. Currently on 4 mcg/min of norepinephrine. Brought in home CPAP currently saturating 94%. Heart rate currently 80s. SUBJECTIVE: 12/12: Afebrile. Remains on 2 mcg/min norepinephrine. HR controlled. Cough controlled. 12/13 No events overnight. Off Levophed. Afebrile Objective Vital Signs Date Time Temp Pulse Resp B/P (MAP) Pulse Ox O2 Delivery O2 Flow Rate FiO2 12/13/17 16:05 98.3 102 107/93 (98) 12/13/17 12:00 30 96 12/13/17 09:30 21 12/13/17 07:40 cpap 1.50 Intake and Output 12/13/17 12/13/17 12/14/17 08:00 16:00 00:00 Intake Total 460 ml Output Total 600 ml Balance -140 ml Result Diagram: 12/13/17 0615 12/13/17 0615 Other Results Laboratory Tests Test 12/13/17 06:15 White Blood Count 6.1 TH/MM3 Red Blood Count 3.92 MIL/MM3 Hemoglobin 10.9 GM/DL Hematocrit 34.2 % Mean Corpuscular Volume 87.3 FL Mean Corpuscular Hemoglobin 27.8 PG Mean Corpuscular Hemoglobin Concent 31.8 % Red Cell Distribution Width 16.8 % Platelet Count 169 TH/MM3 Mean Platelet Volume 9.3 FL Neutrophils (%) (Auto) 70.7 % Lymphocytes (%) (Auto) 14.4 % Monocytes (%) (Auto) 11.8 % Eosinophils (%) (Auto) 2.0 % Basophils (%) (Auto) 1.1 % Neutrophils # (Auto) 4.3 TH/MM3 Lymphocytes # (Auto) 0.9 TH/MM3 Monocytes # (Auto) 0.7 TH/MM3 Eosinophils # (Auto) 0.1 TH/MM3 Basophils # (Auto) 0.1 TH/MM3 CBC Comment DIFF FINAL Differential Comment Blood Urea Nitrogen 24 MG/DL Creatinine 0.86 MG/DL Random Glucose 77 MG/DL Total Protein 6.2 GM/DL Albumin 2.6 GM/DL Calcium Level 8.0 MG/DL Phosphorus Level 1.4 MG/DL Magnesium Level 2.2 MG/DL Alkaline Phosphatase 56 U/L Aspartate Amino Transf (AST/SGOT) 223 U/L Alanine Aminotransferase (ALT/SGPT) 90 U/L Total Bilirubin 1.7 MG/DL Sodium Level 141 MEQ/L Potassium Level 3.9 MEQ/L Chloride Level 107 MEQ/L Carbon Dioxide Level 27.6 MEQ/L Anion Gap 6 MEQ/L Estimat Glomerular Filtration Rate 88 ML/MIN Imaging Last Impressions Chest X-Ray 12/13/17 0600 Signed Impressions: Service Date/Time: November 04:44 - CONCLUSION: Cardiomegaly with mild pulmonary vascular engorgement. Clear lungs. Neftali Reyna Jr., MD Renal Ultrasound 12/10/17 0000 Signed Impressions: Service Date/Time: Sunday, December 10, 2017 10:39 - CONCLUSION: 1. No renal mass or hydronephrosis. Mild ascites. Bladder decompressed by Rangel. Ignacio Lopez MD Objective Remarks GENERAL: 72-year-old male currently resting in bed in no acute distress SKIN: Warm and dry. No rash HEAD: Atraumatic. Normocephalic. EYES: Pupils equal and round. No scleral icterus. No injection or drainage. ENT: No nasal bleeding or discharge. Mucous membranes pink and moist. NECK: Trachea midline. No JVD. Left IJ is clean dry and intact CARDIOVASCULAR: IRR. Intermittently paced. S1, S2. No S4. RESPIRATORY: No accessory muscle use. Clear to auscultation. Breath sounds equal bilaterally. GASTROINTESTINAL: Abdomen soft, non-tender, nondistended. Hepatic and splenic margins not palpable. MUSCULOSKELETAL: Extremities with trace bilateral lower extremity edema NEUROLOGICAL: Awake and alert. No obvious cranial nerve deficits. Motor grossly within normal limits. Five out of 5 muscle strength in the arms and legs. Normal speech. PSYCHIATRIC: Appropriate mood and affect; insight and judgment normal. Date of Insertion: Dec 10, 2017 Line: Central Venous Catheter Location: Internal, Jugular A/P Assessment and Plan Neuro/Psych: Awake and alert Acetaminophen 650 mg p.o. every 6 hours as needed fever Oxycodone/acetaminophen 5/325 tablet every 4 hours as needed pain 1 through 5 Morphine sulfate 2 mg IV every 4 hours. Pain 6-10 CV: Atrial fibrillation with rapid ventricular response History of hypertension Dyslipidemia Coronary artery disease status post CABG 2 Placement of defibrillator CHF - chronic systolic Mod pHTN Monitor HR and BP keep MAP>65mmHg. Off Levophed Limited 2D echocardiogram - LVSF is severely reduced with an estimated ejection fraction less than 20%. Moderately dilated left ventricle. There is global left ventricular dysfunction. [id number] mitral valve regurgitation. Mitral annular calcification is present. Diffuse calcification of the aortic valve. Trace aortic valve regurgitation. There is trace tricuspid valve regurgitation. The estimated pulmonary arterial pressure is 48.2 mmHg. Continue aspirin 81 mg p.o. daily Evaluated by Dr. Salazar, cardiology. Signed off. Received 2 doses of digoxin 0.5 mg at 0830 and 1800 on on 312. Level 2.4 on 12/11 Resp: Obstructive sleep apnea requiring CPAP COntinue with oxygen keep sats >92% Incentive spirometry while awake Albuterol/ipratropium aerosols every 6 hours with albuterol aerosols every 2 hours. Dyspnea Using CPAP at night from home GI: Hypoalbuminemia Elevated TB and AST Monitor LFT's, check US liver Heart healthy/ADA diet Famotidine 20 mg daily for GI prophylaxis Docusate sodium 100 mg twice daily for bowel regimen : BPH? Monitor renal function, electrolytes replacement per protocol. Will need Phos replacement today Endo: Diabetes mellitus type 2 Sliding scale insulin with Novulin R with Accu-Cheks before meals/at bedtime to maintain euglycemia/moderate regimen 4 U SSI past 24 hrs TSH -2.6 Heme: Normocytic anemia Chronic apixaban use Monitor CBC daily. Follow trends Continue apixaban 2.5 mg p.o. twice daily ID: UTI- urine cx: E.coli Abx per ID- On Cefepime and Cipro monitor for signs of infections ( fever, WBC) D/c cefepime if ok with ID. Pertinent cultures 12/09 -blood cultures 2: NGTD 12/09 -urine culture -E.coli MSK: Sciatica PT evaluate and treat Access Left IJ CVL day #3 placed 12/10, d/c central line and place peripheral IV's Prophylaxis -GI -famotidine -DVT -SCD/apixaban provides pharmacological prophylaxis Will sign off and transfer care to [facility] Level 2 Severino Tao MD Dec 13, 2017 16:37
--- NOTE | 2017-12-13 17:26 | HHI.IDPN ---
Note Infectious Disease Note ID coverage. 72 WM with no past h/o UTI or prostate problems- is visiting here from [place] and says he started feeling bad on Sunday with dysuria and incontinence and so came to hosp - found to be in septic shock with hypotension and fast HR. Patient says he feels okay. He is off Levophed. Now off all pressors. He is awake and alert. No fever or chills. Discussed with RN. Allergies: Coded Allergies: MRI PRECAUTION (Verified Allergy, Severe, DEFIBRILLATOR, 12/09/17) PACEMAKER DIFIBRILLATOR, 10/27/17 DML amitriptyline (Verified Allergy, Unknown, 12/09/17) indomethacin (Verified Allergy, Unknown, 12/09/17) meperidine (Verified Allergy, Unknown, 12/09/17) Past Medical History Coronary artery disease Diabetes mellitus type 2 Hypertension Hyperlipidemia Atrial fibrillation Old myocardial infarction 5 Past Surgical History CABG 2 Defibrillator placement Bilateral knee surgeries Right rotator cuff surgery Coronary stents MEDICATIONS: Current Medications Medications (Trade) Dose Ordered Sig/Ruperto Route PRN Reason Start Time Stop Time Status Last Admin Dose Admin Sodium Chloride (NS Flush) 2 ml UNSCH PRN IV FLUSH FLUSH AFTER USING IV ACCESS 12/09/17 15:30 Sodium Chloride (NS Flush) 2 ml BID IV FLUSH 12/09/17 21:00 12/13/17 08:39 Ondansetron HCl (Zofran Inj) 4 mg Q6H PRN IVP NAUSEA OR VOMITING 12/09/17 15:30 Naloxone HCl (Narcan Inj) 0.4 mg UNSCH PRN IV PUSH SEE LABEL COMMENTS 12/09/17 15:30 Miscellaneous Information 1 Q361D XX 12/09/17 15:30 12/09/17 15:30 Chlorhexidine Gluconate (Chlorhexidine 2% Cloth) 3 pack Taper DAILY@04 TOP 12/10/17 04:00 12/06/18 03:59 12/13/17 04:00 Chlorhexidine Gluconate (Chlorhexidine 2% Cloth) 3 pack UNSCH PRN TOP HYGIENIC CARE 12/09/17 15:30 Terbutaline Sulfate (Brethine Inj) 1 mg UNSCH PRN SQ For Extravasation 12/09/17 15:30 Dextrose (D50w (Vial) Inj) 50 ml UNSCH PRN IV PUSH HYPOGLYCEMIA-SEE COMMENTS 12/09/17 16:30 Glucagon (Glucagon Inj) 1 mg UNSCH PRN OTHER HYPOGLYCEMIA-SEE COMMENTS 12/09/17 16:30 Insulin Aspart (NovoLOG SUPPLEMENTAL SCALE) 1 ACHS SLIDING SCALE SQ 12/09/17 17:00 12/11/17 12:00 Apixaban (Eliquis) 2.5 mg BID PO 12/09/17 21:00 12/13/17 08:39 Aspirin (Ecotrin Ec) 81 mg DAILY PO 12/10/17 09:00 12/13/17 08:39 Docusate Sodium (Colace) 100 mg BID PO 12/10/17 09:00 12/12/17 08:10 Sodium Chloride (NS Flush) DAILY IV FLUSH 12/10/17 09:00 12/12/17 08:11 Sodium Chloride (NS Flush) UNSCH PRN IV FLUSH SEE PROTOCOL 12/10/17 08:00 12/12/17 08:11 Cefepime HCl 1000 mg/Sodium Chloride 100 ml @ 200 mls/hr Q12H IV 12/10/17 08:00 12/13/17 08:36 Sodium Chloride (NS Flush) 2 ml UNSCH PRN IV FLUSH FLUSH AFTER USING IV ACCESS 12/10/17 08:00 Sodium Chloride (NS Flush) 2 ml BID IV FLUSH 12/10/17 09:00 12/12/17 20:06 Acetaminophen (Tylenol) 650 mg Q6H PRN PO FEVER >100F 12/10/17 08:00 Oxycodone/ Acetaminophen (Percocet 5-325 Mg) 1 tab Q4H PRN PO PAIN SCALE 1 TO 5 12/10/17 08:00 Morphine Sulfate (Morphine Inj) 2 mg Q2H PRN IV PUSH PAIN SCALE 6 TO 10 12/10/17 08:00 Albuterol/ Ipratropium (Duoneb Neb) 1 ampule Q6HR NEB INH 12/10/17 10:00 12/11/17 04:22 Albuterol Sulfate (Albuterol Neb) 2.5 mg Q2HR NEB PRN INH SOB/WHEEZING 12/10/17 08:00 Phenazopyridine HCl (Pyridium) 100 mg Q8HR PO 12/10/17 22:00 12/13/17 13:04 Famotidine (Pepcid) 20 mg Q12HR PO 12/11/17 21:00 12/13/17 08:39 Benzocaine/Menthol (Chloraseptic Juve) 1 lozenge UNSCH PRN BUCCAL ITCHING THROAT 12/11/17 15:30 12/12/17 23:09 Guaifenesin (Robitussin Liq) 200 mg Q4H PRN PO COUGH 12/11/17 15:30 12/13/17 13:07 Ciprofloxacin (Cipro) 500 mg Q12HR PO 12/12/17 21:00 12/13/17 08:39 Potassium Chloride 100 ml @ 50 mls/hr Q2H PRN IV For Potassium 2.8 - 3.2 mEq/L 12/13/17 13:45 Potassium Chloride 100 ml @ 50 mls/hr Q2H PRN IV For Potassium 2.8 - 3.2 mEq/L 12/13/17 13:45 Potassium Bicarb/ Potassium Chloride (K-Lyte Cl Eff) 50 meq UNSCH PRN PO For Potassium 3.3 - 3.5 mEq/L 12/13/17 13:45 Potassium Chloride 100 ml @ 25 mls/hr UNSCH PRN IV For Potassium 3.3 - 3.5 mEq/L 12/13/17 13:45 Potassium Chloride 100 ml @ 50 mls/hr Q2H PRN IV For Potassium 3.3 - 3.5 mEq/L 12/13/17 13:45 Magnesium Sulfate 4 gm/Sodium Chloride 100 ml @ 50 mls/hr UNSCH PRN IV For Magnesium 0.9 - 1.1 mg/dL 12/13/17 13:45 Magnesium Oxide (Mag-Ox) 800 mg UNSCH PRN PO For Magnesium 1.2 - 1.6 mg/dL 12/13/17 13:45 Magnesium Sulfate 2 gm/Sodium Chloride 100 ml @ 50 mls/hr UNSCH PRN IV For Magnesium 1.2 - 1.6 mg/dL 12/13/17 13:45 Potassium Phosphate (K-Phos) 2,000 mg Q4H PRN PO For Phosphorus < 2.5 mg/dL 12/13/17 13:45 Sodium Phosphate 30 mmol/Sodium Chloride 250 ml @ 42 mls/hr UNSCH PRN IV For Phosphorus < 2.5 mg/dL 12/13/17 13:45 12/13/17 15:30 Potassium Phosphate (K-Phos) 2,000 mg UNSCH PRN PO/TUBE SEE LABEL COMMENTS 12/13/17 13:45 Potassium Phosphate 30 mmol/ Sodium Chloride 260 ml @ 42 mls/hr UNSCH PRN IV SEE LABEL COMMENTS 12/13/17 13:45 Physical Exam Vital Signs Date Time Temp Pulse Resp B/P (MAP) Pulse Ox O2 Delivery O2 Flow Rate FiO2 12/13/17 16:05 98.3 102 107/93 (98) 12/13/17 15:00 124 12/13/17 12:00 98.4 134 30 131/81 (98) 96 12/13/17 10:00 110 21 102/73 (83) 95 12/13/17 10:00 110 12/13/17 09:30 98 21 12/13/17 09:04 98.1 124 28 128/75 (92) 97 12/13/17 09:02 142 12/13/17 08:00 80 12/13/17 07:40 98 cpap 1.50 12/13/17 07:00 76 16 100/69 (79) 97 12/13/17 06:00 88 18 104/77 (86) 97 12/13/17 06:00 88 12/13/17 05:00 85 18 100/80 (87) 97 12/13/17 04:00 92 12/13/17 04:00 98.0 92 19 97/80 (86) 96 12/13/17 03:00 92 20 110/78 (89) 97 12/13/17 02:00 104 12/13/17 02:00 104 24 102/75 (84) 96 12/13/17 01:00 138 100/78 (85) 12/13/17 01:00 101 22 108/80 (89) 96 12/13/17 00:02 98.1 102 35 105/78 (87) 94 12/13/17 00:00 102 12/12/17 23:00 122 26 106/80 (89) 92 12/12/17 22:01 106 11 97/78 (84) 96 12/12/17 22:00 110 12/12/17 21:00 126 25 107/89 (95) 98 12/12/17 21:00 104 12/12/17 20:00 122 12/12/17 20:00 98.0 136 32 104/73 (83) 96 12/12/17 19:00 136 27 112/79 (90) 96 12/12/17 19:00 138 100/78 (85) 12/12/17 18:00 138 29 119/89 (99) 97 12/12/17 18:00 138 12/12/17 17:30 116 24 96/77 (83) 96 Laboratory Tests Test 12/12/17 05:55 12/13/17 06:15 White Blood Count 5.9 TH/MM3 6.1 TH/MM3 Red Blood Count 3.81 MIL/MM3 3.92 MIL/MM3 Hemoglobin 11.5 GM/DL 10.9 GM/DL Hematocrit 33.3 % 34.2 % Mean Corpuscular Volume 87.2 FL 87.3 FL Mean Corpuscular Hemoglobin 30.1 PG 27.8 PG Mean Corpuscular Hemoglobin Concent 34.5 % 31.8 % Red Cell Distribution Width 17.0 % 16.8 % Platelet Count 159 TH/MM3 169 TH/MM3 Mean Platelet Volume 9.4 FL 9.3 FL Neutrophils (%) (Auto) 72.6 % 70.7 % Lymphocytes (%) (Auto) 14.7 % 14.4 % Monocytes (%) (Auto) 10.3 % 11.8 % Eosinophils (%) (Auto) 1.9 % 2.0 % Basophils (%) (Auto) 0.5 % 1.1 % Neutrophils # (Auto) 4.3 TH/MM3 4.3 TH/MM3 Lymphocytes # (Auto) 0.9 TH/MM3 0.9 TH/MM3 Monocytes # (Auto) 0.6 TH/MM3 0.7 TH/MM3 Eosinophils # (Auto) 0.1 TH/MM3 0.1 TH/MM3 Basophils # (Auto) 0.0 TH/MM3 0.1 TH/MM3 CBC Comment DIFF FINAL DIFF FINAL Differential Comment Laboratory Tests Test 12/12/17 05:55 12/13/17 06:15 Blood Urea Nitrogen 28 MG/DL 24 MG/DL Creatinine 0.90 MG/DL 0.86 MG/DL Random Glucose 96 MG/DL 77 MG/DL Total Protein 6.5 GM/DL 6.2 GM/DL Albumin 2.7 GM/DL 2.6 GM/DL Calcium Level 8.2 MG/DL 8.0 MG/DL Phosphorus Level 1.8 MG/DL 1.4 MG/DL Magnesium Level 2.1 MG/DL 2.2 MG/DL Alkaline Phosphatase 53 U/L 56 U/L Aspartate Amino Transf (AST/SGOT) 62 U/L 223 U/L Alanine Aminotransferase (ALT/SGPT) 34 U/L 90 U/L Total Bilirubin 1.7 MG/DL 1.7 MG/DL Sodium Level 138 MEQ/L 141 MEQ/L Potassium Level 4.0 MEQ/L 3.9 MEQ/L Chloride Level 105 MEQ/L 107 MEQ/L Carbon Dioxide Level 26.4 MEQ/L 27.6 MEQ/L Anion Gap 7 MEQ/L 6 MEQ/L Estimat Glomerular Filtration Rate 83 ML/MIN 88 ML/MIN IMAGING: Chest X-Ray 12/13/17 0600 Signed Impressions: Service Date/Time: November 04:44 - CONCLUSION: Cardiomegaly with mild pulmonary vascular engorgement. Clear lungs. Neftali Reyna Jr., MD Chest X-Ray 12/11/17 0600 Signed Impressions: Service Date/Time: Monday, December 11, 2017 06:22 - CONCLUSION: Mild cardiomegaly. Clear lungs. Neftali Reyna Jr., MD Renal Ultrasound 12/10/17 0000 Signed Impressions: Service Date/Time: Sunday, December 10, 2017 10:39 - CONCLUSION: 1. No renal mass or hydronephrosis. Mild ascites. Bladder decompressed by Rangel. Ignacio Lopez MD Physical Exam GENERAL: No acute distress. HEENT: Reactive to light. No icterus. Moist oral mucosa. NECK: Trachea midline. Supple without adenopathy. CARDIOVASCULAR: Irregular rate and rhythm with soft systolic murmurs,No gallops , or rubs. RESPIRATORY: Clear to auscultation. Breath sounds equal bilaterally. No rhonchi. GASTROINTESTINAL: Abdomen soft, non-tender, nondistended. MUSCULOSKELETAL: Extremities without clubbing, cyanosis, or edema. NEUROLOGICAL: Awake and alert. Nonfocal. SKIN: No rash. Warm and moist. ASSESSMENT: 1. Septic shock. Improved. 2. Urinary tract infection due to E. coli. 3. Leukocytosis improved 4. Acute renal failure improved 5. Atrial fibrillation RECOMMENDATIONS: 1. Continue Ciprofloxacin. 2. Discontinue cefepime. 3. Monitor temperature. 4. Monitor clinical status. If he remains clinically stable, with a ciprofloxacin can be switched to oral. Continue to treat 7 more days. His LFTs are elevated. If it remains elevated we may need to consider changing the ciprofloxacin to cefuroxime. Brayden Vogt MD Dec 13, 2017 17:26
[2017-12-13] MEDS ORDERED: METOPROLOL TARTRATE 5 MG/5 ML VIAL IV PUSH ONE (21:00)
[2017-12-14] VITALS (21 sets, daily range): BP systolic 100–124; BP diastolic 76–96; PULSE 112–142; RESP 19–32; TEMP 97.9–98.4; O2SAT 92–98
[2017-12-14] MEDS ORDERED: METOPROLOL TARTRATE 5 MG/5 ML VIAL IV PUSH ONE (03:30)
[2017-12-14] MEDS: CHLORHEXIDINE GLUCONATE 2 % 1 PACK (2 CLOTHS) TOP SCH (03:53)
[2017-12-14] MEDS: RESP: ALBUTEROL 2.5 MG/IPRATROPIUM 0.5 MG NEB (SCH) INH (04:00)
[2017-12-14 04:43] LABS: AUTOMATED NEUTROPHIL # 4.9 TH/MM3 (1.8-7.7); BASOPHIL # 0.1 TH/MM3 (0-0.2); BASOPHIL % 1.6 % (0.0-2.0); EOSINOPHIL # 0.1 TH/MM3 (0-0.4); EOSINOPHIL % 1.8 % (0.0-4.0); HEMATOCRIT 35.9 % (39.0-51.0); LYMPH % 18.3 % (9.0-44.0); LYMPHOCYTE # 1.3 TH/MM3 (1.0-4.8); MEAN CELL VOLUME 87.7 FL (80.0-100.0); MEAN CORPUSCULAR HEMOGLOBIN 29.4 PG (27.0-34.0); MEAN CORPUSCULAR HGB CONC 33.5 % (32.0-36.0); MONO % 11.3 % (0.0-8.0); MONOCYTE # 0.8 TH/MM3 (0-0.9); PLATELET COUNT 198 TH/MM3 (150-450); RED BLOOD COUNT 4.09 MIL/MM3 (4.50-5.90); RED CELL DISTRIBUTION WIDTH 16.8 % (11.6-17.2); WHITE BLOOD COUNT 7.2 TH/MM3 (4.0-11.0)
[2017-12-14 04:50] LABS: CHLORIDE 108 MEQ/L (98-107); SODIUM (NA) 141 MEQ/L (136-145)
[2017-12-14 04:57] LABS: ALBUMIN 2.8 GM/DL (3.4-5.0); BICARBONATE 23.5 MEQ/L (21.0-32.0); BLOOD UREA NITROGEN 25 MG/DL (7-18); CALCIUM 8.3 MG/DL (8.5-10.1); GLUCOSE,RANDOM 82 MG/DL (74-106); MAGNESIUM 2.1 MG/DL (1.5-2.5)
[2017-12-14 04:58] LABS: ALT (GPT) 142 U/L (12-78); AST (GOT) 288 U/L (15-37)
[2017-12-14 05:00] LABS: GLOMERULAR FILTRATION RATE 74 ML/MIN (>89); TOTAL BILIRUBIN ADULT 1.6 MG/DL (0.2-1.0); TOTAL PROTEIN 6.6 GM/DL (6.4-8.2)
[2017-12-14 05:01] LABS: ALKALINE PHOSPHATASE 73 U/L (45-117); PHOSPHORUS 2.2 MG/DL (2.5-4.9)
[2017-12-14] MEDS: PHENAZOPYRIDINE HCL 100 MG TAB PO SCH ×3 (05:39→20:18)
[2017-12-14] MEDS: INSULIN ASPART SUPPLEMENTAL SCALE SQ SCH ×4 (08:00→20:18)
[2017-12-14] MEDS: CIPROFLOXACIN 500 MG TAB PO SCH (08:59)
[2017-12-14] MEDS: FAMOTIDINE 20 MG TAB PO SCH ×2 (08:59→20:18)
[2017-12-14] MEDS: APIXABAN 2.5 MG TABLET PO SCH ×2 (08:59→20:18)
[2017-12-14] MEDS: ASPIRIN EC 81 MG TABEC PO SCH (08:59)
[2017-12-14] MEDS: SODIUM CHLORIDE 0.9% FLUSH 10 ML FLUSH IV FLUSH SCH ×5 (08:59→20:17)
[2017-12-14] MEDS: DOCUSATE SODIUM 100 MG CAP PO SCH ×2 (09:00→20:17)
[2017-12-14] MEDS: guaiFENesin SOLUTION 200 MG/10 ML CUP PO PRN (10:11)
--- NOTE | 2017-12-14 10:52 | RADRPT ---
EXAM DATE/TIME: 12/14/2017 09:21 [place] COMPARISON: US KIDNEY/RENAL/BLADDER, December 10, 2017, 10:39. INDICATIONS : Increased lab values. MEDICAL HISTORY : Hypercholesterolemia. Hypertension. Atrial fibrillation. Diabetes. SURGICAL HISTORY : Pacemaker. Coronary stent. Cardiac catheterization. Double bypass. Right rotator cuff. Bilateral knee arthroscopy. ENCOUNTER: Initial ACUITY: 1 day PAIN SCORE: 0/10 LOCATION: Abdomen. MEASUREMENTS: LIVER: 19.2 cm length COMMON DUCT: 6 mm RIGHT KIDNEY: 12.3 x 6.7 x 5.3 cm SPLEEN: 9.0 cm length FINDINGS: LIVER: The liver is enlarged. There is heterogeneous echotexture and mildly increased echogenicity. Study wo uld suggest fatty infiltration. No focal masses seen. No intrahepatic biliary duct dilation is seen. There is ascites seen in the upper abdomen. COMMON DUCT: No intraluminal mass or stone visualized. GALLBLADDER: There are several small echogenic stones seen in the dependent portion of the gallbladder. There is m ild gallbladder wall thickening. PANCREAS: The visualized portions are within normal limits. RIGHT KIDNEY: No hydronephrosis, stone or mass. SPLEEN: No focal lesion. CONCLUSION: 1. There is a small amount of ascites in the upper abdomen. 2. Enlarged liver with heterogeneous echotexture suggesting fatty infiltration. No focal mass seen. 3. There are small echogenic stones seen in the dependent portion of the gallbladder. There is a mild gallbladder wall thickening. The gallbladder wall thickening is not an unexpected finding with a sma ll amount of ascites in the upper abdomen. Hector Abdullahi MD on December 14, 2017 at 10:37 Board Certified Radiologist. This report was verified electronically.
--- NOTE | 2017-12-14 15:42 | HHI.IDPN ---
Note Infectious Disease Note ID coverage. 72 WM with no past h/o UTI or prostate problems- is visiting here from [place] and says he started feeling bad on Lauri with dysuria and incontinence and so came to hosp - found to be in septic shock with hypotension and fast HR. Patient says he feels okay. Notes that he had frequent diarrhea today. States that he had 5 stools. He is awake and alert. Denies fever or chills. LFTs remain elevated. He denies abdominal pain. Ultrasound of the abdomen noted. Allergies: Coded Allergies: MRI PRECAUTION (Verified Allergy, Severe, DEFIBRILLATOR, 12/09/17) PACEMAKER DIFIBRILLATOR, 10/27/17 DML amitriptyline (Verified Allergy, Unknown, 12/09/17) indomethacin (Verified Allergy, Unknown, 12/09/17) meperidine (Verified Allergy, Unknown, 12/09/17) Past Medical History Coronary artery disease Diabetes mellitus type 2 Hypertension Hyperlipidemia Atrial fibrillation Old myocardial infarction 5 Past Surgical History CABG 2 Defibrillator placement Bilateral knee surgeries Right rotator cuff surgery Coronary stents MEDICATIONS: Physical Exam Vital Signs Date Time Temp Pulse Resp B/P (MAP) Pulse Ox O2 Delivery O2 Flow Rate FiO2 12/14/17 15:00 119 12/14/17 12:01 134 26 100/78 (85) 96 12/14/17 10:18 94 21 12/14/17 09:01 98.1 138 30 112/83 (93) 95 12/14/17 08:01 136 29 121/93 (102) 98 12/14/17 07:01 124 22 120/76 (91) 97 12/14/17 07:00 128 12/14/17 04:13 98.4 112 23 110/83 (92) 92 12/14/17 03:01 116 23 119/84 (96) 97 12/14/17 02:01 126 28 108/84 (92) 94 12/14/17 01:01 118 19 113/92 (99) 97 12/14/17 00:15 118 23 116/86 (96) 97 12/14/17 00:00 116 20 119/82 (94) 97 12/13/17 23:21 122 22 118/91 (100) 95 12/13/17 23:00 120 12/13/17 23:00 128 26 112/88 (96) 94 12/13/17 22:00 128 26 111/89 (96) 96 12/13/17 22:00 97 2.00 12/13/17 21:00 126 36 90/76 (81) 12/13/17 20:30 138 28 110/83 (92) 96 12/13/17 19:44 97.9 141 22 113/81 (92) 97 12/13/17 16:05 98.3 102 107/93 (98) Laboratory Tests Test 12/13/17 06:15 12/14/17 04:26 White Blood Count 6.1 TH/MM3 7.2 TH/MM3 Red Blood Count 3.92 MIL/MM3 4.09 MIL/MM3 Hemoglobin 10.9 GM/DL 12.0 GM/DL Hematocrit 34.2 % 35.9 % Mean Corpuscular Volume 87.3 FL 87.7 FL Mean Corpuscular Hemoglobin 27.8 PG 29.4 PG Mean Corpuscular Hemoglobin Concent 31.8 % 33.5 % Red Cell Distribution Width 16.8 % 16.8 % Platelet Count 169 TH/MM3 198 TH/MM3 Mean Platelet Volume 9.3 FL 9.0 FL Neutrophils (%) (Auto) 70.7 % 67.0 % Lymphocytes (%) (Auto) 14.4 % 18.3 % Monocytes (%) (Auto) 11.8 % 11.3 % Eosinophils (%) (Auto) 2.0 % 1.8 % Basophils (%) (Auto) 1.1 % 1.6 % Neutrophils # (Auto) 4.3 TH/MM3 4.9 TH/MM3 Lymphocytes # (Auto) 0.9 TH/MM3 1.3 TH/MM3 Monocytes # (Auto) 0.7 TH/MM3 0.8 TH/MM3 Eosinophils # (Auto) 0.1 TH/MM3 0.1 TH/MM3 Basophils # (Auto) 0.1 TH/MM3 0.1 TH/MM3 CBC Comment DIFF FINAL DIFF FINAL Differential Comment Laboratory Tests Test 12/13/17 06:15 12/14/17 04:26 Blood Urea Nitrogen 24 MG/DL 25 MG/DL Creatinine 0.86 MG/DL 1.00 MG/DL Random Glucose 77 MG/DL 82 MG/DL Total Protein 6.2 GM/DL 6.6 GM/DL Albumin 2.6 GM/DL 2.8 GM/DL Calcium Level 8.0 MG/DL 8.3 MG/DL Phosphorus Level 1.4 MG/DL 2.2 MG/DL Magnesium Level 2.2 MG/DL 2.1 MG/DL Alkaline Phosphatase 56 U/L 73 U/L Aspartate Amino Transf (AST/SGOT) 223 U/L 288 U/L Alanine Aminotransferase (ALT/SGPT) 90 U/L 142 U/L Total Bilirubin 1.7 MG/DL 1.6 MG/DL Sodium Level 141 MEQ/L 141 MEQ/L Potassium Level 3.9 MEQ/L 4.1 MEQ/L Chloride Level 107 MEQ/L 108 MEQ/L Carbon Dioxide Level 27.6 MEQ/L 23.5 MEQ/L Anion Gap 6 MEQ/L 10 MEQ/L Estimat Glomerular Filtration Rate 88 ML/MIN 74 ML/MIN IMAGING: Last 48 hours Impressions Liver Ultrasound 12/14/17 0000 Signed Impressions: Service Date/Time: Thursday, December 14, 2017 09:21 - CONCLUSION: 1. There is a small amount of ascites in the upper abdomen. 2. Enlarged liver with heterogeneous echotexture suggesting fatty infiltration. No focal mass seen. 3. There are small echogenic stones seen in the dependent portion of the gallbladder. There is a mild gallbladder wall thickening. The gallbladder wall thickening is not an unexpected finding with a small amount of ascites in the upper abdomen. Hector Abdullahi MD Chest X-Ray 12/13/17 0600 Signed Impressions: Service Date/Time: November 04:44 - CONCLUSION: Cardiomegaly with mild pulmonary vascular engorgement. Clear lungs. Neftali Reyna Jr., MD Chest X-Ray 12/11/17 0600 Signed Impressions: Service Date/Time: Monday, December 11, 2017 06:22 - CONCLUSION: Mild cardiomegaly. Clear lungs. Neftali Reyna Jr., MD Renal Ultrasound 12/10/17 0000 Signed Impressions: Service Date/Time: Sunday, December 10, 2017 10:39 - CONCLUSION: 1. No renal mass or hydronephrosis. Mild ascites. Bladder decompressed by Rangel. Ignacio Lopez MD Physical Exam GENERAL: No acute distress. HEENT: Reactive to light. Extraocular movements intact. No icterus. Moist oral mucosa. NECK: Trachea midline. Supple without adenopathy. CARDIOVASCULAR: Irregular rate and rhythm with soft systolic murmurs, rubs or gallops. RESPIRATORY: Clear to auscultation. Breath sounds equal bilaterally. No rhonchi. GASTROINTESTINAL: Abdomen soft, non-tender, nondistended. MUSCULOSKELETAL: Extremities without clubbing, cyanosis, 1+ edema at the legs. NEUROLOGICAL: Awake and alert. Nonfocal. SKIN: No rash. Warm and moist. ASSESSMENT: 1. Septic shock. Improved. 2. Urinary tract infection due to E. coli. 3. Leukocytosis improved 4. Acute renal failure improved 5. Atrial fibrillation 6. Elevated liver function test. Patient has enlarged liver on ultrasound. 7. Diarrhea. Probable antibiotic induced. Rule out C. difficile. RECOMMENDATIONS: 1. Stop ciprofloxacin and monitor without antibiotics. 2. Stools for C. difficile toxin PCR. 3. Monitor temperature. 4. Monitor clinical status. 5. Follow-up with liver function tests. If C. difficile test is positive he will need to be started on oral antibiotic treatment. Brayden Vogt MD Dec 14, 2017 15:42
[2017-12-14] MEDS: BENZOCAINE 6 MG/MENTHOL 10 MG LOZENGE BUCCAL PRN (16:09)
--- NOTE | 2017-12-14 17:15 | HHI.PR ---
Subjective Remarks Catheter was leaking overnight. Catheter removed. Patient has been voiding since. Anxiety present today. Objective Vital Signs Date Time Temp Pulse Resp B/P (MAP) Pulse Ox O2 Delivery O2 Flow Rate FiO2 12/14/17 15:30 126 20 97 12/14/17 15:01 132 25 119/96 (104) 97 12/14/17 15:00 119 12/14/17 13:01 138 24 111/86 (94) 97 12/14/17 12:01 134 26 100/78 (85) 96 12/14/17 10:18 94 21 12/14/17 09:01 98.1 138 30 112/83 (93) 95 12/14/17 08:01 136 29 121/93 (102) 98 12/14/17 07:01 124 22 120/76 (91) 97 12/14/17 07:00 128 12/14/17 04:13 98.4 112 23 110/83 (92) 92 12/14/17 03:01 116 23 119/84 (96) 97 12/14/17 02:01 126 28 108/84 (92) 94 12/14/17 01:01 118 19 113/92 (99) 97 12/14/17 00:15 118 23 116/86 (96) 97 12/14/17 00:00 116 20 119/82 (94) 97 12/13/17 23:21 122 22 118/91 (100) 95 12/13/17 23:00 120 12/13/17 23:00 128 26 112/88 (96) 94 12/13/17 22:00 128 26 111/89 (96) 96 12/13/17 22:00 97 2.00 12/13/17 21:00 126 36 90/76 (81) 12/13/17 20:30 138 28 110/83 (92) 96 12/13/17 19:44 97.9 141 22 113/81 (92) 97 I/O 12/13/17 12/13/17 12/13/17 12/14/17 12/14/17 12/14/17 07:00 15:00 23:00 07:00 15:00 23:00 Intake Total 460 ml Output Total 600 ml 650 ml 400 ml Balance -140 ml -650 ml -400 ml Intake Oral 460 ml Output Urine Total 600 ml 650 ml 400 ml # Voids 1 # Bowel Movements 0 1 Result Diagram: 12/14/176 12/14/17 0426 Objective Remarks GENERAL: NAD, A&Ox3 HEAD: Normocephalic. NECK: Supple, trachea midline. No lymphadenopathy. EYES: No scleral icterus. No injection or drainage. CARDIOVASCULAR: Tachycardic rate and irregularly irregular rhythm without murmurs, gallops, or rubs. RESPIRATORY: Breath sounds equal bilaterally. No accessory muscle use. GASTROINTESTINAL: Abdomen soft, non-tender, nondistended. MUSCULOSKELETAL: No cyanosis, or edema. SKIN: Warm and dry. NEURO: No focal neurological deficitis. A/P Problem List: (1) Septic shock ICD Code: A41.9 - Sepsis, unspecified organism; R65.21 - Severe sepsis with septic shock Status: Acute (2) Afib ICD Code: I48.91 - Unspecified atrial fibrillation Status: Acute (3) Hypotension ICD Code: I95.9 - Hypotension, unspecified Status: Acute (4) UTI (urinary tract infection) ICD Code: N39.0 - Urinary tract infection, site not specified Status: Acute (5) Tachycardia ICD Code: R00.0 - Tachycardia, unspecified Status: Acute (6) Leukocytosis ICD Code: D72.829 - Elevated white blood cell count, unspecified Status: Acute Assessment and Plan 72-year-old male admitted secondary to septic shock related to urinary tract infection. Begin anxiety treatment. Catheter removed. Continue physical therapy. Continue antibiotic treatments. Monitor for improvement prior to discharge. Septic shock Continue IV Levophed Continue to follow in ICU Treatment infections as below Follow blood cultures Urinary tract infection Rocephin Vancomycin Follow urine cultures A. fib RVR RVR may be related to tachycardia from sepsis Patient is a poor candidate for beta owen or diltiazem IV right now due to hypotension Monitor on telemetry for now Treat infection Consider amiodarone if needed Diabetes mellitus type 2 Follow blood sugars Insulin sliding scale Diabetic diet Hyperlipidemia Continue present treatment Follow as an outpatient Hx of HTN Hold BP treatments for now Follow BP Old myocardial infarction CAD Asymptomatic Follow clinically No change to baseline management planned at this point Problem Qualifiers (1) Afib: Qualified Codes: I48.1 - Persistent atrial fibrillation (2) Hypotension: Qualified Codes: I95.9 - Hypotension, unspecified (3) UTI (urinary tract infection): Qualified Codes: N39.0 - Urinary tract infection, site not specified; R31.9 - Hematuria, unspecified (4) Leukocytosis: Qualified Codes: D72.829 - Elevated white blood cell count, unspecified Hector Ureña MD Dec 14, 2017 17:15
[2017-12-14] MEDS: ALPRAZolam 0.25 MG TAB PO PRN (17:27)
[2017-12-14] MEDS ORDERED: FUROSEMIDE 40 MG/4 ML VIAL IV PUSH ONE (17:30)
[2017-12-15] VITALS (19 sets, daily range): BP systolic 97–133; BP diastolic 72–90; PULSE 112–146; RESP 20–42; TEMP 96.2–98.2; O2SAT 84–99
[2017-12-15] MEDS: CHLORHEXIDINE GLUCONATE 2 % 1 PACK (2 CLOTHS) TOP SCH (04:00)
[2017-12-15] MEDS: PHENAZOPYRIDINE HCL 100 MG TAB PO SCH ×3 (05:16→19:44)
[2017-12-15] MEDS: ALPRAZolam 0.25 MG TAB PO PRN ×2 (05:16→19:44)
[2017-12-15 05:35] LABS: AUTOMATED NEUTROPHIL # 4.4 TH/MM3 (1.8-7.7); BASOPHIL # 0.1 TH/MM3 (0-0.2); EOSINOPHIL # 0.2 TH/MM3 (0-0.4); HEMOGLOBIN 12.1 GM/DL (13.0-17.0); LYMPH % 17.7 % (9.0-44.0); LYMPHOCYTE # 1.2 TH/MM3 (1.0-4.8); MEAN CELL VOLUME 88.1 FL (80.0-100.0); MEAN CORPUSCULAR HEMOGLOBIN 28.7 PG (27.0-34.0); MEAN CORPUSCULAR HGB CONC 32.6 % (32.0-36.0); MONO % 13.3 % (0.0-8.0); MONOCYTE # 0.9 TH/MM3 (0-0.9); PLATELET COUNT 231 TH/MM3 (150-450); RED CELL DISTRIBUTION WIDTH 16.8 % (11.6-17.2); WHITE BLOOD COUNT 6.8 TH/MM3 (4.0-11.0)
[2017-12-15 05:45] LABS: CHLORIDE 107 MEQ/L (98-107); SODIUM (NA) 141 MEQ/L (136-145)
[2017-12-15 05:48] LABS: CALCIUM 8.2 MG/DL (8.5-10.1)
[2017-12-15 05:49] LABS: ALBUMIN 2.8 GM/DL (3.4-5.0); BICARBONATE 25.9 MEQ/L (21.0-32.0); BLOOD UREA NITROGEN 30 MG/DL (7-18); GLUCOSE,RANDOM 85 MG/DL (74-106)
[2017-12-15 05:52] LABS: ALT (GPT) 207 U/L (12-78); AST (GOT) 395 U/L (15-37); GLOMERULAR FILTRATION RATE 66 ML/MIN (>89)
[2017-12-15 05:53] LABS: TOTAL BILIRUBIN ADULT 1.7 MG/DL (0.2-1.0); TOTAL PROTEIN 6.6 GM/DL (6.4-8.2)
[2017-12-15 05:55] LABS: ALKALINE PHOSPHATASE 80 U/L (45-117)
[2017-12-15] MEDS: DOCUSATE SODIUM 100 MG CAP PO SCH ×2 (07:19→19:44)
[2017-12-15] MEDS: INSULIN ASPART SUPPLEMENTAL SCALE SQ SCH ×4 (08:00→20:02)
[2017-12-15] MEDS: ASPIRIN EC 81 MG TABEC PO SCH (08:22)
[2017-12-15] MEDS: APIXABAN 2.5 MG TABLET PO SCH ×2 (08:22→19:45)
[2017-12-15] MEDS: FAMOTIDINE 20 MG TAB PO SCH ×2 (08:22→19:45)
[2017-12-15] MEDS: FUROSEMIDE 20 MG TAB PO SCH ×2 (08:22→15:19)
[2017-12-15] MEDS: SODIUM CHLORIDE 0.9% FLUSH 10 ML FLUSH IV FLUSH SCH ×5 (08:23→19:44)
[2017-12-15] MEDS: POTASSIUM CHLORIDE 20 MEQ CONTROLLED RELEASE TAB PO SCH (09:03)
--- NOTE | 2017-12-15 11:21 | HHI.PR ---
Subjective Remarks Patient doing well with catheter removal. Strength is improving slowly. He may need a fdc facility at discharge. For now his liver function tests continue to trend upwards. This led to monitor. Etiology may be related to previous septic shock, his diarrhea may have been related to this also. He says his diarrhea has improved. C. difficile testing pending. Potentially LFT elevation contributing antibiotics have been discontinued 2 days ago. Objective Vital Signs Date Time Temp Pulse Resp B/P (MAP) Pulse Ox O2 Delivery O2 Flow Rate FiO2 12/15/17 04:01 96.2 112 20 133/72 (92) 99 12/15/17 04:00 126 12/15/17 00:04 146 42 116/90 (99) 12/15/17 00:00 146 12/14/17 21:03 97 Nasal Cannula 3.00 12/14/17 20:40 97.9 134 32 116/80 (92) 97 12/14/17 20:00 142 12/14/17 18:01 138 26 113/88 (96) 12/14/17 17:01 136 25 124/83 (97) 95 12/14/17 15:30 126 20 97 12/14/17 15:01 132 25 119/96 (104) 97 12/14/17 15:00 119 12/14/17 13:01 138 24 111/86 (94) 97 12/14/17 12:01 134 26 100/78 (85) 96 I/O 12/14/17 12/14/17 12/14/17 12/15/17 12/15/17 12/15/17 06:59 14:59 22:59 06:59 14:59 22:59 Intake Total 360 ml Output Total 400 ml 550 ml Balance -400 ml 360 ml -550 ml Intake Oral 360 ml Output Urine Total 400 ml 550 ml # Voids 4 # Bowel Movements 16 6 Result Diagram: 12/15/17 0506 12/15/17 0506 Objective Remarks GENERAL: NAD, A&Ox3 HEAD: Normocephalic. NECK: Supple, trachea midline. No lymphadenopathy. EYES: No scleral icterus. No injection or drainage. CARDIOVASCULAR: Tachycardic rate and irregularly irregular rhythm without murmurs, gallops, or rubs. RESPIRATORY: Breath sounds equal bilaterally. No accessory muscle use. GASTROINTESTINAL: Abdomen soft, non-tender, nondistended. MUSCULOSKELETAL: No cyanosis, or edema. SKIN: Warm and dry. NEURO: No focal neurological deficitis. A/P Problem List: (1) Septic shock ICD Code: A41.9 - Sepsis, unspecified organism; R65.21 - Severe sepsis with septic shock Status: Acute (2) Afib ICD Code: I48.91 - Unspecified atrial fibrillation Status: Acute (3) Hypotension ICD Code: I95.9 - Hypotension, unspecified Status: Acute (4) UTI (urinary tract infection) ICD Code: N39.0 - Urinary tract infection, site not specified Status: Acute (5) Tachycardia ICD Code: R00.0 - Tachycardia, unspecified Status: Acute (6) Leukocytosis ICD Code: D72.829 - Elevated white blood cell count, unspecified Status: Acute Assessment and Plan 72-year-old male admitted secondary to septic shock related to urinary tract infection. Labs reviewed. LFTs are elevated. Continue to monitor labs. Labs ordered for further monitoring. Follow LFT trends. Continue physical therapy. Anticipate potential need for fdc facility once patient medically stabilized. Septic shock Continue IV Levophed Continue to follow in ICU Treatment infections as below Follow blood cultures Urinary tract infection Rocephin Vancomycin Follow urine cultures A. fib RVR RVR may be related to tachycardia from sepsis Patient is a poor candidate for beta owen or diltiazem IV right now due to hypotension Monitor on telemetry for now Treat infection Consider amiodarone if needed Diabetes mellitus type 2 Follow blood sugars Insulin sliding scale Diabetic diet Hyperlipidemia Continue present treatment Follow as an outpatient Hx of HTN Hold BP treatments for now Follow BP Old myocardial infarction CAD Asymptomatic Follow clinically No change to baseline management planned at this point Problem Qualifiers (1) Afib: Qualified Codes: I48.1 - Persistent atrial fibrillation (2) Hypotension: Qualified Codes: I95.9 - Hypotension, unspecified (3) UTI (urinary tract infection): Qualified Codes: N39.0 - Urinary tract infection, site not specified; R31.9 - Hematuria, unspecified (4) Leukocytosis: Qualified Codes: D72.829 - Elevated white blood cell count, unspecified Hector Ureña MD Dec 15, 2017 11:21
[2017-12-15] MEDS: MELATONIN 5 MG TAB PO PRN (19:45)
[2017-12-15] MEDS: guaiFENesin SOLUTION 200 MG/10 ML CUP PO PRN (21:23)
[2017-12-16] VITALS (26 sets, daily range): BP systolic 93–127; BP diastolic 65–90; PULSE 120–140; RESP 15–36; TEMP 97.6–98.8; O2SAT 87–99
[2017-12-16] MEDS: ALPRAZolam 0.25 MG TAB PO PRN ×2 (02:47→19:32)
[2017-12-16] MEDS: CHLORHEXIDINE GLUCONATE 2 % 1 PACK (2 CLOTHS) TOP SCH (04:00)
[2017-12-16] MEDS: PHENAZOPYRIDINE HCL 100 MG TAB PO SCH ×3 (04:51→19:31)
[2017-12-16 05:29] LABS: AUTOMATED NEUTROPHIL # 4.2 TH/MM3 (1.8-7.7); BASOPHIL # 0.1 TH/MM3 (0-0.2); BASOPHIL % 0.9 % (0.0-2.0); EOSINOPHIL # 0.2 TH/MM3 (0-0.4); EOSINOPHIL % 3.4 % (0.0-4.0); HEMATOCRIT 37.3 % (39.0-51.0); HEMOGLOBIN 12.1 GM/DL (13.0-17.0); LYMPH % 20.3 % (9.0-44.0); LYMPHOCYTE # 1.3 TH/MM3 (1.0-4.8); MEAN CELL VOLUME 88.5 FL (80.0-100.0); MEAN CORPUSCULAR HEMOGLOBIN 28.8 PG (27.0-34.0); MEAN CORPUSCULAR HGB CONC 32.5 % (32.0-36.0); MEAN PLATELET VOLUME 9.2 FL (7.0-11.0); MONO % 11.7 % (0.0-8.0); MONOCYTE # 0.8 TH/MM3 (0-0.9); NEUT % 63.7 % (16.0-70.0); PLATELET COUNT 247 TH/MM3 (150-450); RED BLOOD COUNT 4.22 MIL/MM3 (4.50-5.90); RED CELL DISTRIBUTION WIDTH 17.1 % (11.6-17.2); WHITE BLOOD COUNT 6.6 TH/MM3 (4.0-11.0)
[2017-12-16 05:35] LABS: CHLORIDE 108 MEQ/L (98-107); SODIUM (NA) 141 MEQ/L (136-145)
[2017-12-16 05:39] LABS: ALBUMIN 2.9 GM/DL (3.4-5.0); BICARBONATE 25.7 MEQ/L (21.0-32.0); BLOOD UREA NITROGEN 28 MG/DL (7-18); CALCIUM 8.1 MG/DL (8.5-10.1); GLUCOSE,RANDOM 89 MG/DL (74-106); MAGNESIUM 2.1 MG/DL (1.5-2.5)
[2017-12-16 05:42] LABS: ALT (GPT) 186 U/L (12-78); AST (GOT) 260 U/L (15-37); GLOMERULAR FILTRATION RATE 66 ML/MIN (>89); PHOSPHORUS 2.1 MG/DL (2.5-4.9)
[2017-12-16 05:44] LABS: TOTAL BILIRUBIN ADULT 1.7 MG/DL (0.2-1.0); TOTAL PROTEIN 6.7 GM/DL (6.4-8.2)
[2017-12-16 05:45] LABS: ALKALINE PHOSPHATASE 87 U/L (45-117)
[2017-12-16] MEDS: guaiFENesin SOLUTION 200 MG/10 ML CUP PO PRN ×2 (05:48→19:31)
[2017-12-16] MEDS: SODIUM PHOSPHATE INJ 30 MMOL in SODIUM CHLOR 0.9% 250 ML INJ 240 ML IV PRN (06:36)
[2017-12-16] MEDS: FUROSEMIDE 20 MG TAB PO SCH ×2 (08:00→15:01)
[2017-12-16] MEDS: INSULIN ASPART SUPPLEMENTAL SCALE SQ SCH ×4 (08:00→19:33)
[2017-12-16] MEDS: POTASSIUM CHLORIDE 20 MEQ CONTROLLED RELEASE TAB PO SCH (08:45)
[2017-12-16] MEDS: DOCUSATE SODIUM 100 MG CAP PO SCH ×2 (08:45→19:32)
[2017-12-16] MEDS: APIXABAN 2.5 MG TABLET PO SCH ×2 (08:45→19:32)
[2017-12-16] MEDS: ASPIRIN EC 81 MG TABEC PO SCH (08:45)
[2017-12-16] MEDS: FAMOTIDINE 20 MG TAB PO SCH ×2 (08:45→19:31)
[2017-12-16] MEDS: SODIUM CHLORIDE 0.9% FLUSH 10 ML FLUSH IV FLUSH PRN (08:46)
[2017-12-16] MEDS: SODIUM CHLORIDE 0.9% FLUSH 10 ML FLUSH IV FLUSH SCH ×5 (08:46→19:33)
[2017-12-16] MEDS ORDERED: diphenhydrAMINE HCL 50 MG CAP PO PRN (10:30)
--- NOTE | 2017-12-16 11:53 | HHI.PR ---
Subjective Remarks Physical capacity is still very limited. Liver function tests are trending downward at this point. Etiology for transaminitis is likely related to prior septic shock. Patient reports no diarrhea. He says he's diuresing well. Lower extremity and scrotal edema still present. Objective Vital Signs Date Time Temp Pulse Resp B/P (MAP) Pulse Ox O2 Delivery O2 Flow Rate FiO2 12/16/17 07:35 99 Nasal Cannula 1.00 12/16/17 04:01 98.6 128 15 93/65 (74) 87 12/16/17 04:00 130 12/16/17 00:01 97.6 126 22 111/78 (89) 97 12/16/17 00:00 124 12/15/17 22:22 96 Nasal Cannula 1.00 12/15/17 20:01 97.5 136 29 121/83 (96) 97 12/15/17 20:00 134 12/15/17 17:01 134 28 101/85 (90) 96 12/15/17 16:01 132 12/15/17 16:01 132 30 106/82 (90) 98 12/15/17 16:00 126 12/15/17 15:53 98 Nasal Cannula 1.00 12/15/17 14:01 130 28 111/85 (94) 95 12/15/17 14:01 98.2 130 28 111/85 (94) 95 12/15/17 14:01 130 12/15/17 14:00 132 25 95 12/15/17 12:01 134 I/O 12/15/17 12/15/17 12/15/17 12/16/17 12/16/17 12/16/17 07:00 15:00 23:00 07:00 15:00 23:00 Output Total 550 ml 600 ml Balance -550 ml -600 ml Output Urine Total 550 ml 600 ml # Bowel Movements 6 5 6 Result Diagram: 12/16/17 0447 12/16/17446 Objective Remarks GENERAL: NAD, A&Ox3 HEAD: Normocephalic. NECK: Supple, trachea midline. No lymphadenopathy. EYES: No scleral icterus. No injection or drainage. CARDIOVASCULAR: Tachycardic rate and irregularly irregular rhythm without murmurs, gallops, or rubs. RESPIRATORY: Breath sounds equal bilaterally. No accessory muscle use. GASTROINTESTINAL: Abdomen soft, non-tender, nondistended. MUSCULOSKELETAL: No cyanosis, or edema. SKIN: Warm and dry. Lower extremity edema NEURO: No focal neurological deficitis. A/P Problem List: (1) Septic shock ICD Code: A41.9 - Sepsis, unspecified organism; R65.21 - Severe sepsis with septic shock Status: Acute (2) Afib ICD Code: I48.91 - Unspecified atrial fibrillation Status: Acute (3) Hypotension ICD Code: I95.9 - Hypotension, unspecified Status: Acute (4) UTI (urinary tract infection) ICD Code: N39.0 - Urinary tract infection, site not specified Status: Acute (5) Tachycardia ICD Code: R00.0 - Tachycardia, unspecified Status: Acute (6) Leukocytosis ICD Code: D72.829 - Elevated white blood cell count, unspecified Status: Acute Assessment and Plan 72-year-old male admitted secondary to septic shock related to urinary tract infection. Labs reviewed. LFTs have a downward trend today. Continue to monitor labs. Labs ordered for further monitoring. Follow LFT trends. Continue physical therapy. Anticipate potential need for long-term facility once patient medically stabilized. Lasix increased. Septic shock Continue IV Levophed Continue to follow in ICU Treatment infections as below Follow blood cultures Urinary tract infection Rocephin Vancomycin Follow urine cultures A. fib RVR RVR may be related to tachycardia from sepsis Patient is a poor candidate for beta owen or diltiazem IV right now due to hypotension Monitor on telemetry for now Treat infection Consider amiodarone if needed Diabetes mellitus type 2 Follow blood sugars Insulin sliding scale Diabetic diet Hyperlipidemia Continue present treatment Follow as an outpatient Hx of HTN Hold BP treatments for now Follow BP Old myocardial infarction CAD Asymptomatic Follow clinically No change to baseline management planned at this point Problem Qualifiers (1) Afib: Qualified Codes: I48.1 - Persistent atrial fibrillation (2) Hypotension: Qualified Codes: I95.9 - Hypotension, unspecified (3) UTI (urinary tract infection): Qualified Codes: N39.0 - Urinary tract infection, site not specified; R31.9 - Hematuria, unspecified (4) Leukocytosis: Qualified Codes: D72.829 - Elevated white blood cell count, unspecified Hector Ureña MD Dec 16, 2017 11:53
[2017-12-16] MEDS: MELATONIN 5 MG TAB PO PRN (19:32)
[2017-12-16] MEDS: BENZOCAINE 6 MG/MENTHOL 10 MG LOZENGE BUCCAL PRN (22:35)
[2017-12-17] VITALS (14 sets, daily range): BP systolic 94–130; BP diastolic 68–90; PULSE 114–138; RESP 22–33; TEMP 97.7–98.3; O2SAT 95–100
[2017-12-17] MEDS: CHLORHEXIDINE GLUCONATE 2 % 1 PACK (2 CLOTHS) TOP SCH (04:00)
[2017-12-17] MEDS: PHENAZOPYRIDINE HCL 100 MG TAB PO SCH ×3 (04:11→20:39)
[2017-12-17] MEDS: ALPRAZolam 0.25 MG TAB PO PRN (04:12)
[2017-12-17 04:51] LABS: AUTOMATED NEUTROPHIL # 4.8 TH/MM3 (1.8-7.7); BASOPHIL # 0.1 TH/MM3 (0-0.2); BASOPHIL % 1.8 % (0.0-2.0); EOSINOPHIL # 0.2 TH/MM3 (0-0.4); EOSINOPHIL % 3.2 % (0.0-4.0); HEMATOCRIT 38.8 % (39.0-51.0); HEMOGLOBIN 12.5 GM/DL (13.0-17.0); LYMPH % 18.8 % (9.0-44.0); LYMPHOCYTE # 1.3 TH/MM3 (1.0-4.8); MEAN CELL VOLUME 88.7 FL (80.0-100.0); MEAN CORPUSCULAR HEMOGLOBIN 28.7 PG (27.0-34.0); MEAN CORPUSCULAR HGB CONC 32.3 % (32.0-36.0); MONOCYTE # 0.6 TH/MM3 (0-0.9); NEUT % 68.2 % (16.0-70.0); PLATELET COUNT 294 TH/MM3 (150-450); RED BLOOD COUNT 4.37 MIL/MM3 (4.50-5.90)
[2017-12-17 05:06] LABS: CHLORIDE 108 MEQ/L (98-107); SODIUM (NA) 143 MEQ/L (136-145)
[2017-12-17 05:10] LABS: ALBUMIN 2.9 GM/DL (3.4-5.0); BICARBONATE 26.3 MEQ/L (21.0-32.0); BLOOD UREA NITROGEN 26 MG/DL (7-18); CALCIUM 7.5 MG/DL (8.5-10.1); GLUCOSE,RANDOM 103 MG/DL (74-106)
[2017-12-17 05:13] LABS: ALT (GPT) 170 U/L (12-78); AST (GOT) 204 U/L (15-37)
[2017-12-17 05:14] LABS: GLOMERULAR FILTRATION RATE 66 ML/MIN (>89)
[2017-12-17 05:15] LABS: TOTAL BILIRUBIN ADULT 1.5 MG/DL (0.2-1.0); TOTAL PROTEIN 6.7 GM/DL (6.4-8.2)
[2017-12-17 05:16] LABS: ALKALINE PHOSPHATASE 105 U/L (45-117)
[2017-12-17] MEDS ORDERED: FUROSEMIDE 40 MG TAB PO SCH (08:00)
[2017-12-17] MEDS: INSULIN ASPART SUPPLEMENTAL SCALE SQ SCH ×4 (08:00→20:39)
[2017-12-17] MEDS: DOCUSATE SODIUM 100 MG CAP PO SCH ×2 (08:18→20:39)
[2017-12-17] MEDS: SODIUM CHLORIDE 0.9% FLUSH 10 ML FLUSH IV FLUSH SCH ×5 (09:21→20:40)
[2017-12-17] MEDS: ASPIRIN EC 81 MG TABEC PO SCH (09:22)
[2017-12-17] MEDS: POTASSIUM CHLORIDE 20 MEQ CONTROLLED RELEASE TAB PO SCH (09:23)
[2017-12-17] MEDS: FAMOTIDINE 20 MG TAB PO SCH ×2 (09:23→20:39)
[2017-12-17] MEDS: APIXABAN 2.5 MG TABLET PO SCH ×2 (09:23→20:39)
[2017-12-17] MEDS: BENZOCAINE 6 MG/MENTHOL 10 MG LOZENGE BUCCAL PRN (09:23)
[2017-12-17] MEDS ORDERED: PILL SPLITTER OTHER PRN (13:30)
--- NOTE | 2017-12-17 13:42 | HHI.PR ---
Subjective Remarks Patient seen and evaluated today in follow-up for UTI with septic shock. Overall improved clinically. Heart rate still remains uncontrolled with atrial fibrillation. Blood pressure somewhat. Still complaining of some scrotal swelling. Care plan discussed with patient and spouse at bedside Objective Vitals Vital Signs Date Time Temp Pulse Resp B/P (MAP) Pulse Ox O2 Delivery O2 Flow Rate FiO2 12/17/17 12:00 132 12/17/17 10:00 128 12/17/17 08:00 138 12/17/17 04:01 97.8 130 33 104/68 (80) 12/17/17 04:00 132 12/17/17 00:00 136 12/16/17 23:49 98.8 140 23 112/77 (89) 95 12/16/17 20:40 97 Nasal Cannula 1.00 12/16/17 20:01 98.7 126 26 98/75 (83) 94 12/16/17 20:00 130 18 18:01 130 18 18:00 130 18 17:07 132 21 127/83 (98) 92 1818 17:07 130 18 17:01 130 18 16:01 98.5 130 26 95/85 (88) 96 18 16:01 130 18 16:00 130 18 15:01 122 24 113/82 (92) 98 18 15:01 130 18 14:01 134 26 113/90 (98) 92 18 14:01 130 18 14:00 130 I/O 12/16/1718 1818 18 18 12/17/17 07:00 15:00 23:00 07:00 15:00 23:00 Output Total 600 ml Balance -600 ml Output Urine Total 600 ml # Voids 4 # Bowel Movements 6 4 Result Diagram: 12/17/17 0424 12/17/17 0424 Imaging Last Impressions Liver Ultrasound 12/14/17 0000 Signed Impressions: Service Date/Time: Thursday, December 14, 2017 09:21 - CONCLUSION: 1. There is a small amount of ascites in the upper abdomen. 2. Enlarged liver with heterogeneous echotexture suggesting fatty infiltration. No focal mass seen. 3. There are small echogenic stones seen in the dependent portion of the gallbladder. There is a mild gallbladder wall thickening. The gallbladder wall thickening is not an unexpected finding with a small amount of ascites in the upper abdomen. Hector Abdullahi MD Chest X-Ray 12/13/17 0600 Signed Impressions: Service Date/Time: November 04:44 - CONCLUSION: Cardiomegaly with mild pulmonary vascular engorgement. Clear lungs. Neftali Reyna Jr., MD Renal Ultrasound 12/10/17 0000 Signed Impressions: Service Date/Time: Sunday, December 10, 2017 10:39 - CONCLUSION: 1. No renal mass or hydronephrosis. Mild ascites. Bladder decompressed by Rangel. Ignacio Lopez MD Objective Remarks GENERAL: This is a well-nourished, well-developed patient, in no apparent distress. CARDIOVASCULAR: Atrial fibrillation with rapid ventricular response, pacemaker without murmurs, gallops, or rubs. RESPIRATORY: Clear to auscultation. Breath sounds equal bilaterally. No wheezes , rales, or rhonchi. GASTROINTESTINAL: Abdomen soft, non-tender, nondistended. Normal active bowel sounds MUSCULOSKELETAL: Extremities without clubbing, cyanosis, or edema. NEURO: Alert & Oriented x4 to person, place, time, situation. Moves all ext x4 Date of Insertion: Dec 10, 2017 Line: Central Venous Catheter Location: Internal, Jugular A/P Problem List: (1) Afib ICD Code: I48.91 - Unspecified atrial fibrillation Status: Acute Plan: Patient's Coreg has been held due to hypotension We will add Lopressor if blood pressure will tolerate Off of digoxin for now but this may also be added (2) Hypotension ICD Code: I95.9 - Hypotension, unspecified Status: Acute Plan: Somewhat improved, patient on low-dose Lasix (3) UTI (urinary tract infection) ICD Code: N39.0 - Urinary tract infection, site not specified Status: Acute (4) Septic shock ICD Code: A41.9 - Sepsis, unspecified organism; R65.21 - Severe sepsis with septic shock Status: Acute Plan: Secondary to E. coli UTI, resolved Antibiotics completed Discharge Planning may need snf PT to assist with dc planning Problem Qualifiers (1) Afib: Qualified Codes: I48.1 - Persistent atrial fibrillation (2) Hypotension: Qualified Codes: I95.9 - Hypotension, unspecified (3) UTI (urinary tract infection): Qualified Codes: N39.0 - Urinary tract infection, site not specified; R31.9 - Hematuria, unspecified Mary Kay Haley MD Dec 17, 2017 13:42
[2017-12-17] MEDS: METOPROLOL TARTRATE 25 MG TAB PO SCH ×2 (16:35→20:39)
[2017-12-17] MEDS: FUROSEMIDE 20 MG TAB PO SCH (16:35)
[2017-12-18] VITALS (26 sets, daily range): BP systolic 93–134; BP diastolic 67–92; PULSE 84–142; RESP 20–32; TEMP 97.5–98.4; O2SAT 90–100
[2017-12-18] MEDS: CHLORHEXIDINE GLUCONATE 2 % 1 PACK (2 CLOTHS) TOP SCH (02:44)
[2017-12-18] MEDS: MELATONIN 5 MG TAB PO PRN (02:48)
[2017-12-18] MEDS: PHENAZOPYRIDINE HCL 100 MG TAB PO SCH ×3 (07:05→22:00)
[2017-12-18] MEDS ORDERED: DIGOXIN 0.5 MG/2 ML VIAL IVS STA (07:16)
[2017-12-18 07:24] LABS: CHLORIDE 107 MEQ/L (98-107); SODIUM (NA) 141 MEQ/L (136-145)
[2017-12-18] MEDS: INSULIN ASPART SUPPLEMENTAL SCALE SQ SCH ×3 (08:00→18:00)
[2017-12-18 08:01] LABS: ALKALINE PHOSPHATASE 110 U/L (45-117); ALT (GPT) 147 U/L (12-78); AST (GOT) 145 U/L (15-37); BICARBONATE 25.5 MEQ/L (21.0-32.0); BLOOD UREA NITROGEN 23 MG/DL (7-18); CALCIUM 8.4 MG/DL (8.5-10.1); GLOMERULAR FILTRATION RATE 66 ML/MIN (>89); GLUCOSE,RANDOM 98 MG/DL (74-106); TOTAL BILIRUBIN ADULT 1.5 MG/DL (0.2-1.0); TOTAL PROTEIN 6.9 GM/DL (6.4-8.2)
[2017-12-18] MEDS: SODIUM CHLORIDE 0.9% FLUSH 10 ML FLUSH IV FLUSH SCH ×5 (09:00→20:22)
[2017-12-18] MEDS: DOCUSATE SODIUM 100 MG CAP PO SCH ×2 (09:00→20:22)
[2017-12-18] MEDS: FAMOTIDINE 20 MG TAB PO SCH ×2 (10:08→20:23)
[2017-12-18] MEDS: POTASSIUM CHLORIDE 20 MEQ CONTROLLED RELEASE TAB PO SCH (10:08)
[2017-12-18] MEDS: FUROSEMIDE 20 MG TAB PO SCH (10:08)
[2017-12-18] MEDS: APIXABAN 2.5 MG TABLET PO SCH ×2 (10:08→20:23)
[2017-12-18] MEDS: ASPIRIN EC 81 MG TABEC PO SCH (10:09)
--- NOTE | 2017-12-18 12:45 | HHI.PR ---
Subjective Remarks Patient seen and evaluated today in follow-up for A. fib, hypotension and for edema with resolving UTI with sepsis. Overall improved clinically however his heart rate still is high and his blood pressure is low. Patient still complaining of quite a bit of insomnia despite melatonin and Benadryl Objective Vitals Vital Signs Date Time Temp Pulse Resp B/P (MAP) Pulse Ox O2 Delivery O2 Flow Rate FiO2 12/18/17 09:30 98.2 138 22 134/92 (106) 97 12/18/17 09:30 138 12/18/17 07:02 142 29 100/87 (91) 99 12/18/17 06:02 97.9 142 30 96/83 (87) 98 12/18/17 05:02 112 26 101/70 (80) 95 12/18/17 04:19 130 12/18/17 04:02 116 28 113/83 (93) 96 12/18/17 03:02 108 26 113/79 (90) 96 12/18/17 02:02 106 31 103/84 (90) 90 12/18/17 01:02 110 30 95/87 (90) 96 12/18/17 00:02 98.0 102 29 93/74 (80) 96 12/18/17 00:00 106 12/17/17 23:24 114 28 112/75 (87) 97 12/17/17 22:02 114 28 110/82 (91) 95 12/17/17 21:02 130 30 104/90 (95) 96 12/17/17 20:20 120 12/17/17 20:20 98.3 114 24 130/80 (97) 97 12/17/17 20:00 97 Nasal Cannula 2.00 12/17/17 16:00 97.8 138 24 94/71 (79) 96 12/17/17 16:00 130 12/17/17 14:00 134 29 111/77 (88) 97 12/17/17 14:00 138 I/O 12/17/17 12/17/17 12/17/17 12/18/17 12/18/17 12/18/17 07:00 15:00 23:00 07:00 15:00 23:00 Intake Total 650 ml Output Total 400 ml 400 ml Balance 250 ml -400 ml Intake Oral 650 ml Output Urine Total 400 ml 400 ml # Voids 4 # Bowel Movements 4 0 Result Diagram: 12/17/17 0424 12/18/17 0655 Objective Remarks GENERAL: This is a well-nourished, well-developed patient, in no apparent distress. CARDIOVASCULAR: Atrial fibrillation with rapid ventricular response, pacemaker without murmurs, gallops, or rubs. RESPIRATORY: Clear to auscultation. Breath sounds equal bilaterally. No wheezes , rales, or rhonchi. GASTROINTESTINAL: Abdomen soft, non-tender, nondistended. Normal active bowel sounds MUSCULOSKELETAL: Extremities without clubbing, cyanosis, or edema. NEURO: Alert & Oriented x4 to person, place, time, situation. Moves all ext x4 Date of Insertion: Dec 10, 2017 Line: Central Venous Catheter Location: Internal, Jugular A/P Problem List: (1) Afib ICD Code: I48.91 - Unspecified atrial fibrillation Status: Acute Plan: Continue with digoxin load and follow level (2) Hypotension ICD Code: I95.9 - Hypotension, unspecified Status: Acute Plan: Somewhat improved, patient on low-dose Lasix (3) Transaminitis ICD Code: R74.0 - Nonspecific elevation of levels of transaminase and lactic acid dehydrogenase [LDH] Plan: Improved Likely from hepatic shock Assessment and Plan We will check blood sugar every 12 hours and is quite well controlled Patient with some evidence of moderate malnourishment and we will adjust his diet more liberally Discharge Planning may need snf PT to assist with dc planning PENDING CLINICAL improvement of heart rate Problem Qualifiers (1) Afib: Qualified Codes: I48.1 - Persistent atrial fibrillation (2) Hypotension: Qualified Codes: I95.9 - Hypotension, unspecified Mary Kay Haley MD Dec 18, 2017 12:45
[2017-12-18] MEDS ORDERED: TEMAZEPAM 15 MG CAP PO PRN (13:00)
[2017-12-18] MEDS ORDERED: KETOROLAC TROMETHAMINE 30 MG/ML (IVP) VIAL IV PUSH ONE (13:00)
[2017-12-18] MEDS: DIGOXIN 0.5 MG/2 ML VIAL IVS SCH ×2 (14:22→20:22)
[2017-12-18] MEDS: guaiFENesin SOLUTION 200 MG/10 ML CUP PO PRN (14:27)
[2017-12-19] VITALS (16 sets, daily range): BP systolic 68–128; BP diastolic 46–94; PULSE 70–132; RESP 17–41; TEMP 98.2–98.6; O2SAT 94–100
[2017-12-19] MEDS: CHLORHEXIDINE GLUCONATE 2 % 1 PACK (2 CLOTHS) TOP SCH (04:00)
[2017-12-19] MEDS: INSULIN ASPART SUPPLEMENTAL SCALE SQ SCH ×2 (06:00→18:00)
[2017-12-19] MEDS: PHENAZOPYRIDINE HCL 100 MG TAB PO SCH ×2 (06:23→16:21)
[2017-12-19] MEDS: DOCUSATE SODIUM 100 MG CAP PO SCH (09:00)
[2017-12-19] MEDS ORDERED: DIGOXIN 0.25 MG TAB PO SCH (09:00)
[2017-12-19] MEDS: FUROSEMIDE 20 MG TAB PO SCH (09:55)
[2017-12-19] MEDS: ASPIRIN EC 81 MG TABEC PO SCH (09:55)
[2017-12-19] MEDS: POTASSIUM CHLORIDE 20 MEQ CONTROLLED RELEASE TAB PO SCH (09:55)
[2017-12-19] MEDS: FAMOTIDINE 20 MG TAB PO SCH (09:55)
[2017-12-19] MEDS: APIXABAN 2.5 MG TABLET PO SCH (09:56)
[2017-12-19] MEDS: SODIUM CHLORIDE 0.9% FLUSH 10 ML FLUSH IV FLUSH PRN (10:00)
[2017-12-19] MEDS: SODIUM CHLORIDE 0.9% FLUSH 10 ML FLUSH IV FLUSH SCH ×3 (10:00→10:03)
--- NOTE | 2017-12-19 12:08 | HHI.FF ---
Face to Face Verification Diagnosis: (1) Transaminitis (2) Afib Physical Therapy Order: Evaluate and Treat, Improve ambulation, Strength and gait training Occupational Therapy Order: Evaluate and Treat, Improve ADL Home Health Nursing Order: Medical education I have seen patient Casper DunlapSr on 12/19/17. My clinical findings support the need for the requested home health care services because: Patient has SOB Limited ability to care for self High risk of falls I certify that my clinical findings support that this patient is homebound because: Unsteady gait/balance Mary Kay Haley MD Dec 19, 2017 12:08
[2017-12-19] MEDS ORDERED: DIGO0.25 PO (12:14)
[2017-12-19] MEDS ORDERED: POTA20TA5 PO (12:14)
[2017-12-19] MEDS ORDERED: FURO20TA PO (12:14)
[2017-12-19] MEDS ORDERED: REST15CA PO (12:14)
[2017-12-19] MEDS ORDERED: TAMSULOSIN HCL 0.4 MG CAP PO SCH (15:30)
[2017-12-19] MEDS ORDERED: OXYGENDME NAS.CANULA (15:40)
--- NOTE | 2017-12-19 15:42 | HHI.PR ---
Subjective Remarks Patient seen in room in follow-up for discharge planning. Patient still with hypoxemia likely due to congestive heart failure. Feels a bit stronger blood pressure heart rate are improved. Discharge plans discussed with patient and nursing team Objective Vitals Vital Signs Date Time Temp Pulse Resp B/P (MAP) Pulse Ox O2 Delivery O2 Flow Rate FiO2 12/19/17 14:00 3.00 12/19/17 08:03 95 Nasal Cannula 3.00 12/19/17 04:02 70 19 102/69 (80) 97 12/19/17 04:00 70 12/19/17 03:02 104/73 (83) 97 12/19/17 02:02 72 20 93/61 (72) 96 12/19/17 01:02 74 21 99/65 (76) 96 12/19/17 00:02 98.5 84 30 102/67 (79) 96 12/19/17 00:00 79 12/18/17 23:02 84 21 98/72 (81) 96 12/18/17 22:02 88 20 98/67 (77) 97 12/18/17 21:02 122 25 113/87 (96) 96 12/18/17 20:40 98 Nasal Cannula 3.00 12/18/17 20:02 97.5 108 25 93/77 (82) 96 12/18/17 20:00 113 12/18/17 19:02 110 21 105/82 (90) 96 12/18/17 18:00 104 12/18/17 16:00 98.4 126 27 108/91 (97) 93 12/18/17 16:00 140 I/O 12/18/17 12/18/17 12/18/17 12/19/17 12/19/17 12/19/17 06:59 14:59 22:59 06:59 14:59 22:59 Intake Total 500 ml Output Total 400 ml 300 ml 1200 ml Balance -400 ml 200 ml -1200 ml Intake Oral 500 ml Output Urine Total 400 ml 300 ml 1200 ml Bladder Scan Volume Amount 746 ml # Voids 2 # Bowel Movements 0 Result Diagram: 12/17/17 0424 12/18/17 0655 Objective Remarks GENERAL: This is a well-nourished, well-developed patient, in no apparent distress. CARDIOVASCULAR: Atrial fibrillation with rapid ventricular response, pacemaker without murmurs, gallops, or rubs. RESPIRATORY: Clear to auscultation. Breath sounds equal bilaterally. No wheezes , rales, or rhonchi. GASTROINTESTINAL: Abdomen soft, non-tender, nondistended. Normal active bowel sounds MUSCULOSKELETAL: Extremities without clubbing, cyanosis, or edema. NEURO: Alert & Oriented x4 to person, place, time, situation. Moves all ext x4 Date of Insertion: Dec 10, 2017 Line: Central Venous Catheter Location: Internal, Jugular A/P Problem List: (1) Afib ICD Code: I48.91 - Unspecified atrial fibrillation Status: Acute Plan: Continue with digoxin (2) Hypotension ICD Code: I95.9 - Hypotension, unspecified Status: Acute Plan: Somewhat improved, patient on low-dose Lasix (3) Transaminitis ICD Code: R74.0 - Nonspecific elevation of levels of transaminase and lactic acid dehydrogenase [LDH] Plan: Improved Likely from hepatic shock (4) Urinary retention ICD Code: R33.9 - Retention of urine, unspecified Plan: mild add flomax US shows 250 in but the ptn voided a bit after US when standing If no improvement may need to replace asher (5) Acute respiratory failure ICD Code: J96.00 - Acute respiratory failure, unspecified whether with hypoxia or hypercapnia Plan: Patient still hypoxemic but oxygen supplementation Due to CHF Repeat chest x-ray, increase Lasix (6) CHF (congestive heart failure) ICD Code: I50.9 - Heart failure, unspecified Plan: Continue medical mgt as his BP will tolerate diurese Assessment and Plan We will check blood sugar every 12 hours and is quite well controlled Patient with some evidence of moderate malnourishment and we will adjust his diet more liberally Discharge Planning may need snf PT to assist with dc planning PENDING CLINICAL improvement of heart rate Problem Qualifiers (1) Afib: Qualified Codes: I48.1 - Persistent atrial fibrillation (2) Hypotension: Qualified Codes: I95.9 - Hypotension, unspecified Mary Kay Haley MD Dec 19, 2017 15:42
[2017-12-19] MEDS ORDERED: FUROSEMIDE 20 MG/2 ML VIAL IV PUSH ONE (15:45)
--- NOTE | 2017-12-19 17:20 | RADRPT ---
EXAM DATE/TIME: 12/19/2017 16:50 [facility] COMPARISON: CHEST SINGLE AP, December 13, 2017, 4:44. INDICATIONS : Respiratory distress MEDICAL HISTORY : None. SURGICAL HISTORY : Pacemaker. CABG ENCOUNTER: Subsequent ACUITY: 1 week PAIN SCORE: 0/10 LOCATION: Bilateral chest FINDINGS: Pacer implanted in the left chest. Moderate cardiomegaly with minimal interstitial edema and develop ing consolidation changes left base. There is no pleural effusion. Central line superior cava innominate vein junction. CONCLUSION: Mild congestive failure with progression Developing consolidation left base. Geovanny Abdullahi MD FACR on December 19, 2017 at 17:16 Board Certified Radiologist. This report was verified electronically.
[2017-12-19] MEDS ORDERED: TAMS5CAP PO (19:21)
== END 2017-12-19 19:55 | disposition home health service (06) | DRG 871 ==
LOC: PHED 11:24 → PHEDA 15:11 → PHICU 17:02
PROVIDERS: ADMIT Hospitalist; ATTEND Hospitalist
PROC: 02HV33Z Insertion of Infusion Device into Superior Vena Cava, Percutaneous Approach (ICD-10-PCS; principal; 2017-12-10)
PROC: 0T9B70Z Drainage of Bladder with Drainage Device, Via Natural or Artificial Opening (ICD-10-PCS; 2017-12-18)
DX: A41.9 Sepsis, unspecified organism (principal); R65.21 Severe sepsis with septic shock; J96.01 Acute respiratory failure with hypoxia; N17.9 Acute kidney failure, unspecified; E44.0 Moderate protein-calorie malnutrition; I42.9 Cardiomyopathy, unspecified; D69.6 Thrombocytopenia, unspecified; I11.0 Hypertensive heart disease with heart failure; I50.22 Chronic systolic (congestive) heart failure; I48.1 Persistent atrial fibrillation; N39.0 Urinary tract infection, site not specified; E83.39 Other disorders of phosphorus metabolism; E11.9 Type 2 diabetes mellitus without complications; D64.9 Anemia, unspecified; E78.5 Hyperlipidemia, unspecified; I25.10 Atherosclerotic heart disease of native coronary artery without angina pectoris; R00.0 Tachycardia, unspecified; G47.33 Obstructive sleep apnea (adult) (pediatric); M19.90 Unspecified osteoarthritis, unspecified site; M54.30 Sciatica, unspecified side; Z96.653 Presence of artificial knee joint, bilateral; I34.0 Nonrheumatic mitral (valve) insufficiency; B96.20 Unspecified Escherichia coli [E. coli] as the cause of diseases classified elsewhere; R33.9 Retention of urine, unspecified; R19.7 Diarrhea, unspecified; R74.0 Nonspecific elevation of levels of transaminase and lactic acid dehydrogenase [LDH]; R79.89 Other specified abnormal findings of blood chemistry; Z68.35 Body mass index [BMI] 35.0-35.9, adult; I25.2 Old myocardial infarction; Z95.1 Presence of aortocoronary bypass graft; Z95.5 Presence of coronary angioplasty implant and graft; Z95.810 Presence of automatic (implantable) cardiac defibrillator; Z79.01 Long term (current) use of anticoagulants; Z79.82 Long term (current) use of aspirin; Z79.899 Other long term (current) drug therapy; Z86.73 Personal history of transient ischemic attack (TIA), and cerebral infarction without residual deficits; Z82.49 Family history of ischemic heart disease and other diseases of the circulatory system; F41.9 Anxiety disorder, unspecified; G47.00 Insomnia, unspecified
CPT/HCPCS: 36556; 51702; 71045; 76705; 76775; 76937; 80053; 80061; 80162; 81001; 82150; 82550; 82570; 82948; 83036; 83605; 83690; 83735; 84100; 84300; 84443; 84484; 85007; 85025; 85027; 85384; 85610; 85730; 87040; 87077; 87086; 87186; 87205; 87493; 87641; 93005; 93306; 94150; 94618; 94640; 94664; 96365; J0692; J0696; J0744; J1160; J1650; J1815; J1940; J3370; J3475; J7030; J7040; J7050; Q0163

== ENCOUNTER 2017-12-23 03:36 | Emergency (ER) | payer MEDICARE, OTHER ==
[~2017-12-23] VITALS: Ht 185.4 cm; Wt 113.0 kg
[~2017-12-23 03:36] MED LIST changes: -CORE25TA PO; +DIGO0.25 PO; -FENO50TA PO; -FURO1TAB62 PO; +FURO20TA PO; -LIPI10TA PO; -METF500T PO; +OXYGENDME NAS.CANULA; +POTA20TA5 PO; +REST15CA PO; +TAMS5CAP PO
[2017-12-23 03:40] VITALS: BP 103/81; PULSE 108; RESP 18; TEMP 98.2; O2SAT 96
[2017-12-23 04:11] VITALS: BP 111/79; PULSE 97; RESP 22; TEMP 98; O2SAT 93
[2017-12-23] MEDS ORDERED: LIPI20TA PO (04:36)
[2017-12-23] MEDS ORDERED: METF500T PO (04:36)
[2017-12-23] MEDS ORDERED: FENO50TA PO (04:36)
[2017-12-23 04:39] LABS: AUTOMATED NEUTROPHIL # 6.2 TH/MM3 (1.8-7.7); BASOPHIL # 0.1 TH/MM3 (0-0.2); EOSINOPHIL # 0.2 TH/MM3 (0-0.4); EOSINOPHIL % 2.3 % (0.0-4.0); HEMATOCRIT 41.3 % (39.0-51.0); HEMOGLOBIN 13.4 GM/DL (13.0-17.0); LYMPH % 16.5 % (9.0-44.0); LYMPHOCYTE # 1.4 TH/MM3 (1.0-4.8); MEAN CELL VOLUME 88.6 FL (80.0-100.0); MEAN CORPUSCULAR HEMOGLOBIN 28.7 PG (27.0-34.0); MEAN CORPUSCULAR HGB CONC 32.4 % (32.0-36.0); MEAN PLATELET VOLUME 8.5 FL (7.0-11.0); MONO % 7.2 % (0.0-8.0); MONOCYTE # 0.6 TH/MM3 (0-0.9); PLATELET COUNT 267 TH/MM3 (150-450); RED BLOOD COUNT 4.67 MIL/MM3 (4.50-5.90); RED CELL DISTRIBUTION WIDTH 17.8 % (11.6-17.2); WHITE BLOOD COUNT 8.5 TH/MM3 (4.0-11.0)
[2017-12-23 04:48] LABS: CALCIUM 9.2 MG/DL (8.5-10.1)
[2017-12-23 04:49] LABS: BICARBONATE 26.8 MEQ/L (21.0-32.0)
[2017-12-23 04:52] LABS: CREATININE 0.91 MG/DL (0.60-1.30)
[2017-12-23 04:57] LABS: TROPONIN I 0.04 NG/ML (0.02-0.05)
[2017-12-23 05:43] VITALS: BP 105/72; PULSE 100; RESP 20; O2SAT 98
--- NOTE | 2017-12-23 06:31 | PD ---
HPI Chief Complaint: Abdominal Pain Time Seen by Provider: 06:17 Travel History International Travel<30 days: No Contact w/Intl Traveler<30days: No Traveled to known affect area: No History of Present Illness HPI The patient is a 72-year-old male that complains of midline epigastric pain, a soreness feeling of 5 over 6/10 since about 1 in the morning. The patient sat up and now feels somewhat better. He states they gave him Pepcid in the hospital and this did well. He states he does have a history of GERD. He apparently was in the hospital last week for sepsis and urinary tract infection. He denies any melanotic or bloody stools. He is on Eliquis for atrial fibrillation. His pain is a 1/10 now. He denies any nausea or vomiting. PFSH Past Medical History Hx Anticoagulant Therapy: Yes Arthritis: Yes Atrial Fibrillation: Yes Anxiety: No Depression: No Heart Rhythm Problems: Yes (A-fib) Cancer: No Cardiac Catheterization: Yes Cardiovascular Problems: Yes High Cholesterol: Yes Chest Pain: Yes Cerebrovascular Accident: Yes (WORKUP WITH THIS ADMISSION ) Coronary Artery Disease: Yes Diabetes: Yes (TYPE 2 ) Patient Takes Glucophage: Yes Diminished Hearing: No Endocrine: Yes Genitourinary: No Hypertension: Yes Immune Disorder: No Implanted Vascular Access Dvce: Yes Musculoskeletal: Yes Neurologic: Yes Psychiatric: No Reproductive: No Respiratory: No Myocardial Infarction: Yes (x5) Sleep Apnea: Yes (USES CPAP) Tetanus Vaccination: Unknown Influenza Vaccination: No Past Surgical History AICD: Yes Cardiac Surgery: Yes (DOUBLE BYPASS, Pacer in/out, DEFIB ABD PACER IN ) Coronary Artery Bypass Graft: Yes (2012) Coronary Stent: Yes (7 STENTS TOTAL) Pacemaker: Yes Other Surgery: Yes Social History Alcohol Use: No Tobacco Use: No Substance Use: No Allergies-Medications (Allergen,Severity, Reaction): Coded Allergies: MRI PRECAUTION (Verified Allergy, Severe, DEFIBRILLATOR, 12/23/17) PACEMAKER DIFIBRILLATOR, 10/27/17 DML amitriptyline (Verified Allergy, Unknown, 12/23/17) indomethacin (Verified Allergy, Unknown, 12/23/17) meperidine (Verified Allergy, Unknown, 12/23/17) Reported Meds & Prescriptions Reported Meds & Active Scripts Active Flomax (Tamsulosin HCl) 0.4 Mg Cap 0.4 Mg PO DAILY Oxygen (O2) Device Liter TANMAY.CANULA CONTINUOUS Oxygen Concentrator Portable Gaseous 2 L/min via Nasal Canula Continuous For 99 months Potassium Chloride Microencaps 20 Meq Tab 20 Meq PO EVERY OTHER DAY Furosemide 20 Mg Tab 10 Mg PO DAILY Restoril (Temazepam) 15 Mg Cap 15 Mg PO HS PRN Digoxin 0.25 Mg Tab 0.25 Mg PO DAILY Reported Tricor (Fenofibrate) 145 Mg Tab 145 Mg PO EVERY OTHER DAY Takw with food. Lipitor (Atorvastatin Calcium) 20 Mg Tab 20 Mg PO HS Metformin (Metformin HCl) 500 Mg Tab 500 Mg PO BIDPC Ecotrin Low Strength (Aspirin) 81 Mg Tabdr 81 Mg PO DAILY Eliquis (Apixaban) 2.5 Mg Tab 2.5 Mg PO BID Lisinopril 2.5 Mg Tab 2.5 Mg PO DAILY Centrum (Multiple Vitamins W/ Minerals) 1 Chew 1 Tab CHEW DAILY Review of Systems Except as stated in HPI: all other systems reviewed are Neg Physical Exam Narrative GENERAL: Well-nourished, well-developed patient in minimal apparent distress with his midline epigastric discomfort. His vital signs show heart rate of 108 but are otherwise normal. SKIN: Focused skin assessment warm/dry. HEAD: Normocephalic. EYES: No scleral icterus. No injection or drainage. NECK: Supple, trachea midline. No JVD or lymphadenopathy. CARDIOVASCULAR: Regular rate and rhythm without murmurs, gallops, or rubs. RESPIRATORY: Breath sounds equal bilaterally. No accessory muscle use. GASTROINTESTINAL: Abdomen soft, with minimal discomfort to direct palpation in the midline epigastrium, nondistended. No guarding or rebound is present. MUSCULOSKELETAL: No cyanosis, or edema. BACK: Nontender without obvious deformity. No CVA tenderness. Data Data Last Documented VS Vital Signs Date Time Temp Pulse Resp B/P (MAP) Pulse Ox O2 Delivery O2 Flow Rate FiO2 12/23/17 05:43 100 20 105/72 (83) 98 Room Air 12/23/17 04:11 98.0 12/23/17 04:11 2.00 Orders Orders Electrocardiogram (12/23/17 04:16) Complete Blood Count With Diff (12/23/17 04:16) Basic Metabolic Panel (Bmp) (12/23/17 04:16) Troponin I (12/23/17 04:16) Lipase (12/23/17 06:17) Labs Laboratory Tests Test 12/23/17 04:05 White Blood Count 8.5 TH/MM3 Red Blood Count 4.67 MIL/MM3 Hemoglobin 13.4 GM/DL Hematocrit 41.3 % Mean Corpuscular Volume 88.6 FL Mean Corpuscular Hemoglobin 28.7 PG Mean Corpuscular Hemoglobin Concent 32.4 % Red Cell Distribution Width 17.8 % Platelet Count 267 TH/MM3 Mean Platelet Volume 8.5 FL Neutrophils (%) (Auto) 73.0 % Lymphocytes (%) (Auto) 16.5 % Monocytes (%) (Auto) 7.2 % Eosinophils (%) (Auto) 2.3 % Basophils (%) (Auto) 1.0 % Neutrophils # (Auto) 6.2 TH/MM3 Lymphocytes # (Auto) 1.4 TH/MM3 Monocytes # (Auto) 0.6 TH/MM3 Eosinophils # (Auto) 0.2 TH/MM3 Basophils # (Auto) 0.1 TH/MM3 CBC Comment DIFF FINAL Differential Comment Blood Urea Nitrogen 13 MG/DL Creatinine 0.91 MG/DL Random Glucose 101 MG/DL Calcium Level 9.2 MG/DL Sodium Level 139 MEQ/L Potassium Level 3.9 MEQ/L Chloride Level 105 MEQ/L Carbon Dioxide Level 26.8 MEQ/L Anion Gap 7 MEQ/L Estimat Glomerular Filtration Rate 82 ML/MIN Troponin I 0.04 NG/ML MDM Medical Decision Making Medical Screen Exam Complete: Yes Emergency Medical Condition: Yes Medical Record Reviewed: Yes Interpretation(s) The CBC is normal. The EKG shows atrial fibrillation with electronic ventricular pacemaker and no acute ST elevation or depression. Differential Diagnosis Ulcer pain, GERD, gastritis, pancreatitis-unlikely Narrative Course The patient appears to have GERD. He has essentially no pain now. He will be given prescriptions for Pepcid and Prilosec. He needs to follow-up with his primary care physician. Diagnosis Primary Impression: GERD (gastroesophageal reflux disease) Additional Instructions: As we discussed, the medications Pepcid is 1 twice daily and the omeprazole is 1 tablet once daily. Both of these cut down on acid production. Also, you can try liquid Maalox/Mylanta when you get this pain again. Remember to sit up so that the acid states the stomach and is not able to reach the esophagus. Follow -up with your primary care physician this week. Med/Other Pt SpecificInfo: Prescription(s) given Scripts Famotidine (Pepcid) 20 Mg Tab 20 MG PO BID, #60 TAB 0 Refills Prov: Jayson Forman MD 12/23/17 Omeprazole (Omeprazole) 20 Mg Tab 20 MG PO DAILY, #30 TAB 0 Refills Prov: Jayson Forman MD 12/23/17 Disposition: 01 DISCHARGE HOME Condition: Stable Jayson Forman MD Dec 23, 2017 06:31
[2017-12-23] MEDS ORDERED: FAMO1TAB37 PO (06:35)
[2017-12-23] MEDS ORDERED: OMEP20TA93 PO (06:35)
[2017-12-23] MEDS ORDERED: FAMOTIDINE 20 MG TAB PO ONE (06:45)
--- NOTE | 2017-12-23 19:57 | EKG ---
Date Performed: 12/23/2017 Time Performed: 03:47:04 PTAGE: 72 years EKG: ATRIAL FIBRILLATION WITH VENTRICULAR PACING ELECTRONIC VENTRICULAR PACEMAKER -- CONTOUR EHRMELINDA LYSIS BASED ON INTRINSIC RHYTHM INTRAVENTRICULAR CONDUCTION DELAY POSSIBLE ANTERIOR MYOCARDIAL INFARC TION Since the previous tracing, no significant change noted, except for a decrease in heart rate ABN ORMAL ECG PREVIOUS TRACING : 12/10/2017 17.33 DOCTOR: Vladimir Rincon Interpretating Date/Time 12/23/2017 19:55:51
== END 2017-12-23 06:59 | disposition home or self-care (01) ==
LOC: PHED 03:36
DX: K21.9 Gastro-esophageal reflux disease without esophagitis (principal); I48.91 Unspecified atrial fibrillation; R94.31 Abnormal electrocardiogram [ECG] [EKG]; M19.90 Unspecified osteoarthritis, unspecified site; I25.10 Atherosclerotic heart disease of native coronary artery without angina pectoris; I10 Essential (primary) hypertension; I25.2 Old myocardial infarction; G47.30 Sleep apnea, unspecified; Z95.0 Presence of cardiac pacemaker
CPT/HCPCS: 80048; 83690; 84484; 85025; 93005; 99284